=== PATIENT | female | born 1995 | race Two or more races ===

== ENCOUNTER 2024-04-27 10:08 | Outpatient (OUT) | payer BC, SELFPAY ==
--- NOTE | 2024-04-27 10:11 | US_ITS ---
[address] [address] Patient Name: COLE TIJERINA MRN: [id number] date: 1995 Sex: F Assigned Patient Location: [facility] Current Patient Location: [facility] Accession/Order Number: [id number] Exam Date: 04/27/2024 10:11 Report Date: 04/27/2024 12:12 At the request of: WALE BRICEÑO Procedure: US OB transvaginal EXAMINATION: US OB transvaginal HISTORY: MISSED MENSES COMPARISON: No relevant comparison available. FINDINGS: Haynes intrauterine gestation Gestational sac: 4.69 cm, 10 weeks 2 days CRL: 3.54 cm, 10 weeks 3 days Yolk sac: 5.1 mm Heart rate: 160 beats minute Cervix: Closed, 3.5 cm The uterus is normal, anteverted, anteflexed The ovaries are normal. Clinical age: 10 weeks 4 days Clinical HILLARY: 11/19/2024 Ultrasound age: 10 weeks 3 days Ultrasound HILLARY: 11/20/2024 US/US OB transvaginal IMPRESSION: Viable haynes intrauterine gestation measuring 10 weeks 3 days Electronically authenticated by: MARGARET JOSEPH Date: 04/27/2024 12:12
== END 2024-04-27 10:09 | disposition home or self-care (01) ==
LOC: NOMS 10:08
PROVIDERS: PCP Family Medicine; Visit Provider Obstetrics & Gynecology
DX: Z34.01 Encounter for supervision of normal first pregnancy, first trimester (principal); Z3A.10 10 weeks gestation of pregnancy; N92.6 Irregular menstruation, unspecified
CPT/HCPCS: 76817

== ENCOUNTER 2024-05-15 11:19 | Outpatient (OUT) | payer BC, SELFPAY ==
--- OUTSIDE RECORDS SUMMARY | 2024-05-15 11:27 | XMS_ITS | CCD ---
Author Organization [facility] Care Team Providers Care Lead Driver Name Role Phone Steffen Guillaume MD Primary Care Provider Allergies Allergy Classification Reported Allergen(s) Allergy Type Date of Onset Reaction(s) Facility (1 source) Shrimp product Propensity to adverse reactions [facility] Problems Problem Classification Problem Date Documented Da te Episodic/Chronic Menstrual disorders (1 source) Missed period; Translations: [Irregular menstruation, unspecified] 04-27-2024 Chronic Other and delivery including normal (2 sources) ; Translations: [Encounter for supervision of normal , unspecified, unspecified trimester] 04-27-2024 Episodic Results Test Name Value Interpretation Reference Range Facil ity HCG ( test) Ql (U)o n 04-27-2024 Interpretation and review of laboratory results Abnormal [facility] Preg Test, Ur Positive [facility] Urinalysis macro (dipstick) panel (U)on 04-27-2024 Bilirubin, UA Negative Negative - 4(7 0) +++ mg/dL [facility] Blood, UA Negative Negative - 50 Calderon/mcL [facility] Clarity, UA Clear [facility] Color, UA Yellow [facility] Glucose, UA Negative Negative - 1999(110) ++++ mg/dL [facility] Interpretation and review of laboratory results Abnormal [facility] Ketones, UA Negative Negative - 160(16) ++++ mg/dL [facility] Leukocytes, UA Trace Negative - 500+++ Eyal/mcL [facility] Nitrite, UA Negative Negative - Positive [facility] Healthcare pH, UA 7.5 5 - 9 [facility] Protein, UA Negative Negative - 1999(20) ++++ mg/dL [facility] Spec Grav, UA 1.02 1 - 1.03 [facility] Urobilinogen, UA 0.2 0.2 - 12 mg/dL [facility] Registrationon 02-17-2021 Registration [id number]#[id number] 0CD:127 [facility] Consent for Treatmenton Consent for Treatment [id number]#[id number] 0CD:127 [facility] Vital Signs Date Time Vital Sign Value Performing Clinician Faci lity 04-27-2024 10:48-0400 Body weight 57.61 kg [facility] Nurse [facility] 04-27-2024 10:48-0400 Diastolic blood pressure 68 mm[Hg] [facility] Nurse [facility] 04-27-2024 10:48-0400 Systolic blood pressure 100 mm[Hg] [facility] Nurse [facility] Healthcare Encounters Encounter Date Encounter Type Care Provider Facility Start: 04-27-2024 End: 04-27-2024 ambulatory Not Available Start: 04-27-2024 End: 04-27-2024 Office outpatient visit 5 minutes [facility] Ob [facility] Nurse [facility] OB Comment on above: GA: 10w4d Procedures Date Procedure Procedure Detail Performing Clinician Start: 04-27-2024 End: 04-27-2024 Urnls dip stick/tablet rgnt non-auto w/o micrscp Anton Cox DO Work Phone: Plan of Treatment Date Care Activity Detail Author Start: 05-28-2024 End: 05-28-2024 Patient encounter procedure 05/28/2024 1:40 PM EST Routine [facility] [address] [place] [address] Anton Cox DO [address] [place] [address] [facility] Start: 04-27-2024 End: 04-27-2025 ABO/Rh ABO/Rh Lab Routine Missed menses , unspecified gestational age Expected: 04/27/2024 (Approximate), Expires: 04/27/2025 [facility] Comment on above: Expected: 04/27/2024 (Approximate), Expires: 04/27/2025 Start: 04-27-2024 End: 04-27-2025 Blood type and Indirect antibody screen panel - Blood Type and screen Lab Routine Missed menses , unspecified gestational age Expected: 04/27/2024 (Approximate), Expires: 04/27/2025 [facility] Work Phone: Comment on above: Expected: 04/27/2024 (Approximate), Expires: 04/27/2025 Start: 04-27-2024 End: 04-27-2025 Drugs of abuse panel - Urine by Screen method Rapid drug screen, urine Lab Routine , unspecified gestational age Encounter for supervision of normal first in first trimester Expected: 04/27/2024 (Approximate), Expires: 04/27/2025 [facility] Comment on above: Expected: 04/27/2024 (Approximate), Expires: 04/27/2025 Start: 04-27-2024 End: 04-27-2025 US Pelvis transvaginal US OB transvaginal Imaging Routine Missed menses Expected: 04/27/2024 (Approximate), Expires: 04/27/2025 [facility] Comment on above: Expected: 04/27/2024 (Approximate), Expires: 04/27/2025 Start: 03-11-2024 Influenza vaccination Influenza Vacc ine (#1) [facility] Bacteria identified in Urine by Culture Urine culture Microbiology Routine Missed menses Ordered: 04/27/2024 [facility] Comment on above: Ordered: 04/27/2024 CBC W Auto Different ial panel - Blood CBC and differential Lab Routine Missed menses , unspecified gestational age Ordered: 04/27/2024 [facility] Comment on above: Ordered: 04/27/2024 Hemoglobin A1c/Hemoglobin.total in Blood Hemoglobin A1c Lab Routine Missed menses , unspecified gestational age Ordered: 04/27/2024 [facility] Comment on above: Ordered: 04/27/2024 Hepatitis B virus surface Ag [Presence] in Serum or Plasma by Immunoassay Hepatitis B surface antigen Lab Routine Missed menses , unspecified gestational age Ordered: 04/27/2024 [facility] Comment on above: Ordered: 04/27/2024 Hepatitis C virus Ab [Presence] in Serum or Plasma by Immunoassay Hepatitis C antibody Lab Routine Missed menses , unspecified gestational age Ordered: 04/27/2024 [facility] Healthcare Comment on above: Ordered: 04/27/2024 HIV-1/HIV-2 antigen/antibody combination immunoassay HIV-1 and HIV-2 antibodies Lab Routine Missed menses , unspecified gestational age Ordered: 04/27/2024 [facility] Healthcare Comment on above: Ordered: 04/27/2024 Reagin Ab [Presence] in Serum by RPR RPR Lab Routine Missed menses , unspecified gestational age Ordered: 04/27/2024 [facility] Healthcare Comment on above: Ordered: 04/27/2024 Rubella antibody, IgG Rubella an tibody, IgG Lab Routine Missed menses , unspecified gestational age Ordered: 04/27/2024 [facility] Comment on above: Ordered: 04/27/2024 Payers Date Payer Category Payer [facility] BCBS [id number] 2018 Unknown [id number] 1995 Unknown [id number] Social History Date Type Detail Facility Tobacco smoking stat [facility] Tobacco smoking consumption unknown [facility] Start: 02-27-2024 [facility] Start: 1995 Sex assigned at Not on file [facility] Gender identity Not on file [facility] History of Present illness Narrative 04-27-2024 Sophy Bhakta - 04/27/2024 10:30 AM EDT Note Date & Type Note Facility 04-27-2024 History of Presen t illness Narrative Reason for Appointment: Patient ID: Alisha Batista is a 28 y.o. female who presents for Initial Visit Patient presents today for a Nurse OB Intake appointment. Patient is 10w4d with a Estimated Date of Delivery: 11/19/24 OB History Para Term AB Living 1 SAB IAB Ectopic Multiple Live Births # Outcome Date GA Lbr Lew/2nd Weight Sex Type Anes PTL Lv 1 Current Current Medications: currently has no medications in their medication list. Medical History: Active Ambulatory Problems Diagnosis Date Noted No Active Ambulatory Problems Resolved Ambulatory Problems Diagnosis Date Noted No Resolved Ambulatory Problems No Additional Past Medical History No family history on file. Social History Tobacco Use Smoking status: Not on file Smokeless tobacco: Not on file Substance Use Topics Alcohol use: Not on file Drug use: Not on file History reviewed. No pertinent surgical history. Allergies Allergen Reactions Shrimp (Diagnostic) Vitals: There is no height or weight on file to calculate BMI. BP: 100/68 Patient's last menstrual period was 02/13/2024. Assessment/Plan Diagnoses and all orders for this visit: Missed menses - Type and screen; Future - ABO/Rh; Future - CBC and differential - Hemoglobin A1c - RPR - Rubella antibody, IgG - Hepatitis B surface antigen - Hepatitis C antibody - HIV-1 and HIV-2 antibodies - Urine culture - US OB transvaginal; Future - POCT , urine manually resulted - POCT urinalysis dipstick manually resulted , unspecified gestational age - Type and screen; Future - ABO/Rh; Future - CBC and differential - Hemoglobin A1c - RPR - Rubella antibody, IgG - Hepatitis B surface antigen - Hepatitis C antibody - HIV-1 and HIV-2 antibodies - Rapid drug screen, urine; Future Encounter for supervision of normal first in first trimester - Rapid drug screen, urine; Future Nurse Note: OB Intake: Patient presents today for first OB visit. Patients history has been reviewed in great detail including any potential risks. Patient signed consent forms and patient desires testing in both trimesters. Patient currently has no complaints and has been advised to drink 6-8 glasses of water a day, eat no raw or undercooked meat, and stay away from [facility]. Patient has also been advised to not change litter boxes and eat 6 small meals a day. Patient has been consulted regarding the do's and don'ts of . Patient was given labs and all questions and concerns were answered. Follow Up: Patient is to return in 4 weeks for routine OB appointment. Follow Up: Patient is to have labs drawn at directed and return to office for initial OB appointment with provider. Patient may call office as needed with any concerns or questions. Nurse Visit Completed by: Sophy Bhakta documented in this encounter [facility] Evaluation note Note Date & Type Note Facility Evaluation note Diagnosis Missed menses , unspecified gestational age Encounter for supervision of normal first in first trimester documented in this encounter [facility] Summary Purpose Family History No Family History Records FoundNo Family History Records Found Advance Directives No Advanced Directives Records FoundNo Advanced Directives Records Found Additional Source Comments INFORMATION SOURCE (unrecogn ized section and content) DATE CREATED AUTHOR 02/18/2021 Rony Piccsy [facility] DATE CREATED AUTHOR AUTHOR'S ORGANIZ ATION 04/30/2024 [facility] EPIC Reason for Visit (unrecogniz ed section and content) Reason Comments Initial Visit Care Teams (unrecognized sec tion and content) Lead Driver Relationship Specialty Start Date End Date Steffen Guillaume MD [address] [facility] [address] [place] [address] PCP - General Family Medicine 11/16/22 FOR RECORDS PERTAINING TO PATIENTS WHO ARE OR HAVE BEEN ENROLLED IN A CHEMICAL DEPENDENCY/SUBSTANCEABUSE PROGRAM, SOME INFORMATION MAY BE OMITTED. This clinical summary was aggregated from multiple sources. Caution should be exercised in using it in the provision of clinical care. This summary normalizes information from multiple sources, and as a consequence, information in this document may materially change the coding, format and clinical context of patient data. In addition, data may be omitted in some cases. CLINICAL DECISIONS SHOULD BE BASED ON THE PRIMARY CLINICAL RECORDS. [employer] provides no warranty or guarantee of the accuracy or completeness of information in this document.
[2024-05-15 11:40] LABS: Basophils Percent Auto 0.2 % (0.2-2.0); Eosinophils Absolute Auto 0.1 10^3/uL (0.0-0.7); Eosinophils Percent Auto 1.1 % (0.9-7.0); Hematocrit 36.9 % (36.0-48.0); Hemoglobin 12.8 g/dL (12.0-16.0); Immature Granulocytes Abs Auto 0.03 10^3/uL (0.00-0.03); Immature Granulocytes Pct Auto 0.3 % (0.0-0.5); Lymphocytes Absolute Auto 1.8 10^3/uL (1.2-3.8); Lymphocytes Percent Auto 19.8 % (20.5-60.0); Mean Corpuscular HGB Conc 34.7 g/dL (29.9-35.2); Mean Corpuscular Hemoglobin 29.9 pg (26.7-34.0); Mean Corpuscular Volume 86.2 fL (81.0-99.0); Mean Platelet Volume 9.4 fL (9.5-13.5); Monocytes Absolute Auto 0.5 10^3/uL (0.3-0.8); Monocytes Percent Auto 5.5 % (1.7-12.0); Neutrophils Absolute Auto 6.5 10^3/uL (1.4-6.5); Neutrophils Percent Auto 73.1 % (43.0-75.0); Platelet Count 309 10^3/uL (150-450); Red Blood Count 4.28 10^6/uL (4.20-5.40); Red Cell Distribution Width 12.2 % (11.0-15.0)
[2024-05-15 11:52] LABS: Amphetamine Screen Urine NEGATIVE (NEGATIVE); Barbiturates Screen Urine NEGATIVE (NEGATIVE); Benzodiazepines Screen Urine NEGATIVE (NEGATIVE); Buprenorphine Screen Urine NEGATIVE (NEGATIVE); Cannabinoid Screen Urine POSITIVE (NEGATIVE); Cocaine Screen Urine NEGATIVE (NEGATIVE); Methadone Screen Urine NEGATIVE (NEGATIVE); Methamphetamines Screen Urine NEGATIVE (NEGATIVE); Opiate Screen Urine NEGATIVE (NEGATIVE); Oxycodone Screen Urine NEGATIVE (NEGATIVE); Phencyclidine Screen Urine NEGATIVE (NEGATIVE); Tricyclic Antidepressant Urine NEGATIVE (NEGATIVE)
[2024-05-16 02:14] LABS: Estimated Average Glucose 103 mg/dL; Glycohemoglobin A1C 5.2 % (4.5-6.2)
[2024-05-16 06:14] LABS: HBsAg Screen Negative (Negative)
[2024-05-16 08:13] LABS: HCV Ab Non Reactive (Non Reactive); HIV Ab/p24 Ag Screen Non Reactive (Non Reactive)
[2024-05-16 12:10] LABS: Rapid Plasma Reagin, Quant Non Reactive titer (NonRea<1:1)
[2024-05-18 22:06] LABS: Cannabinoid Positive (.); Carboxy THC Conf, MS, UR 63 ng/mL (Cutoff=10)
== END 2024-05-15 11:20 | disposition home or self-care (01) ==
LOC: LAB 11:19
PROVIDERS: PCP Family Medicine; Visit Provider Obstetrics & Gynecology
DX: Z34.90 Encounter for supervision of normal pregnancy, unspecified, unspecified trimester (principal); N92.6 Irregular menstruation, unspecified
CPT/HCPCS: 36415; 80307; 80349; 83036; 85025; 86592; 86762; 86803; 86850; 86900; 86901; 87086; 87340; 87389

== ENCOUNTER 2024-06-25 21:58 | Outpatient (REF) | payer BC, SELFPAY ==
--- OUTSIDE RECORDS SUMMARY | 2024-06-25 22:02 | XMS_ITS | CCD ---
Author Organization [facility] Care Team Providers Care College Dean Name Role Phone Steffen Guillaume MD Primary Care Provider WALE COX Attending Unavailable Allergies Allergy Classification Reported Allergen(s) Allergy Type Date of Onset Reaction(s) Facility (5 sources) Shrimp product Propensity to adverse reactions [facility] Healthcare Problems Problem Classification Problem Date Documented Da te Episodic/Chronic Menstrual disorders (1 source) Missed period; Translations: [Irregular menstruation, unspecified] 04-27-2024 Chronic Other complications of (5 sources) Headache; Translations: [Other specified related conditions, unspecified trimester] Onset: 05-28-2024 05-28-2024 Episodic Other and delivery including normal (7 sources) ; Translations: [Encounter for supervision of normal , unspecified, unspecified trimester] Onset: 05-28-2024 04-27-2024 Episodic Other screening for suspected conditions (not mental disorders or infectious disease) (5 sources) Patient encounter status; Translations: [Encounter for other specified screening] Onset: 05-28-2024 05-28-2024 Episodic Residual codes; unclassified (5 sources) Gestation period, 15 weeks; Translations: [15 weeks gestation of ] Onset: 05-28-2024 05-28-2024 Episodic Results Test Name Value Interpretation Reference Range Facil ity Urinalysis macro (dipstick) panel (U)on 05-28-2024 Bilirubin, UA Negative Negative - 4(7 0) +++ mg/dL [facility] Blood, UA Negative Negative - 50 Calderon/mcL [facility] Clarity, UA Clear [facility] Color, UA Yellow [facility] Glucose, UA Negative Negative - 2000(110) ++++ mg/dL [facility] Interpretation and review of laboratory results Normal [facility] Ketones, UA Negative Negative - 160(16) ++++ mg/dL [facility] Leukocytes, UA Negative Negative - 500+++ Eyal/mcL [facility] Nitrite, UA Negative Negative - Positive [facility] pH, UA 7 5 - [address] [facility] e Protein, UA Negative Negative - 2000(20) ++++ mg/dL [facility] Spec Grav, UA 1.015 1 - 1.03 [facility] Urobilinogen, UA 0.2 0.2 - 12 mg/dL [facility] ALL CBC WITH AUTO DIFFon BASOPHILS ABSOLUTE AUTO 0 [facility] Basophils/100 WBC (Bld) 0.2 % 0.2 - 2.0 % [facility] Eosinophils/100 WBC (Bld) 1.1 % 0.9 - 7.0 % [facility] Erythrocyte distribution width (RBC) [Ratio] 12.2 % 11.0 - 15.0 % [facility] Hematocrit (Bld) [Volume fraction] 36.9 % 36.0 - 48.0 % [facility] Hem[facility] (Bld) [Mass/Vol] 12.8 g/dL 12.0 - 16.0 g/dL [facility] IMMATURE GRANULOCYTES ABS AUTO 0.03 [facility] Immature granulocytes/100 WBC (Bld) 0.3 % 0.0 - 0.5 % [facility] Interpretation and review of laboratory results Abnormal [facility] LYMPHOCYTES ABSOLUTE AUTO 1.8 [facility] Lymphocytes/100 WBC (Bld) 19.8 % Low 20.5 - 60.0 % [facility] MCH (RBC) [Entitic mass] 29.9 pg 26.7 - 34.0 pg [facility] MCHC (RBC) [Mass/Vol] 34.7 g/dL 29.9 - 35.2 g/ dL [facility] MCV (RBC) [Entitic vol] 86.2 fL 81.0 - 99.0 fL [facility] MONOCYTES ABSOLUTE AUTO 0.5 [facility] Monocytes/100 WBC (Bld) 5.5 % 1.7 - 12.0 % [facility] NEUTROPHILS ABSOLUTE AUTO 6.5 [facility] Neutrophils/100 WBC (Bld) 73.1 % 43.0 - 75.0 % [facility] Platelet mean volume (Bld) [Entitic vol] 9.4 fL Low 9.5 - 13.5 fL [facility] EO # 0.1 [facility] PLT 309 [facility] RBC 4.28 [facility] WBC 9 [facility] HCG ( test) Ql (U)o n 04-27-2024 Interpretation and review of laboratory results Abnormal [facility] Preg Test, Ur Positive [facility] care [facility] Urinalysis macro (dipstick) panel (U)on 04-27-2024 Bilirubin, UA Negative Negative - 4(7 0) +++ mg/dL [facility] Blood, UA Negative Negative - 50 Calderon/mcL [facility] Clarity, UA Clear [facility] re Color, UA Yellow [facility] e Glucose, UA Negative Negative - 1999(110) ++++ mg/dL [facility] Interpretation and review of laboratory results Abnormal [facility] Ketones, UA Negative Negative - 160(16) ++++ mg/dL [facility] Leukocytes, UA Trace Negative - 500+++ Eyal/mcL [facility] Nitrite, UA Negative Negative - Positive [facility] pH, UA 7.5 5 - [address] [facility] e Protein, UA Negative Negative - 1999(20) ++++ mg/dL [facility] Spec Grav, UA 1.02 1 - 1.03 [facility] Urobilinogen, UA 0.2 0.2 - 12 mg/dL [facility] Registrationon 02-17-2021 Registration [id number]#[id number] 0CD:[id number] Normal [facility] Consent for Treatmenton Consent for Treatment [id number]#1.0 0CD:127 Normal [facility] Vital Signs Date Time Vital Sign Value Performing Clinician Layne armando 05-28-2024 14:27-0500 Body weight 59.88 kg [employer] Work Phone: [facility] 05-28-2024 14:27-0500 Diastolic blood pressure 62 mm[Hg] [employer] DO Work Phone: [facility] 05-28-2024 14:27-0500 Systolic blood pressure 100 mm[Hg] Wale Kenny DO Work Phone: [facility] 04-27-2024 10:48-0400 Body weight 57.61 kg Noms Nurse [facility] 04-27-2024 10:48-0400 Diastolic blood pressure 68 mm[Hg] Noms Nurse [facility] Healthcare 04-27-2024 10:48-0400 Systolic blood pressure 100 mm[Hg] [facility]oms Nurse [facility] Encounters Encounter Date Encounter Type Care Provider Facility Start: 05-28-2024 End: 05-28-2024 Bamboo flowsheet Wale Kenny DO Work Phone: [facility] Start: 05-28-2024 End: 05-28-2024 Bamboo flowsheet Wale Kenny DO Work Phone: [facility] Start: 05-28-2024 End: 05-28-2024 ambulatory WALE KENNY Not Available Start: 05-28-2024 End: 05-28-2024 flow sheet Wale Kenny DO Work Phone: [facility] Comment on above: Second trimester pre gnancy; 15 weeks gestation of ; Screening, , for anatomic survey; headache, antepartum Start: 05-15-2024 End: 05-15-2024 [facility] Result Encounter Generic External Data Provider [facility] Unsolicited Start: 05-15-2024 End: 05-15-2024 [facility] Result Encounter Generic External Data Provider [facility] Unsolicited Start: 04-27-2024 End: 04-27-2024 ambulatory WALE KENNY Not Available Start: 04-27-2024 End: 04-27-2024 Office outpatient visit 5 minutes [facility] Kenny Nurse [facility] Comment on above: GA: 10w4d Procedures Date Procedure Procedure Detail Performing Clinician Start: 05-28-2024 Urnls dip stick/tabl et rgnt non-auto w/o micrscp Wale Kenny DO Work Phone: Start: 05-15-2024 ALL CBC WITH AUTO DIFF Wale Kenny DO Work Phone: Start: 04-27-2024 End: 04-27-2024 Urnls dip stick/tablet rgnt non-auto w/o micrscp Wale Cox DO Work Phone: Plan of Treatment Date Care Activity Detail Author Start: 06-25-2024 End: 06-25-2024 Patient encounter procedure 06/25/2024 2:50 PM EST Routine [facility] [address] [place] [address] Zoey Dickson PA [address] [place] [address] [facility] Start: 05-28-2024 End: 05-28-2025 US for US OB ANATOMY SINGLE W US OB CERVICAL LENGTH Imaging Routine Second trimester Screening, , for anatomic survey Expected: 05/28/2024 (Approximate), Expires: 05/28/2025 [facility] Work Phone: Comment on above: Expected: 05/28/2024 (Approximate), Expires: 05/28/2025 Start: 05-28-2024 End: 05-28-2024 Patient encounter procedure 05/28/2024 1:40 PM EST Routine [facility] [address] [place] [address] Wale Cox, DO [address] [place], [place] [address] [place], [place] [id number] [facility] Start: 04-27-2024 End: 04-27-2025 ABO/Rh ABO/Rh Lab Routine Missed menses , unspecified gestational age Expected: 04/27/2024 (Approximate), Expires: 04/27/2025 [facility] Comment on above: Expected: 04/27/2024 (Approximate), Expires: 04/27/2025 Start: 04-27-2024 End: 04-27-2025 Blood type and Indirect antibody screen panel - Blood Type and screen Lab Routine Missed menses , unspecified gestational age Expected: 04/27/2024 (Approximate), Expires: 04/27/2025 [facility] Healthcare Work Phone: Comment on above: Expected: 04/27/2024 (Approximate), Expires: 04/27/2025 Start: 04-27-2024 End: 04-27-2025 Drugs of abuse panel - Urine by Screen method Rapid drug screen, urine Lab Routine , unspecified gestational age Encounter for supervision of normal first in first trimester Expected: 04/27/2024 (Approximate), Expires: 04/27/2025 [facility] Comment on above: Expected: 04/27/2024 (Approximate), Expires: 04/27/2025 Start: 04-27-2024 End: 04-27-2025 US Pelvis transvaginal US OB transvaginal Imaging Routine Missed menses Expected: 04/27/2024 (Approximate), Expires: 04/27/2025 [facility] Comment on above: Expected: 04/27/2024 (Approximate), Expires: 04/27/2025 Start: 03-11-2024 Influenza vaccination Influenza Vacc ine (#1) [facility] Bacteria identified in Urine by Culture Urine culture Microbiology Routine Missed menses Ordered: 04/27/2024 [facility] Comment on above: Ordered: 04/27/2024 CBC W Auto Different ial panel - Blood CBC and differential Lab Routine Missed menses , unspecified gestational age Ordered: 04/27/2024 [facility] Comment on above: Ordered: 04/27/2024 Hemoglobin A1c/Hemoglobin.total in Blood Hemoglobin A1c Lab Routine Missed menses , unspecified gestational age Ordered: 04/27/2024 [facility] Comment on above: Ordered: 04/27/2024 Hepatitis B virus surface Ag [Presence] in Serum or Plasma by Immunoassay Hepatitis B surface antigen Lab Routine Missed menses , unspecified gestational age Ordered: 04/27/2024 [facility] Comment on above: Ordered: 04/27/2024 Hepatitis C virus Ab [Presence] in Serum or Plasma by Immunoassay Hepatitis C antibody Lab Routine Missed menses , unspecified gestational age Ordered: 04/27/2024 [facility] Comment on above: Ordered: 04/27/2024 HIV-1/HIV-2 antigen/antibody combination immunoassay HIV-1 and HIV-2 antibodies Lab Routine Missed menses , unspecified gestational age Ordered: 04/27/2024 [facility] Comment on above: Ordered: 04/27/2024 Reagin Ab [Presence] in Serum by RPR RPR Lab Routine Missed menses , unspecified gestational age Ordered: 04/27/2024 [facility] Comment on above: Ordered: 04/27/2024 Rubella antibody, IgG Rubella an tibody, IgG Lab Routine Missed menses , unspecified gestational age Ordered: 04/27/2024 [facility] Healthcare Comment on above: Ordered: 04/27/2024 Payers Date Payer Category Payer [facility] Memb er Subscriber Plan / Payer (Effective 2018-Present) Name: Cliff Batistaley Relation to Subscriber: Self Name: Alisha Batista Payer ID: Not on file Type: Not on file Address: [place] [id number] 2018 Unknown [id number] 1995 Unknown [id number] 1995 Unknown [id number] Social History Date Type Detail Facility Tobacco smoking stat [facility] Tobacco smoking consumption unknown [facility] Start: 02-27-2024 [facility] Start: 1995 Sex assigned at Not on file [facility] Gender identity Not on file [facility] History of Present illness Narrative 05-28-2024 Neetu Singh LPN - 05/28/2024 1:40 PM EST Note Date & Type Note Facility 05-28-2024 History of Presen t illness Narrative Reason for Appointment: Patient ID: Alisha Batista is a 28 y.o. female who presents for Routine Visit Patient presents today for Return OB appointment. MEDICATIONS No current outpatient medications ALLERGIES Allergies Allergen Reactions Shrimp (Diagnostic) PROBLEMS Active Ambulatory Problems Diagnosis Date Noted No Active Ambulatory Problems Resolved Ambulatory Problems Diagnosis Date Noted No Resolved Ambulatory Problems No Additional Past Medical History HISTORY PAST MEDICAL HISTORY SOCIAL HISTORY No past medical history on file. Social History Tobacco Use Smoking status: Not on file Smokeless tobacco: Not on file Substance Use Topics Alcohol use: Not on file Drug use: Not on file FAMILY HISTORY No family history on file. SURGICAL HISTORY History reviewed. No pertinent surgical history. REVIEW OF SYSTEMS Review of Systems: Review of Systems All other systems reviewed and are negative. OBJECTIVE Objective: Physical Exam Constitutional: Appearance: Normal appearance. She is well-developed. Cardiovascular: Rate and Rhythm: Normal rate and regular rhythm. Pulmonary: Effort: Pulmonary effort is normal. Breath sounds: Normal breath sounds. Abdominal: General: Bowel sounds are normal. There is no distension. Palpations: Abdomen is soft. Tenderness: There is no abdominal tenderness. There is no guarding or rebound. Musculoskeletal: General: No swelling. Normal range of motion. Right lower leg: No edema. Left lower leg: No edema. Neurological: Mental Status: She is alert and oriented to person, place, and time. Skin: General: Skin is warm and dry. Psychiatric: Mood and Affect: Mood normal. Behavior: Behavior normal. Vitals and nursing note reviewed. Exam conducted with a bobbin cleaner present. Vitals: There is no height or weight on file to calculate BMI. BP: 100/62 Patient's last menstrual period was 02/13/2024. ASSESSMENT & PLAN ICD-10-CM 1. Second trimester Z34.92 POCT urinalysis dipstick manually resulted 2. 15 weeks gestation of Z3A.15 New OB: Patient presents today for 1st time obstetrics appointment with provider. Patient is currently 15w0d . Patients history has been reviewed in great detail including any potential risks. Patient stated she currently has no complaints. Expectations throughout regarding labs, ultrasounds, and appointments have been discussed with the patient in detail. It was reiterated that the patient is to drink 6-8 glasses of water a day, eat 6 small meals a day, do not consume raw or undercooked meat, and stay away from [facility]. Patient has been consulted regarding any further do's and don'ts of . Patient voiced understanding and all questions and concerns were answered. Gave patient anatomy scan order so then she will be able to schedule appointment at 20 weeks gestation. Patient voiced that she got a headache for at least 3 days one week and will take Tylenol PRN and will hold off on Magnesium daily, but if needed patient will call office. Orders Placed This Encounter Procedures US OB ANATOMY SINGLE W US OB CERVICAL LENGTH POCT urinalysis dipstick manually resulted Follow Up: Patient is to return in 4 weeks for routine OB appointment. Documented by Neetu Singh LPN on behalf of: Wale Cox DO documented in this encounter [facility] History of Present illness Narrative 04-27-2024 Sophy Yony - 04/27/2024 10:30 AM EDT Note Date [...] or undercooked meat, and stay away from [facility]. Patient has also been advised to [...] by: Sophy Bhakta documented in this encounter [facility] Evaluation note Note Date & Type Note Facility Evaluation note Diagnosis Missed menses , unspecified gestational age Encounter for supervision of normal first in first trimester documented in this encounter [facility] Evaluation note Note Date & Type Note Facility Evaluation note Diagnosis Second trimester state, incidental 15 weeks gestation of Screening, , for anatomic survey Encounter for anatomic survey headache, antepartum documented in this encounter [facility] Summary Purpose Family History No Family History Records FoundNo Family History Records Found Advance Directives No Advanced Directives Records FoundNo Advanced Directives Records Found Additional Source Comments INFORMATION SOURCE (unrecogn ized section and content) DATE CREATED AUTHOR 02/18/2021 [facility] DATE CREATED AUTHOR AUTHOR'S ORGANIZ ATION 05/30/2024 [facility] EPIC Reason for Visit (unrecogniz ed section and content) Reason Comments Initial Visit Reason Comments Routine Visit Care Teams (unrecognized sec tion and content) College Dean Relationship Specialty Start Date End Date Steffen Guillaume MD [address] [facility] [address] [place] [address] PCP - General Family Medicine 11/16/22 College Dean Relationship Specialty Start Date End Date Steffen Guillaume MD [address] [facility] [address] [place] [address] PCP - General Family Medicine 11/16/22 College Dean Relationship Specialty Start Date End Date Steffen Guillaume MD [address] [facility] [address] [place] [address] PCP - General Family Medicine 11/16/22 College Dean Relationship Specialty Start Date End Date Steffen Guillaume MD [address] [facility] [address] [place] [address] PCP - General Family Medicine 11/16/22 FOR [...] BE BASED ON THE PRIMARY CLINICAL RECORDS. [employer] [facility]. provides no warranty or guarantee of the accuracy or completeness of information in this document.
== END 2024-06-25 21:59 | disposition home or self-care (01) ==
LOC: LAB 21:58
PROVIDERS: PCP Family Medicine; Visit Provider Physician Assistant
DX: Z01.419 Encounter for gynecological examination (general) (routine) without abnormal findings (principal)
CPT/HCPCS: 88175

== ENCOUNTER 2024-07-02 12:55 | Outpatient (OUT) | payer BC, SELFPAY ==
--- NOTE | 2024-07-02 12:57 | US_ITS ---
[address] [address] Patient Name: COLE TIJERINA MRN: [id number] date: 1995 Sex: F Assigned Patient Location: US Current Patient Location: Accession/Order Number: [id number] Exam Date: 07/02/2024 13:05 Report Date: 07/02/2024 15:42 At the request of: WALE BRICEÑO Procedure: US OB anatomy EXAMINATION: US OB cervical length, US OB anatomy HISTORY: Anatomic Survey COMPARISON: No relevant comparison available. TECHNIQUE: Transabdominal sonographic examination was performed for obstetrical and evaluation. FINDINGS: Number: 1 Heart Rate: 147 H.B. /min Amniotic Fluid Volume: Subjectively Placental Location: Anterior, grade 2. The placental edge is 0.8 cm from the internal os position: Cephalic presentation, variable lie Cervix Length: 5.5 cm, closed Normal anatomy: Lateral ventricles, cerebellum, posterior fossa, nose, lips, orbits, four-chamber heart, RVOT, LVOT, stomach, abdominal cord insertion, bladder, umbilical arteries, three-vessel cord, extremities Suboptimal visualization: Diaphragm, kidneys, spine BIOMETRY: BPD: 4.83 cm; 20 weeks 4 days; 75% HC: 18.3 cm; 20 weeks 5 days; 75% AC: 15.5 cm; 20 weeks 5 days; 68% FL: 3.2 cm; 19 weeks 6 days; 38% EFW:350 g; 67%, 12 ounces FL/AC: 20.47 FL/BPD: 65.8 HC/AC: 1.18 GESTATIONAL AGE: Age by EDC: 20 weeks 0 days HILLARY by EDC: 11/19/2024 Age by current US: 20 weeks 3 days HILLARY by current US: 11/16/2024 US/US OB anatomy IMPRESSION: Marginal placenta previa Suboptimal visualization of the diaphragm, kidneys and spine *Reference: [employer] Practice Guideline for the performance of Obstetric Ultrasound Examinations, April 10, 2007. Electronically authenticated by: MARGARET JOSEPH Date: 07/02/2024 15:42
--- NOTE | 2024-07-02 12:57 | US_ITS ---
[address] [address] Patient Name: COLE TIJERINA MRN: [id number] date: 1995 Sex: F Assigned Patient Location: US Current Patient Location: Accession/Order Number: [id number] Exam Date: 07/02/2024 13:05 Report Date: 07/02/2024 15:42 At the request of: WALE BRICEÑO Procedure: US OB cervical length EXAMINATION: US OB cervical length, US OB anatomy HISTORY: Anatomic Survey COMPARISON: No relevant comparison available. TECHNIQUE: Transabdominal sonographic examination was performed for obstetrical and evaluation. FINDINGS: Number: 1 Heart Rate: 147 H.B. /min Amniotic Fluid Volume: Subjectively Placental Location: Anterior, grade 2. The placental edge is 0.8 cm from the internal os position: Cephalic presentation, variable lie Cervix Length: 5.5 cm, closed Normal anatomy: Lateral ventricles, cerebellum, posterior fossa, nose, lips, orbits, four-chamber heart, RVOT, LVOT, stomach, abdominal cord insertion, bladder, umbilical arteries, three-vessel cord, extremities Suboptimal visualization: Diaphragm, kidneys, spine BIOMETRY: BPD: 4.83 cm; 20 weeks 4 days; 75% HC: 18.3 cm; 20 weeks 5 days; 75% AC: 15.5 cm; 20 weeks 5 days; 68% FL: 3.2 cm; 19 weeks 6 days; 38% EFW:350 g; 67%, 12 ounces FL/AC: 20.47 FL/BPD: 65.8 HC/AC: 1.18 GESTATIONAL AGE: Age by EDC: 20 weeks 0 days HILLARY by EDC: 11/19/2024 Age by current US: 20 weeks 3 days HILLARY by current US: 11/16/2024 US/US OB cervical length IMPRESSION: Marginal placenta previa Suboptimal visualization of the diaphragm, kidneys and spine *Reference: [employer] Practice Guideline for the performance of Obstetric Ultrasound Examinations, April 10, 2007. Electronically authenticated by: MARGARET JOSEPH Date: 07/02/2024 15:42
--- OUTSIDE RECORDS SUMMARY | 2024-07-02 13:17 | XMS_ITS | CCD ---
Author Organization [facility] CliniSywy Care Team Providers Care Painter Assistant Name Role Phone Aundrea LINDA, Steffen Jackson Primary Care Provider [phone] WALE COX Attending Unavailable ZOEY MCNEILL Attending Unavailable Allergies Allergy Classification Reported Allergen(s) Allergy Type Date of Onset Reaction(s) Facility (9 sources) Shrimp product Propensity to adverse reactions [facility] Problems Problem Classification Problem Date Documented Date Episodic/Chronic Immunizations and screening for infectious disease (2 sources) Exposure to sexually transmissible disorder; Translations: [Contact with and (suspected) exposure to infections with a predominantly sexual mode of transmission] 06-25-2024 Episodic Menstrual disorders (1 source) Missed period; Translations: [Irregular menstruation, unspecified] 04-27-2024 Chronic Other complications of (9 sources) Headache; Translations: [Other specified related conditions, unspecified trimester] Onset: 05-28-2024 05-28-2024 Episodic Other female genital disorders (2 sources) Vaginal discharge; Translations: [Other specified noninflammatory disorders of vagina] 06-25-2024 Episodic Other and delivery including normal (13 sources) ; Translations: [Encounter for supervision of normal , unspecified, unspecified trimester] Onset: 05-28-2024 04-27-2024 Episodic Other screening for suspected conditions (not mental disorders or infectious disease) (11 sources) Patient encounter status; Translations: [Encounter for other specified screening] Onset: 05-28-2024 05-28-2024 Episodic Residual codes; unclassified (9 sources) Gestation period, 15 weeks; Translations: [15 weeks gestation of ] Onset: 05-28-2024 05-28-2024 Episodic Residual codes; unclassified (2 sources) Gestation period, 19 weeks; Translations: [19 weeks gestation of ] 06-25-2024 Episodic Results Test Name Value Interpretation Reference Range Facil ity RECURRENT VAGINITIS (HTRX)on 06-26-2024 ATOPOBIUM VAGINAE 15.84 Abnormal [facility]care ATOPOBIUM VAGINAE Detected Abnormal [facility] BVAB 2,3 (BACTERIAL VAGINOSIS ASSOCIATED BACTERIA 2, 3); MOBILUNCUS SPP 24.558 Abnormal [facility] BVAB 2,3 (BACTERIAL VAGINOSIS ASSOCIATED BACTERIA 2, 3); MOBILUNCUS SPP Detected Abnormal [facility] SOHAM ALBICANS, PARAPSILOSIS, TROPICALIS 0 [facility] SOHAM ALBICANS, PARAPSILOSIS, TROPICALIS Not detected [facility] SOHAM GLABRATA 0 [facility] Hea lthcare SOHAM GLABRATA Not detected [facility] SOHAM KRUSEI 0 [facility] Healt hcare SOHAM KRUSEI Not [facility] CHLAMYDIA TRACHOMATIS 0 [facility] CHLAMYDIA TRACHOMATIS Not detected N [facility] GARDNERELLA VAGINALIS 21.394 Abnormal [facility] GARDNERELLA VAGINALIS Detected Abnormal [facility] Interpretation and review of laboratory results Abnormal [facility] MEGASPHAERA (TYPES 1, 2) 0 [facility] MEGASPHAERA (TYPES 1, 2) Not detected [facility] MYCOPLASMA GENITALIUM 0 [facility] MYCOPLASMA GENITALIUM Not detected N [facility] NEISSERIA GONORRHOEAE 0 [facility] NEISSERIA GONORRHOEAE Not detected N [facility] TET B, TET M 18.181 Abnormal [facility] Healthc are TET B, TET M Detected Abnormal [facility] Healthc are TRICHOMONAS VAGINALIS 0 [facility] TRICHOMONAS VAGINALIS Not detected [facility] Urinalysis macro (dipstick) panel (U)on 06-25-2024 Bilirubin, UA Negative Negative - 4(7 0) +++ mg/dL [facility] Blood, UA Negative Negative - 50 Calderon/mcL [facility] Clarity, UA Clear [facility] Color, UA Yellow [facility] Healthcar e Glucose, UA Negative Negative - 2000(110) ++++ mg/dL [facility] Interpretation and review of laboratory results Abnormal [facility] Ketones, UA Negative Negative - 160(16) ++++ mg/dL [facility] Leukocytes, UA Trace Negative - 500+++ Eyal/mcL [facility] Nitrite, UA Negative Negative - Positive [facility] pH, UA 6 5 - 9 [facility] Protein, UA Negative Negative - 1999(20) ++++ mg/dL [facility] Spec Grav, UA 1.01 1 - 1.03 [facility] Urobilinogen, UA 0.2 0.2 - 12 mg/dL [facility] Healthcar e Urinalysis macro (dipstick) panel (U)on 05-28-2024 Bilirubin, UA Negative Negative - 4(7 0) +++ mg/dL [facility] Blood, UA Negative Negative - 50 Calderon/mcL [facility] Clarity, UA Clear Located within [facility] re Color, UA Yellow [facility] e Glucose, UA Negative Negative - 1999(110) ++++ mg/dL [facility] Interpretation and review of laboratory results Normal [facility] Ketones, UA Negative Negative - 160(16) ++++ mg/dL [facility] Leukocytes, UA Negative Negative - 500+++ Eyal/mcL [facility] Nitrite, UA Negative Negative - Positive [facility] pH, UA 7 5 - 9 [facility] e Protein, UA Negative Negative - 1999(20) ++++ mg/dL [facility] Spec Grav, UA 1.015 1 - 1.03 [facility] Urobilinogen, UA 0.2 0.2 - 12 mg/dL [facility] e ALL CBC WITH AUTO DIFFon BASOPHILS ABSOLUTE AUTO 0 [facility] Basophils/100 WBC (Bld) 0.2 % 0.2 - 2.0 % [facility] Eosinophils/100 WBC (Bld) 1.1 % 0.9 - 7.0 % [facility] Erythrocyte distribution width (RBC) [Ratio] 12.2 % 11.0 - 15.0 % [facility] Hematocrit (Bld) [Volume fraction] 36.9 % 36.0 - 48.0 % [facility] Hemoglobin (Bld) [Mass/Vol] 12.8 g/dL 12.0 - 16.0 g/dL [facility] IMMATURE GRANULOCYTES ABS AUTO 0.03 [facility] Immature granulocytes/100 WBC (Bld) 0.3 % 0.0 - 0.5 % [facility] Interpretation and review of laboratory results Abnormal [facility] LYMPHOCYTES ABSOLUTE AUTO 1.8 [facility] Lymphocytes/100 WBC (Bld) 19.8 % Low 20.5 - 60.0 % [facility] MCH (RBC) [Entitic mass] 29.9 pg 26.7 - 34.0 pg [facility] MCHC (RBC) [Mass/Vol] 34.7 g/dL 29.9 - 35.2 g/ dL [facility] MCV (RBC) [Entitic vol] 86.2 fL 81.0 - 99.0 fL [facility] MONOCYTES ABSOLUTE AUTO 0.5 [facility] Monocytes/100 WBC (Bld) 5.5 % 1.7 - 12.0 % [facility] NEUTROPHILS ABSOLUTE AUTO 6.5 [facility] Neutrophils/100 WBC (Bld) 73.1 % 43.0 - 75.0 % [facility] Platelet mean volume (Bld) [Entitic vol] 9.4 fL Low 9.5 - 13.5 fL [facility] TBH EO # 0.1 [facility] Healthcar e TB PLT 309 [facility] Healthcar e TB RBC 4.28 [facility] TB WBC 9 [facility] HCG ( test) Ql (U)o n 04-27-2024 Interpretation and review of laboratory results Abnormal [facility] Preg Test, Ur Positive [facility] e Urinalysis macro (dipstick) panel (U)on 04-27-2024 Bilirubin, UA Negative Negative - 4(7 0) +++ mg/dL [facility] Blood, UA Negative Negative - 50 Calderon/mcL [facility] Clarity, UA Clear [facility]ated [facility] re Color, UA Yellow [facility] e Glucose, UA Negative Negative - 1999(110) ++++ mg/dL [facility] Interpretation and review of laboratory results Abnormal [facility] Ketones, UA Negative Negative - 160(16) ++++ mg/dL [facility] Leukocytes, UA Trace Negative - 500+++ Eyal/mcL [facility] Nitrite, UA Negative Negative - Positive [facility] pH, UA 7.5 5 - 9 [facility] e Protein, UA Negative Negative - 1999(20) ++++ mg/dL [facility] Spec Grav, UA 1.02 1 - 1.03 [facility] Urobilinogen, UA 0.2 0.2 - 12 mg/dL [facility] Registrationon 02-17-2021 Registration [id number] 0CD:[id number] [facility] Consent for Treatmenton 080 Consent for Treatment [id number] 0CD:127 [facility] Vital Signs Date Time Vital Sign Value Performing Clinician Layne armando 06-25-2024 14:52-0500 Body weight 61.15 kg Zoey WADE Work Phone: [facility] 06-25-2024 14:52-0500 Diastolic blood pressure 70 mm[Hg] Zoey WADE Work Phone: [facility] 06-25-2024 14:52-0500 Systolic blood pressure 104 mm[Hg] Zoey WADE Work Phone: [facility] 05-28-2024 14:27-0500 Body weight 59.88 kg Wale Kenny DO Work Phone: [facility] 05-28-2024 14:27-0500 Diastolic blood pressure 62 mm[Hg] Wale Kenny DO Work Phone: [facility] 05-28-2024 14:27-0500 Systolic blood pressure 100 mm[Hg] Wale Kenny DO Work Phone: [facility] 04-27-2024 10:48-0400 Body weight 57.61 kg [facility] Nurse [facility] 04-27-2024 10:48-0400 Diastolic blood pressure 68 mm[Hg] [facility] Nurse [facility] 04-27-2024 10:48-0400 Systolic blood pressure 100 mm[Hg] [facility] Nurse [facility] Healthcare Encounters Encounter Date Encounter Type Care Provider Facility Start: 06-25-2024 End: 06-25-2024 Patient encounter procedure Zoey WADE Work Phone: [facility] Start: 06-25-2024 End: 06-25-2024 flow sheet Zeoy WADE Work Phone: [facility] Comment on above: 19 weeks gestation o f ; Second trimester ; Screening, , for anatomic survey; Exposure to STD; Vaginal discharge; Well woman exam with routine gynecological exam Start: 06-25-2024 End: 06-25-2024 ambulatory ZOEY MCNEILL Not Available Start: 06-25-2024 End: 06-25-2024 Bamboo flowsheet Zoey WADE Work Phone: [facility] Start: 06-25-2024 End: 06-26-2024 Bamboo flowsheet Zoey WADE Work Phone: [facility] Start: 06-25-2024 End: 06-26-2024 External Result Encounter Zoey WADE Work Phone: [facility] Unsolicited Start: 05-28-2024 End: 05-28-2024 Bamboo flowsheet Wale [...] Date Procedure Procedure Detail Performing Clinician Start: 06-25-2024 RECURRENT VAGINITIS (HTRX) Zoey WADE Work Phone: Start: 06-25-2024 Urnls dip stick/tabl et rgnt non-auto w/o micrscp Zoey WADE Work Phone: Start: 05-28-2024 Urnls dip stick/tabl et rgnt non-auto w/o micrscp Wale Kenny DO Work Phone: Start: 05-15-2024 ALL CBC WITH AUTO DIFF Wale Kenny DO Work Phone: Start: 04-27-2024 End: 04-27-2024 Urnls dip stick/tablet rgnt non-auto w/o micrscp Wale Kenny DO Work Phone: Plan of Treatment Date Care Activity Detail Author Start: 07-24-2024 End: 07-24-2024 Patient encounter procedure 07/24/2024 2:20 PM EST Routine [facility] [address] [place] [address] KennyWale herbert, DO [address] [place] [address] [facility] Start: 06-25-2024 End: 06-25-2024 Patient encounter procedure [facility] Comment on above: Arrived Start: 06-25-2024 End: 07-26-2024 Alpha fetoprotein, maternal Alpha fetoprotein, maternal Lab Routine 19 weeks gestation of Second trimester Expected: 06/25/2024 (Approximate), Expires: 07/26/2024 [facility] Comment on above: Expected: 06/25/2024 (Approximate), Expires: 07/26/2024 Start: 06-25-2024 End: 06-25-2025 US for US OB ANATOMY SINGLE W US OB CERVICAL LENGTH Imaging Routine Screening, , for anatomic survey Expected: 06/25/2024 (Approximate), Expires: 06/25/2025 [facility] Comment on above: Expected: 06/25/2024 (Approximate), Expires: 06/25/2025 Start: 05-28-2024 End: 05-28-2025 US for US OB ANATOMY SINGLE W US OB CERVICAL LENGTH Imaging Routine Second trimester Screening, , for anatomic survey Expected: 05/28/2024 (Approximate), Expires: 05/28/2025 [facility] Work Phone: Comment on above: Expected: 05/28/2024 (Approximate), Expires: 05/28/2025 Start: 05-28-2024 End: 05-28-2024 Patient encounter procedure 05/28/2024 1:40 PM EST Routine [facility] [address] [place] [id number] Wale Cox DO [address] [place] [address] [facility] Start: 04-27-2024 End: 04-27-2025 ABO/Rh ABO/Rh Lab Routine Missed menses , unspecified gestational age Expected: 04/27/2024 (Approximate), Expires: 04/27/2025 [facility] Comment on above: Expected: 04/27/2024 (Approximate), Expires: 04/27/2025 Start: 04-27-2024 End: 04-27-2025 Blood type and Indirect antibody screen panel - Blood Type and screen Lab Routine Missed menses , unspecified gestational age Expected: 04/27/2024 (Approximate), Expires: 04/27/2025 [facility] Work Phone: Comment on above: Expected: 04/27/2024 (Approximate), Expires: 04/27/2025 Start: 04-27-2024 End: 04-27-2025 Drugs of abuse panel - Urine by Screen method Rapid drug screen, urine Lab Routine , unspecified gestational age Encounter for supervision of normal first in first trimester Expected: 04/27/2024 (Approximate), Expires: 04/27/2025 [facility] Comment on above: Expected: 04/27/2024 (Approximate), Expires: 04/27/2025 Start: 04-27-2024 End: 04-27-2025 US Pelvis transvaginal US OB transvaginal Imaging Routine Missed menses Expected: 04/27/2024 (Approximate), Expires: 04/27/2025 [facility] Comment on above: Expected: 04/27/2024 (Approximate), Expires: 04/27/2025 Start: 03-11-2024 Influenza vaccination Influenza Vacc ine (#1) [facility] Bacteria identified in Urine by Culture Urine culture Microbiology Routine Missed menses Ordered: 04/27/2024 [facility] Comment on above: Ordered: 04/27/2024 CBC W Auto Different ial panel - Blood CBC and differential Lab Routine Missed menses , unspecified gestational age Ordered: 04/27/2024 [facility] Comment on above: Ordered: 04/27/2024 CHLAMYDIA TRACHOMATI S (GENITO/STI) CHLAMYDIA TRACHOMATIS (GENITO/STI) Lab Routine Exposure to STD Ordered: 06/25/2024 [facility] Comment on above: Ordered: 06/25/2024 Cytology Cervical or vaginal smear or scraping study Pap Smear Pathology and Cytology Routine Well woman exam with routine gynecological exam Ordered: 06/25/2024 [facility] Work Phone: Comment on above: Ordered: 06/25/2024 Hemoglobin A1c/Hemoglobin.total in Blood Hemoglobin A1c Lab Routine Missed menses , unspecified gestational age Ordered: 04/27/2024 [facility] Comment on above: Ordered: 04/27/2024 Hepatitis B virus surface Ag [Presence] in Serum or Plasma by Immunoassay Hepatitis B surface antigen Lab Routine Missed menses , unspecified gestational age Ordered: 04/27/2024 [facility] Comment on above: Ordered: 04/27/2024 Hepatitis C virus Ab [Presence] in Serum or Plasma by Immunoassay Hepatitis C antibody Lab Routine Missed menses , unspecified gestational age Ordered: 04/27/2024 [facility] Comment on above: Ordered: 04/27/2024 HIV-1/HIV-2 antigen/antibody combination immunoassay HIV-1 and HIV-2 antibodies Lab Routine Missed menses , unspecified gestational age Ordered: 04/27/2024 [facility] Comment on above: Ordered: 04/27/2024 Neisseria gonorrhoea e DNA [Presence] in Unspecified specimen by CEDRICK with probe detection Neisseria gonorrhea DNA probe, direct Lab Routine Exposure to STD Ordered: 06/25/2024 [facility] Comment on above: Ordered: 06/25/2024 Reagin Ab [Presence] in Serum by RPR RPR Lab Routine Missed menses , unspecified gestational age Ordered: 04/27/2024 [facility] Comment on above: Ordered: 04/27/2024 Rubella antibody, IgG Rubella an tibody, IgG Lab Routine Missed menses , unspecified gestational age Ordered: 04/27/2024 [facility] Comment on above: Ordered: 04/27/2024 SURESWAB(R) ADVANCED VAGINITIS PLUS, TMA SURESWAB(R) ADVANCED VAGINITIS PLUS, TMA Pathology and Cytology Routine Vaginal discharge Ordered: 06/25/2024 [facility] Comment on above: Ordered: 06/25/2024 Payers Date Payer Category Payer [facility] [id number] 2018 Unknown [id number] 1995 Unknown [id number] 1995 Unknown [id number] 1995 Unknown [id number] Social History Date Type Detail Facility Tobacco smoking stat [facility] Tobacco smoking consumption unknown [facility] Start: 02-27-2024 [facility] Start: 1995 Sex assigned at Not on file [facility] Gender identity Not on file [facility] History of Present illness Narrative 06-25-2024 MAURO Quesada - 06/25/2024 2:50 PM MAURO Chinchilla - 06/25/2024 2:50 PM EST Note Date & Type Note Facility 06-25-2024 History of Presen t illness Narrative Reason for Appointment: Patient ID: Alisha Batista is a 28 y.o. female who presents for No chief complaint on file. Patient presents today for Return OB appointment. MEDICATIONS No current outpatient medications ALLERGIES Allergies Allergen Reactions Shrimp (Diagnostic) PROBLEMS Active Ambulatory Problems Diagnosis Date Noted Second trimester 05/28/2024 15 weeks gestation of 05/28/2024 Screening, , for anatomic survey 05/28/2024 headache, antepartum 05/28/2024 Resolved Ambulatory Problems Diagnosis Date Noted No Resolved Ambulatory Problems No Additional Past Medical History HISTORY PAST MEDICAL HISTORY SOCIAL HISTORY History reviewed. No pertinent past medical history. Social History Tobacco Use Smoking status: Not on file Smokeless tobacco: Not on file Substance Use Topics Alcohol use: Not on file Drug use: Not on file FAMILY HISTORY No family history on file. SURGICAL HISTORY History reviewed. No pertinent surgical history. REVIEW OF SYSTEMS Review of Systems: Review of Systems Constitutional: Negative. HENT: Negative. Eyes: Negative. Respiratory: Negative. Cardiovascular: Negative. Gastrointestinal: Negative. Genitourinary: Negative. Musculoskeletal: Negative. Skin: Negative. Neurological: Negative. All other systems reviewed and are negative. Hematological: Negative. Endocrine: Negative. Allergic/Immunologic: Negative. OBJECTIVE Objective: Physical Exam Constitutional: Appearance: Normal appearance. She is normal weight. HENT: Head: Normocephalic. Cardiovascular: Rate and Rhythm: Normal rate. Pulses: Normal pulses. Pulmonary: Effort: Pulmonary effort is normal. Breath sounds: Normal breath sounds. Abdominal: Palpations: Abdomen is soft. Musculoskeletal: General: Normal range of motion. Neurological: General: No focal deficit present. Mental Status: She is alert and oriented to person, place, and time. Psychiatric: Mood and Affect: Mood normal. Behavior: Behavior normal. Thought Content: Thought content normal. Judgment: Judgment normal. Vitals and nursing note reviewed. Vitals: There is no height or weight on file to calculate BMI. BP: 104/70 Patient's last menstrual period was 02/13/2024. ASSESSMENT & PLAN ICD-10-CM 1. 19 weeks gestation of Z3A.19 POCT urinalysis dipstick manually resulted Alpha fetoprotein, maternal Alpha fetoprotein, maternal CANCELED: POCT urinalysis dipstick manually resulted 2. Second trimester Z34.92 POCT urinalysis dipstick manually resulted Alpha fetoprotein, maternal Alpha fetoprotein, maternal CANCELED: POCT urinalysis dipstick manually resulted 3. Screening, , for anatomic survey Z36.89 US OB ANATOMY SINGLE W US OB CERVICAL LENGTH 4. Exposure to STD Z20.2 CHLAMYDIA TRACHOMATIS (GENITO/STI) Neisseria gonorrhea DNA probe, direct 5. Vaginal discharge N89.8 SURESWAB(R) ADVANCED VAGINITIS PLUS, TMA 6. Well woman exam with routine gynecological exam Z01.419 Pap Smear Return OB/Annual Exam: Patient presents today for an annual exam/routine obstetrics appointment. Patient is currently 19w0d . Patient is doing well and states she has no complaints. Pap/cultures was obtained without difficulty [facility]. Orders Placed This Encounter Procedures US OB ANATOMY SINGLE W US OB CERVICAL LENGTH CHLAMYDIA TRACHOMATIS (GENITO/STI) Neisseria gonorrhea DNA probe, direct Alpha fetoprotein, maternal POCT urinalysis dipstick manually resulted Follow Up: Patient is to return to our office in 4 weeks for routine OB appointment Documented by MAURO Quesada on behalf of: MAURO Quesada Reason for Appointment: Patient ID: Alisha Batista is a 28 y.o. female who presents for No chief complaint on file. Patient presents today for Return OB appointment. MEDICATIONS No current outpatient medications ALLERGIES Allergies Allergen Reactions Shrimp (Diagnostic) PROBLEMS Active Ambulatory Problems Diagnosis Date Noted Second trimester 05/28/2024 15 weeks gestation of 05/28/2024 Screening, , for anatomic survey 05/28/2024 headache, antepartum 05/28/2024 Resolved Ambulatory Problems Diagnosis Date Noted No Resolved Ambulatory Problems No Additional Past Medical History HISTORY PAST MEDICAL HISTORY SOCIAL HISTORY History reviewed. No pertinent past medical history. Social History Tobacco Use Smoking status: Not on file Smokeless tobacco: Not on file Substance Use Topics Alcohol use: Not on file Drug use: Not on file FAMILY HISTORY No family history on file. SURGICAL HISTORY History reviewed. No pertinent surgical history. REVIEW OF SYSTEMS Review of Systems: Review of Systems Constitutional: Negative. HENT: Negative. Eyes: Negative. Respiratory: Negative. Cardiovascular: Negative. Gastrointestinal: Negative. Genitourinary: Negative. Musculoskeletal: Negative. Skin: Negative. Neurological: Negative. All other systems reviewed and are negative. Hematological: Negative. Endocrine: Negative. Allergic/Immunologic: Negative. OBJECTIVE Objective: Physical Exam Constitutional: Appearance: Normal appearance. Genitourinary: Right Adnexa: not tender and no mass present. Left Adnexa: not tender and no mass present. No cervical discharge. Breasts: Breasts are soft. Right: Normal. Left: Normal. HENT: Head: Normocephalic. Nose: Nose normal. Mouth/Throat: Mouth: Mucous membranes are moist. Cardiovascular: Rate and Rhythm: Normal rate. Pulmonary: Effort: Pulmonary effort is normal. Abdominal: General: Bowel sounds are normal. Palpations: Abdomen is soft. Musculoskeletal: General: Normal range of motion. Cervical back: Normal range of motion. Neurological: General: No focal deficit present. Mental Status: She is alert. Skin: General: Skin is warm and dry. Psychiatric: Mood and Affect: Mood normal. Vitals and nursing note reviewed. Exam conducted with a cigar machine feeder present. Vitals: There is no height or weight on file to calculate BMI. BP: 104/70 Patient's last menstrual period was 02/13/2024. ASSESSMENT & PLAN ICD-10-CM 1. 19 weeks gestation of Z3A.19 POCT urinalysis dipstick manually resulted Alpha fetoprotein, maternal Alpha fetoprotein, maternal CANCELED: POCT urinalysis dipstick manually resulted 2. Second trimester Z34.92 POCT urinalysis dipstick manually resulted Alpha fetoprotein, maternal Alpha fetoprotein, maternal CANCELED: POCT urinalysis dipstick manually resulted 3. Screening, , for anatomic survey Z36.89 US OB ANATOMY SINGLE W US OB CERVICAL LENGTH 4. Exposure to STD Z20.2 CHLAMYDIA TRACHOMATIS (GENITO/STI) Neisseria gonorrhea DNA probe, direct 5. Vaginal discharge N89.8 SURESWAB(R) ADVANCED VAGINITIS PLUS, TMA 6. Well woman exam with routine gynecological exam Z01.419 Pap Smear Return OB/Annual Exam: Patient presents today for an annual exam/routine obstetrics appointment. Patient is currently 19w0d . Patient is doing well and states she has no complaints. Pap/cultures was obtained without difficulty and patient was given [facility] order to have obtained. Orders Placed This Encounter Procedures US OB ANATOMY SINGLE W US OB CERVICAL LENGTH CHLAMYDIA TRACHOMATIS (GENITO/STI) Neisseria gonorrhea DNA probe, direct Alpha fetoprotein, maternal POCT urinalysis dipstick manually resulted Follow Up: Patient is to return to our office in 4 weeks for routine OB appointment Documented by MAURO Quesada on behalf of: MAURO Quesada documented in this encounter [facility] History of Present illness Narrative 05-28-2024 Neetu [...] nursing note reviewed. Exam conducted with a cigar machine feeder present. Vitals: There is no height or [...] or undercooked meat, and stay away from [facility]. Patient has been consulted regarding any [...] or undercooked meat, and stay away from [facility]. Patient has also been advised to [...] survey headache, antepartum documented in this encounter [facility] Evaluation note Note Date & Type Note Facility Evaluation note Diagnosis 19 weeks gestation of Second trimester state, incidental Screening, , for anatomic survey Encounter for anatomic survey Exposure to STD Vaginal discharge Leukorrhea, not specified as infective Well woman exam with routine gynecological exam Routine gynecological examination documented in this encounter [facility] Summary Purpose Family History No Family History Records FoundNo Family History Records Found Advance Directives No Advanced Directives Records FoundNo Advanced Directives Records Found Additional Source Comments INFORMATION SOURCE (unrecogn ized section and content) DATE CREATED AUTHOR 02/18/2021 [facility] DATE CREATED AUTHOR AUTHOR'S ORGANIZ ATION 06/27/2024 [facility] EPIC Reason for Visit (unrecogniz ed section and content) Reason Comments Initial Visit Reason Comments Routine Visit Care Teams (unrecognized sec tion and content) Painter Assistant Relationship Specialty Start Date End Date Steffen Guillaume MD [address] [address] PCP - General Family Medicine 11/16/22 Painter Assistant Relationship Specialty Start Date End Date Steffen Guillaume MD [address] [address] PCP - General Family Medicine 11/16/22 Painter Assistant Relationship Specialty Start Date End Date Steffen Guillaume MD [address] [address] PCP - General Family Medicine 11/16/22 Painter Assistant Relationship Specialty Start Date End Date Steffen Guillaume MD [address] [id number] PCP - General Family Medicine 11/16/22 Painter Assistant Relationship Specialty Start Date End Date Steffen Guillaume MD [address] [address] PCP - General Family Medicine 11/16/22 FOR [...] BE BASED ON THE PRIMARY CLINICAL RECORDS. [email or web address] provides no warranty or guarantee of the accuracy or completeness of information in this document.
== END 2024-07-02 12:56 | disposition home or self-care (01) ==
LOC: US 12:55
PROVIDERS: PCP Family Medicine; Visit Provider Obstetrics & Gynecology
DX: O44.22 Partial placenta previa NOS or without hemorrhage, second trimester (principal); Z36.89 Encounter for other specified antenatal screening; Z3A.20 20 weeks gestation of pregnancy
CPT/HCPCS: 76805; 76817

== ENCOUNTER 2024-07-13 11:40 | Outpatient (OUT) | payer BC, SELFPAY ==
--- OUTSIDE RECORDS SUMMARY | 2024-07-13 11:43 | XMS_ITS | CCD ---
Author Organization [facility] CliniSyor Care Team Providers Care Lockstitch Waistline Joiner Name Role Phone Aundrea LINDA, Steffen Jackson Primary Care Provider WALE COX Attending Unavailable ZOEY MCNEILL Attending Unavailable Allergies Allergy Classification Reported Allergen(s) Allergy Type Date of Onset Reaction(s) Facility (10 sources) Shrimp product Propensity to adverse reactions [facility] Problems Problem Classification Problem Date Documented Date Episodic/Chronic Immunizations and screening for infectious disease (2 sources) Exposure to sexually transmissible disorder; Translations: [Contact with and (suspected) exposure to infections with a predominantly sexual mode of transmission] 06-25-2024 Episodic Menstrual disorders (1 source) Missed period; Translations: [Irregular menstruation, unspecified] 04-27-2024 Chronic Other complications of (10 sources) Headache; Translations: [Other specified related conditions, unspecified trimester] Onset: 05-28-2024 05-28-2024 Episodic Other female genital disorders (2 sources) Vaginal discharge; Translations: [Other specified noninflammatory disorders of vagina] 06-25-2024 Episodic Other and delivery including normal (14 sources) ; Translations: [Encounter for supervision of normal , unspecified, unspecified trimester] Onset: 05-28-2024 04-27-2024 Episodic Other screening for suspected conditions (not mental disorders or infectious disease) (12 sources) Patient encounter status; Translations: [Encounter for other specified screening] Onset: 05-28-2024 05-28-2024 Episodic Residual codes; unclassified (10 sources) Gestation period, 15 weeks; Translations: [15 weeks gestation of ] Onset: 05-28-2024 05-28-2024 Episodic Residual codes; unclassified (2 sources) Gestation period, 19 weeks; Translations: [19 weeks gestation of ] 06-25-2024 Episodic Results Test Name Value Interpretation Reference Range Facility IGP,APTIMA HPV,AGE GDLNon AGE GDLN ACOG TESTING Note . [facility] Comment on above: TESTS RESULT FLAG UN ITS REF RANGE LAB Clinician Provided Cytology Information Source.............Cervix Other.............. No. of containers..01 ThinPrep Vial Age Algo ACOG Bettye... FLAG LEGEND: L-Low Normal,H-High Normal,LL-Alert Low,HH-Alert High <-Panic Low,>-Panic High,A-Abnormal,AA-Critical Abnormal Performed at: 01 =G [address] [address] Grecia Wright MD, IGP, RFX APTIMA HPV ASCU Note . [facility] Comment on above: TESTS RESULT FLAG U NITS REF RANGE LAB DIAGNOSIS: 02 NEGATIVE FOR INTRAEPITHELIAL LESION OR MALIGNANCY. Specimen adequacy: 02 Satisfactory for evaluation. No endocervical component is identified. An endocervical component is not commonly seen in the patient. Performed by: Claribel Minor, Airport Screener (ASC) . 02 Note: Note 02 The Pap smear is a screening test designed to aid in the detection of premalignant and malignant conditions of the uterine cervix. It is not a diagnostic procedure and should not be used as the sole means of detecting cervical cancer. Both false-positive and false-negative reports do occur. Test Methodology: Note 02 This liquid based ThinPrep(R) pap test was screened with the use of an image guided system. . 02 The HPV DNA reflex criteria were not met with this specimen result therefore, no HPV testing was performed. FLAG LEGEND: L-Low Normal,H-High Normal,LL-Alert Low,HH-Alert High <-Panic Low,>-Panic High,A-Abnormal,AA-Critical Abnormal Performed at: [address] [address] Grecia Wright MD, Performed at: =[address] [id number] Refurbish Technician: Grecia Wright MD, Phone: [phone] Performed at: [address] [id number] Refurbish Technician: Grecia Wright MD, Phone: [phone] SPATULA-ALONE CERVIX [facility] Healthcar e RECURRENT VAGINITIS (HTRX)on 06-26-2024 ATOPOBIUM VAGINAE 15.84 Abnormal [facility] ATOPOBIUM VAGINAE Detected Abnormal [facility] BVAB 2,3 (BACTERIAL VAGINOSIS ASSOCIATED BACTERIA 2, 3); MOBILUNCUS SPP 24.558 Abnormal [facility] BVAB 2,3 (BACTERIAL VAGINOSIS ASSOCIATED BACTERIA 2, 3); MOBILUNCUS SPP Detected Abnormal [facility] SOHAM ALBICANS, PARAPSILOSIS, TROPICALIS 0 [facility] SOHAM ALBICANS, PARAPSILOSIS, TROPICALIS Not detected [facility] SOHAM GLABRATA 0 [facility] Hea lthcare SOHAM GLABRATA Not detected [facility] H ealthcare SOHAM KRUSEI 0 [facility] Healt hcare SOHAM KRUSEI Not detected [facility] Hea lthcare CHLAMYDIA TRACHOMATIS 0 [facility] CHLAMYDIA TRACHOMATIS Not detected [facility] GARDNERELLA VAGINALIS 21.394 Abnormal [facility] GARDNERELLA VAGINALIS Detected Abnormal [facility] Interpretation and review of laboratory results Abnormal [facility] MEGASPHAERA (TYPES 1, 2) 0 [facility] MEGASPHAERA (TYPES 1, 2) Not detected [facility] MYCOPLASMA GENITALIUM 0 [facility] MYCOPLASMA GENITALIUM Not detected [facility] NEISSERIA GONORRHOEAE 0 [facility] NEISSERIA GONORRHOEAE Not detected [facility] TET B, TET M 18.181 Abnormal [facility] Healthc are TET B, TET M Detected Abnormal [facility] TRICHOMONAS VAGINALIS 0 [facility] TRICHOMONAS VAGINALIS Not detected [facility] Urinalysis macro (dipstick) panel (U)on 06-25-2024 Bilirubin, UA Negative Negative - 4(70) +++ mg/dL [facility] Blood, UA Negative Negative - 50 Calderon/mcL [facility] Clarity, UA Clear [facility] re Color, UA Yellow [facility] Healthcar e Glucose, UA Negative Negative - 1999(110) ++++ mg/dL [facility] Interpretation and review of laboratory results Abnormal [facility] Ketones, UA Negative Negative - 160(16) ++++ mg/dL [facility] Leukocytes, UA Trace Negative - 500+++ Eyal/mcL [facility] Nitrite, UA Negative Negative - Positive [facility] pH, UA 6 5 - 9 [facility] Healthcar e Protein, UA Negative Negative - 1999(20) ++++ mg/dL [facility] Spec Grav, UA 1.01 1 - 1.03 [facility] Urobilinogen, UA 0.2 0.2 - 12 mg/dL [facility] Urinalysis macro (dipstick) panel (U)on 05-28-2024 Bilirubin, UA Negative Negative - 4(70) +++ mg/dL [facility] Blood, UA Negative Negative - 50 Calderon/mcL [facility] Clarity, UA Clear [facility] re Color, UA Yellow [facility] Glucose, UA Negative Negative - 1999(110) ++++ mg/dL [facility] Interpretation and review of laboratory results Normal [facility] Ketones, UA Negative Negative - 160(16) ++++ mg/dL [facility] Leukocytes, UA Negative Negative - 500+++ Eyal/mcL [facility] Nitrite, UA Negative Negative - Positive [facility] pH, UA 7 5 - 9 [facility] e Protein, UA Negative Negative - 1999(20) ++++ mg/dL [facility] Spec Grav, UA 1.015 1 - 1.03 [facility] Urobilinogen, UA 0.2 0.2 - 12 mg/dL [facility] Healthcar e ALL CBC WITH AUTO DIFFon BASOPHILS ABSOLUTE AUTO 0 [facility] Basophils/100 WBC (Bld) 0.2 % 0.2 - 2.0 % [facility] Eosinophils/100 WBC (Bld) 1.1 % 0.9 - 7.0 % [facility] Erythrocyte distribution width (RBC) [Ratio] 12.2 % 11.0 - 15.0 % [facility] Hematocrit (Bld) [Volume fraction] 36.9 % 36.0 - 48.0 % [facility] e Hemoglobin (Bld) [Mass/Vol] 12.8 g/dL 12.0 - 16.0 g/dL [facility] IMMATURE GRANULOCYTES ABS AUTO 0.03 [facility] Immature granulocytes/100 WBC (Bld) 0.3 % 0.0 - 0.5 % [facility] Interpretation and review of laboratory results Abnormal [facility] LYMPHOCYTES ABSOLUTE AUTO 1.8 [facility] Lymphocytes/100 WBC (Bld) 19.8 % Low 20.5 - 60.0 % [facility] MCH (RBC) [Entitic mass] 29.9 pg 26.7 - 34.0 pg [facility] MCHC (RBC) [Mass/Vol] 34.7 g/dL 29.9 - 35.2 g/dL [facility] MCV (RBC) [Entitic vol] 86.2 fL 81.0 - 99.0 fL [facility] MONOCYTES ABSOLUTE AUTO 0.5 [facility] Monocytes/100 WBC (Bld) 5.5 % 1.7 - 12.0 % [facility] NEUTROPHILS ABSOLUTE AUTO 6.5 [facility] Neutrophils/100 WBC (Bld) 73.1 % 43.0 - 75.0 % [facility] Platelet mean volume (Bld) [Entitic vol] 9.4 fL Low 9.5 - 13.5 fL [facility] are TBH EO # 0.1 [facility] TB PLT 309 [facility] TB RBC 4.28 [facility] e TB WBC 9 [facility] e [facility] e HCG ( test) Ql (U)o n 04-27-2024 Interpretation and review of laboratory results Abnormal [facility] Preg Test, Ur Positive [facility] Healthcar e Urinalysis macro (dipstick) panel (U)on 04-27-2024 Bilirubin, UA Negative Negative - 4(70) +++ mg/dL [facility] Blood, UA Negative Negative - 50 Calderon/mcL [facility] Clarity, UA Clear [facility] re Color, UA Yellow [facility] e Glucose, UA Negative Negative - 1999(110) ++++ mg/dL [facility] Interpretation and review of laboratory results Abnormal [facility] Ketones, UA Negative Negative - 160(16) ++++ mg/dL [facility] Leukocytes, UA Trace Negative - 500+++ Eyal/mcL [facility] Nitrite, UA Negative Negative - Positive [facility] pH, UA 7.5 5 - 9 [facility] e Protein, UA Negative Negative - 1999(20) ++++ mg/dL [facility] Spec Grav, UA 1.02 1 - 1.03 [facility] Urobilinogen, UA 0.2 0.2 - 12 mg/dL [facility] Healthcar e Registrationon 02-17-2021 Registration [id number]# 1.00CD:127 Normal [facility] Consent for Treatmenton Consent for Treatment [id number]# 1.00CD:127 Normal [facility] Vital Signs Date Time Vital Sign Value Performing Clinician Faci lity 06-25-2024 14:52-0500 Body weight 61.15 kg Zoey WADE Work Phone: [facility] 06-25-2024 14:52-0500 Diastolic blood pressure 70 mm[Hg] Zoey WADE Work Phone: [facility] 06-25-2024 14:52-0500 Systolic blood pressure 104 mm[Hg] Zoey WADE Work Phone: [facility] 05-28-2024 14:27-0500 Body weight 59.88 kg Wale Kenny DO Work Phone: [facility] 05-28-2024 14:27-0500 Diastolic blood pressure 62 mm[Hg] Wale Kenny DO Work Phone: [facility] 05-28-2024 14:27-0500 Systolic blood pressure 100 mm[Hg] Wale Kenny DO Work Phone: [facility] 04-27-2024 10:48-0400 Body weight 57.61 kg [facility] Nurse [facility] 04-27-2024 10:48-0400 Diastolic blood pressure 68 mm[Hg] [facility] Nurse [facility] 04-27-2024 10:48-0400 Systolic blood pressure 100 mm[Hg] [facility] Nurse [facility] Encounters Encounter Date Encounter Type Care Provider Facility Start: 06-25-2024 End: 06-25-2024 Patient encounter procedure Zoey WADE Work Phone: [facility] Start: 06-25-2024 End: 06-25-2024 flow sheet Zoey WADE Work Phone: [facility] Comment on above: 19 weeks gestation o f ; Second trimester ; Screening, , for anatomic survey; Exposure to STD; Vaginal discharge; Well woman exam with routine gynecological exam Start: 06-25-2024 End: 06-25-2024 ambulatory ZOEY MCNEILL Not Available Start: 06-25-2024 End: 06-25-2024 Bamboo flowsheet Zoey WADE Work Phone: [facility] Start: 06-25-2024 End: 07-02-2024 Bamboo flowsheet Zoey WADE Work Phone: [facility] Start: 06-25-2024 End: 07-02-2024 Clinisync Result Encounter Zoey WADE Work Phone: [facility] External Department Unsolicited Start: 06-25-2024 End: 06-26-2024 External Result Encounter [...] w/o micrscp Zoey WADE Work Phone: Start: 06-25-2024 IGP,APTIMA HPV,AGE GDLN Generic External Data Provider Start: 05-28-2024 Urnls dip stick/tabl et rgnt [...] Routine [facility] [address] [place] [id number] Wale Cox, DO [address] [place] [address] [facility] Start: 06-25-2024 End: 06-25-2024 Patient encounter procedure [facility] Comment on above: Arrived Start: 06-25-2024 End: 07-26-2024 Alpha fetoprotein, maternal Alpha fetoprotein, maternal Lab Routine 19 weeks gestation of Second trimester Expected: 06/25/2024 (Approximate), Expires: 07/26/2024 [facility] Healthcare Comment on above: Expected: 06/25/2024 (Approximate), Expires: 07/26/2024 Start: 06-25-2024 End: 06-25-2025 US for US OB ANATOMY SINGLE W US OB CERVICAL LENGTH Imaging Routine Screening, , for anatomic survey Expected: 06/25/2024 (Approximate), Expires: 06/25/2025 [facility] Healthcare Comment on above: Expected: 06/25/2024 (Approximate), Expires: 06/25/2025 Start: 05-28-2024 End: 05-28-2025 US for US OB ANATOMY SINGLE W US OB CERVICAL LENGTH Imaging Routine Second trimester Screening, , for anatomic survey Expected: 05/28/2024 (Approximate), Expires: 05/28/2025 [facility] Work Phone: Comment on above: Expected: 05/28/2024 (Approximate), Expires: 05/28/2025 Start: 05-28-2024 End: 05-28-2024 Patient encounter procedure 05/28/2024 1:40 PM EST Routine [facility] [address] [place] [phone] Wale Cox, DO [address] [place] [address] [facility] Start: 04-27-2024 End: 04-27-2025 ABO/Rh ABO/Rh Lab Routine Missed menses , unspecified gestational age Expected: 04/27/2024 (Approximate), Expires: 04/27/2025 [facility] Comment on above: Expected: 04/27/2024 (Approximate), Expires: 04/27/2025 Start: 04-27-2024 End: 04-27-2025 Blood type and Indirect antibody screen panel - Blood Type and screen Lab Routine Missed menses , unspecified gestational age Expected: 04/27/2024 (Approximate), Expires: 04/27/2025 [facility] Work Phone: Comment on above: Expected: 04/27/2024 (Approximate), Expires: 04/27/2025 Start: 04-27-2024 End: 04-27-2025 Drugs of abuse panel - Urine by Screen method Rapid drug screen, urine Lab Routine , unspecified gestational age Encounter for supervision of normal first in first trimester Expected: 04/27/2024 (Approximate), Expires: 04/27/2025 [facility] Comment on above: Expected: 04/27/2024 (Approximate), Expires: 04/27/2025 Start: 04-27-2024 End: 04-27-2025 US Pelvis transvaginal US OB transvaginal Imaging Routine Missed menses Expected: 04/27/2024 (Approximate), Expires: 04/27/2025 [facility] Comment on above: Expected: 04/27/2024 (Approximate), Expires: 04/27/2025 Start: 03-11-2024 Influenza vaccination Influenza Vacc ine (#1) [facility] Bacteria identified in Urine by Culture Urine culture Microbiology Routine Missed menses Ordered: 04/27/2024 [facility] Comment on above: Ordered: 04/27/2024 CBC W Auto Different ial panel - Blood CBC and differential Lab Routine Missed menses , unspecified gestational age Ordered: 04/27/2024 [facility] Comment on above: Ordered: 04/27/2024 CHLAMYDIA TRACHOMATI S (GENITO/STI) CHLAMYDIA TRACHOMATIS (GENITO/STI) Lab Routine Exposure to STD Ordered: 06/25/2024 [facility] Comment on above: Ordered: 06/25/2024 Cytology Cervical or vaginal smear or scraping study Pap Smear Pathology and Cytology Routine Well woman exam with routine gynecological exam Ordered: 06/25/2024 [facility] Work Phone: Comment on above: Ordered: 06/25/2024 Hemoglobin A1c/Hemoglobin.total in Blood Hemoglobin A1c Lab Routine Missed menses , unspecified gestational age Ordered: 04/27/2024 [facility] Comment on above: Ordered: 04/27/2024 Hepatitis B virus surface Ag [Presence] in Serum or Plasma by Immunoassay Hepatitis B surface antigen Lab Routine Missed menses , unspecified gestational age Ordered: 04/27/2024 [facility] Comment on above: Ordered: 04/27/2024 Hepatitis C virus Ab [Presence] in Serum or Plasma by Immunoassay Hepatitis C antibody Lab Routine Missed menses , unspecified gestational age Ordered: 04/27/2024 [facility] Comment on above: Ordered: 04/27/2024 HIV-1/HIV-2 antigen/antibody combination immunoassay HIV-1 and HIV-2 antibodies Lab Routine Missed menses , unspecified gestational age Ordered: 04/27/2024 [facility] Comment on above: Ordered: 04/27/2024 Neisseria gonorrhoea e DNA [Presence] in Unspecified specimen by CEDRICK with probe detection Neisseria gonorrhea DNA probe, direct Lab Routine Exposure to STD Ordered: 06/25/2024 [facility] Comment on above: Ordered: 06/25/2024 Reagin Ab [Presence] in Serum by RPR RPR Lab Routine Missed menses , unspecified gestational age Ordered: 04/27/2024 [facility] Comment on above: Ordered: 04/27/2024 Rubella antibody, IgG Rubella an tibody, IgG Lab Routine Missed menses , unspecified gestational age Ordered: 04/27/2024 [facility] Comment on above: Ordered: 04/27/2024 SURESWAB(R) ADVANCED VAGINITIS PLUS, TMA SURESWAB(R) ADVANCED VAGINITIS PLUS, TMA Pathology and Cytology Routine Vaginal discharge Ordered: 06/25/2024 [facility] Comment on above: Ordered: 06/25/2024 Payers Date Payer Category Payer [facility] [id number] 2018 Unknown [id number] 1995 Unknown [id number] 1995 Unknown [id number] 1995 Unknown [id number] Social History Date Type Detail Facility Tobacco smoking stat [facility] Tobacco smoking consumption unknown [facility] Healthcare Start: 02-27-2024 [facility] Start: 1995 Sex assigned at Not on file [facility] Gender identity Not on file [facility] History of Present illness Narrative 06-25-2024 [...] obtained without difficulty and patient was given msAFP order to have obtained. Orders Placed This [...] nursing note reviewed. Exam conducted with a actuarial science professor present. Vitals: There is no height or [...] without difficulty and patient was given [facility] order to have obtained. Orders Placed This [...] History of Present illness Narrative 05-28-2024 Neetu SinghDEE - 05/28/2024 1:40 PM EST Note Date [...] nursing note reviewed. Exam conducted with a actuarial science professor present. Vitals: There is no height or [...] or undercooked meat, and stay away from [facility]. Patient has been consulted regarding any further [...] or undercooked meat, and stay away from [facility]. Patient has also been advised to not [...] and content) DATE CREATED AUTHOR 02/18/2021 [employer] [facility] DATE CREATED AUTHOR AUTHOR'S ORGANIZ ATION 06/27/2024 [facility] dical Specialists EPIC Reason for Visit (unrecogniz ed section and content) Reason Comments Initial Visit Reason Comments Routine Visit Care Teams (unrecognized sec tion and content) Lockstitch Waistline Joiner Relationship Specialty Start Date End Date Steffen Guillaume MD [address] [facility] [address] [place] [address] PCP - General Family Medicine 11/16/22 Lockstitch Waistline Joiner Relationship Specialty Start Date End Date Stfefen Guillaume MD [address] [facility] [address] [place] [address] PCP - General Family Medicine 11/16/22 Lockstitch Waistline Joiner Relationship Specialty Start Date End Date Steffen Guillaume MD [address] [facility] [address] [place] [address] PCP - General Family Medicine 11/16/22 Lockstitch Waistline Joiner Relationship Specialty Start Date End Date Steffen Guillaume MD [address] [facility] [address] [place] [address] PCP - General Family Medicine 11/16/22 Lockstitch Waistline Joiner Relationship Specialty Start Date End Date Steffen Guillaume MD [address] [facility] [address] [place] [address] PCP - General Family Medicine 11/16/22 FOR [...] BE BASED ON THE PRIMARY CLINICAL RECORDS. [facility]. provides no warranty or guarantee of the accuracy or completeness of information in this document.
[2024-07-16 18:09] LABS: AFP Value 76.2 ng/mL (.); Gest. Age on Collection Date 21.6 weeks (.); Insulin Dep Diabetes No (.); Maternal Age At EDD 28.9 yr (.); OSBR Risk 1 IN 10000 (.); Results Report (.)
== END 2024-07-13 11:41 | disposition home or self-care (01) ==
LOC: LAB 11:40
PROVIDERS: PCP Family Medicine; Visit Provider Physician Assistant
DX: Z34.92 Encounter for supervision of normal pregnancy, unspecified, second trimester (principal); Z3A.19 19 weeks gestation of pregnancy
CPT/HCPCS: 36415; 82105

== ENCOUNTER 2024-08-04 11:02 | Outpatient (OUT) | payer BC, SELFPAY ==
--- OUTSIDE RECORDS SUMMARY | 2024-08-04 11:05 | XMS_ITS | CCD ---
Author Organization [facility] [employer] Care Team Providers Care Hide Or Skin Buffer Name Role Phone Steffen Guillaume MD Primary Care Provider WALE COX Attending Unavailable ZOEY MCNEILL Attending Unavailable WALE COX Attending Unavailable Allergies Allergy Classification Reported Allergen(s) Allergy Type Date of Onset Reaction(s) Facility (14 sources) Shrimp product Propensity to adverse reactions [facility] Medications Current Medications Medication Drug Class(es) Dates Sig (Normalized) Sig (Original) docusate sodium 100 mg oral capsule (2 sources) Start: 07-24-2024 End: 08-03-2024 take 1 capsule by mouth twice daily as needed for constipation docusate sodium (Colace) 100 MG capsule Indications: Constipation, unspecified constipation type Take 1 capsule (100 mg) by mouth 2 (two) times a day as needed for constipation for up to 10 days 30 capsule 5 07/24/2024 08/03/2024 Active Problems Problem Classification Problem Date Documented Da te Episodic/Chronic Hemorrhage during ; abruptio placenta; placenta previa (4 sources) Placenta previa marginalis; Translations: [Partial placenta previa NOS or without hemorrhage, unspecified trimester] Onset: 07-05-2024 07-05-2024 Episodic Immunizations and screening for infectious disease (2 sources) Exposure to sexually transmissible disorder; Translations: [Contact with and (suspected) exposure to infections with a predominantly sexual mode of transmission] 06-25-2024 Episodic Menstrual disorders (1 source) Missed period; Translations: [Irregular menstruation, unspecified] 04-27-2024 Chronic Other complications of (14 sources) Headache; Translations: [Other specified related conditions, unspecified trimester] Onset: 05-28-2024 05-28-2024 Episodic Other female genital disorders (2 sources) Vaginal discharge; Translations: [Other specified noninflammatory disorders of vagina] 06-25-2024 Episodic Other gastrointestinal disorders (2 sources) Constipation; Translations: [Constipation, unspecified] 07-24-2024 Episodic Other and delivery including normal (20 sources) ; Translations: [Encounter for supervision of normal , unspecified, unspecified trimester] Onset: 05-28-2024 04-27-2024 Episodic Other screening for suspected conditions (not mental disorders or infectious disease) (18 sources) Patient encounter status; Translations: [Encounter for other specified screening] Onset: 05-28-2024 05-28-2024 Episodic Residual codes; unclassified (14 sources) Gestation period, 15 weeks; Translations: [15 weeks gestation of ] Onset: 05-28-2024 05-28-2024 Episodic Residual codes; unclassified (2 sources) Gestation period, 19 weeks; Translations: [19 weeks gestation of ] 06-25-2024 Episodic Residual codes; unclassified (2 sources) Gestation period, 23 weeks; Translations: [23 weeks gestation of ] 07-24-2024 Episodic Results Test Name Value Interpretation Reference Range Facility US OB LIMITED 1+ FETUSESon 0 08-02-2024 US OB LIMITED 1+ FETUSES TITLE OF EXAM: OB Ultrasound: REASON FOR EXAM: Marginal placenta previa. COMPARISON: None TECHNIQUE: Grayscale and M-mode Doppler imaging is performed. FINDINGS: Measurements: heart rate: 141 bpm Cervix Length: 4.7 cm HILLARY: 11/19/2024 Limited for: Placenta Presentation: Breech Lie: Longitudinal Placental Location: Anterior Placenta Tip to internal OS: 5.2 cm Heart Rate: 141 bpm Somatic Motion: Yes Cervical Length: 4.7 cm Closed IMPRESSION: Limited evaluation showing a closed cervix with placenta situated 5.2 cm distant from the cervical os. Dictated and transcribed 08/02/24/dpd This report has been electronically signed and approved by the interpreting radiologist. Normal Not Available Comment on above: Order Comment: Estim ated Date of Delivery: 11/19/24 Gestational Age as of 07/05/2024: 20w3d Urinalysis macro (dipstick) panel (U)on 07-24-2024 Bilirubin, UA Negative Negative - 4(70) +++ mg/dL [facility] Blood, UA Negative Negative - 50 Calderon/mcL [facility] Clarity, UA Clear [facility] re Color, UA Yellow [facility] Glucose, UA Negative Negative - 1999(110) ++++ mg/dL [facility] Interpretation and review of laboratory results Abnormal [facility] Ketones, UA Negative Negative - 160(16) ++++ mg/dL [facility] Leukocytes, UA Trace Negative - 500+++ Eyal/mcL [facility] Nitrite, UA Negative Negative - Positive [facility] pH, UA 7 5 - 9 [facility] Protein, UA Negative Negative - 1999(20) ++++ mg/dL [facility] Spec Grav, UA 1.02 1 - 1.03 [facility] Urobilinogen, UA 0.2 0.2 - 12 mg/dL [facility] AFP, SERUM, OPEN SPINA BIFID Aon 07-16-2024 AFP MOM 1.03 . [facility] AFP VALUE 76.2 ng/mL . [facility] COMMENT: Comment . [facility] Comment on above: Winifred Burch , Ph.D., [facility] Director References: Available Upon Request. Multiples Of Median Cutoffs For AFP Elevations Moffett 2.5 Black 2.8 IDD 2.0 Twins 4.5 Abbreviation Definitions IDD - Insulin Dep Diabetes OSBR - Open Spina Bifida Risk For further inquiries contact [employer] [facility] at [phone]. This test was developed and its performance characteristics determined by [employer]. It has not been cleared or approved by the Food and Drug Administration. Performed at: [facility] [address] [place], [place] [id number] Professor Of Engineering: Babita Carranza [facility], Phone: [phone] GEST. AGE ON COLLECTION DATE 21.6 . weeks [facility] GESTAT. AGE BASED ON LMP . [facility] Comment on above: Recalculations are n ot recommended when gestational dating by LMP and ultrasound are within 10 days. INSULIN DEP DIABETES No . [facility] INTERPRETATION Comment . [facility] Healt [facility]ce Comment on above: Interpretation: Scre en Negative This result is screen negative for OSB. The AFP MoM calculated is based on the gestational age provided. MS-AFP can identify up to 80% of open neural tube defects. Closed neural tube defects and some open defects may not be detected by this test. This test does not screen for Down Syndrome or Trisomy 18. If screening for Down Syndrome or Trisomy 18 is desired, contact [facility] to discuss available options. The [employer] recommends amniocentesis be offered to women age 35 and older. [age]ARY [age] [facility] MULTIPLE GESTATION No . [facility] [place] [address] [place] [id number] . [facility]alt [facility] RACE Other . [facility] Lumics RESULTS Report . [facility] SheZoom e TEST RESULTS: Negative . [facility] [employer] WEIGHT 135 . lbs [facility] [employer] [facility] N N LMP [id number] 0 19 N 1 Y 135 N N N N N Other Race CL[facility] [employer] e IGP,APTIMA HPV,AGE GDLNon AGE GDLN ACOG TESTING Note . [facility] Comment on above: TESTS RESULT FLAG UN ITS REF RANGE LAB Clinician Provided Cytology Information Source.............Cervix Other.............. No. of containers..01 ThinPrep Vial Age Algo ACOG Bettye... -08 08 FLAG LEGEND: L-Low Normal,H-High Normal,LL-Alert Low,HH-Alert High <-Panic Low,>-Panic High,A-Abnormal,AA-Critical Abnormal Performed at: 01 =G [address] [place] [address] Grecia Wright MD, IGP, RFX APTIMA HPV ASCU Note . [facility] Comment on above: TESTS RESULT FLAG UN ITS REF RANGE LAB DIAGNOSIS: 02 NEGATIVE FOR INTRAEPITHELIAL LESION OR MALIGNANCY. Specimen adequacy: 02 Satisfactory for evaluation. No endocervical component is identified. An endocervical component is not commonly seen in the patient. Performed by: 02 Cinthya Minor, Unit Coordinator ([facility]) . 02 Note: Note 02 The Pap [...] <-Panic Low,>-Panic High,A-Abnormal,AA-Critical Abnormal Performed at: 02 [address] [facility] [address] [place] [address] Grecia Wright MD, Performed at: =G - [facility] [address], [place] [id number] Professor Of Engineering: Grecia Wright MD, Phone: [phone] Performed at: [address] [id number] Professor Of Engineering: Grecia Wright MD, Phone: [phone] SPATULA-ALONE CERVIX CLIN[facility] RECURRENT VAGINITIS (HTRX)on 06-26-2024 ATOPOBIUM VAGINAE 15.84 Abnormal [facility] ATOPOBIUM VAGINAE Detected Abnormal [facility] althcare BVAB 2,3 (BACTERIAL VAGINOSIS ASSOCIATED BACTERIA 2, 3); MOBILUNCUS SPP 24.558 Abnormal [facility] Healthcare BVAB 2,3 (BACTERIAL VAGINOSIS ASSOCIATED BACTERIA 2, 3); MOBILUNCUS SPP Detected Abnormal [facility] Healthcare SOHAM ALBICANS, PARAPSILOSIS, TROPICALIS 0 [facility] Healthcare SOHAM ALBICANS, PARAPSILOSIS, TROPICALIS Not detected [facility] SOHAM GLABRATA 0 [facility] SOHAM GLABRATA Not detected [facility] KRUSEI Not detected [facility] CHLAMYDIA TRACHOMATIS 0 [facility] Healthcare CHLAMYDIA TRACHOMATIS Not detected [facility] GARDNERELLA VAGINALIS 21.394 Abnormal [facility] GARDNERELLA VAGINALIS Detected Abnormal [facility] Healthcare Interpretation and review of laboratory results Abnormal [facility] Healthcare MEGASPHAERA (TYPES 1, 2) 0 [facility] Healthcare MEGASPHAERA (TYPES 1, 2) Not detected [facility] MYCOPLASMA GENITALIUM 0 [facility] MYCOPLASMA GENITALIUM Not detected [facility] NEISSERIA GONORRHOEAE 0 [facility] Healthcare NEISSERIA GONORRHOEAE Not detected [facility] Healthcare TET B, TET M 18.181 Abnormal [facility] Healthc are TET B, TET M Detected Abnormal [facility] Healthc are TRICHOMONAS VAGINALIS 0 [facility] TRICHOMONAS VAGINALIS Not detected [facility] Urinalysis macro (dipstick) panel (U)on 06-25-2024 Bilirubin, UA Negative Negative - 4(70) +++ mg/dL [facility] Blood, UA Negative Negative - 50 Calderon[facility], UA Clear [facility] re Color, UA Yellow [facility] Glucose, UA Negative Negative - 2000(110) ++++ mg/dL [facility] Interpretation and review of laboratory results Abnormal [facility] Ketones, UA Negative Negative - 160(16) ++++ mg/dL [facility] Leukocytes, UA Trace Negative - 500+++ Eyal/mcL [facility] Nitrite, UA Negative Negative - Positive [facility] pH, UA 6 5 - 9 [facility] Protein, UA Negative Negative - 1999(20) ++++ mg/dL [facility] Spec Grav, UA 1.01 1 - 1.03 [facility] Urobilinogen, UA 0.2 0.2 - 12 mg/dL [facility] Urinalysis macro (dipstick) panel (U)on 05-28-2024 Bilirubin, UA Negative Negative - 4(70) +++ mg/dL [facility] Blood, UA Negative Negative - 50 Calderon/mcL [facility] Clarity, UA Clear [facility] re Color, UA [facility] Glucose, UA Negative Negative - 1999(110) ++++ mg/dL [facility] Interpretation and review of laboratory results Normal [facility] Ketones, UA Negative Negative - 160(16) ++++ mg/dL [facility] Leukocytes, UA Negative Negative - 500+++ Eyal/mcL [facility] Nitrite, UA Negative Negative - Positive [facility] pH, UA 7 5 - 9 [facility] Protein, UA Negative Negative - 1999(20) ++++ mg/dL [facility] Spec Grav, UA 1.015 1 - 1.03 [facility] Urobilinogen, UA 0.2 0.2 - 12 mg/dL [facility] ALL CBC WITH AUTO DIFFon BASOPHILS ABSOLUTE AUTO 0 [facility] Basophils/100 WBC (Bld) 0.2 % 0.2 - 2.0 % [facility] Eosinophils/100 WBC (Bld) 1.1 % 0.9 - 7.0 % [facility] Erythrocyte distribution width (RBC) [Ratio] 12.2 % 11.0 - 15.0 % [facility] Hematocrit (Bld) [Volume fraction] 36.9 % 36.0 - 48.0 % [facility] Hemoglobin (Bld) [Mass/Vol] 12.8 g/dL 12.0 - 16.0 g/dL [facility] IMMATURE GRANULOCYTES ABS AUTO 0.03 [facility] Immature granulocytes/100 WBC (Bld) 0.3 % 0.0 - 0.5 % [facility] Interpretation and review of laboratory results Abnormal [facility] LYMPHOCYTES ABSOLUTE AUTO 1.8 [facility] Lymphocytes/100 WBC (Bld) 19.8 % Low 20.5 - 60.0 % [facility] MCH (RBC) [Entitic mass] 29.9 pg 26.7 - 34.0 pg [facility] MCHC (RBC) [Mass/Vol] 34.7 g/dL 29.9 - 35.2 g/dL [facility] MCV (RBC) [Entitic vol] 86.2 fL 81.0 - 99.0 fL [facility] MONOCYTES ABSOLUTE AUTO 0.5 [facility] Monocytes/100 WBC (Bld) 5.5 % 1.7 - 12.0 % [facility] NEUTROPHILS ABSOLUTE AUTO 6.5 [facility] Neutrophils/100 WBC (Bld) 73.1 % 43.0 - 75.0 % [facility] Platelet mean volume (Bld) [Entitic vol] 9.4 fL Low 9.5 - 13.5 fL [facility] EO # 0.1 [facility] Health[facility] e TB PLT 309 [facility] TB RBC 4.28 [facility] TB WBC 9 [facility] e HCG ( test) Ql (U)o n 04-27-2024 Interpretation and review of laboratory results Abnormal [facility] Preg Test, Ur Positive [facility] e Urinalysis macro (dipstick) panel (U)on 04-27-2024 Bilirubin, UA Negative Negative - (70) +++ mg/dL [facility] Blood, UA Negative Negative - 50 Calderon/mcL [facility] Clarity, UA Clear [facility] re Color, UA Yellow [facility] e Glucose, UA Negative Negative - 1999(110) ++++ mg/dL [facility] Interpretation and review of laboratory results Abnormal [facility] Ketones, UA Negative Negative - 160(16) ++++ mg/dL [facility] Leukocytes, UA Trace Negative - 500+++ Eyal/mcL [facility] Nitrite, UA Negative Negative - Positive [facility] pH, UA 7.5 5 - 9 [facility] Protein, UA Negative Negative - 1999(20) ++++ mg/dL [facility] Spec Grav, UA 1.02 1 - 1.03 [facility] Urobilinogen, UA 0.2 0.2 - 12 mg/dL [facility] Registration[facility] 02-17-2021 Registration [id number]# 1.00CD:127 [facility] Consent for Treatmenton Consent for Treatment [id number]# 1.00CD:127 [facility] Vital Signs Date Time Vital Sign Value Performing Clinician Layne armando 07-24-2024 14:29-0500 Body weight 64.32 kg Wale Kenny DO Work Phone: [facility] 07-24-2024 14:29-0500 Diastolic blood pressure 72 mm[Hg] Wale Kenny DO Work Phone: [facility] 07-24-2024 14:29-0500 Systolic blood pressure 100 mm[Hg] Wale Kenny DO Work Phone: [facility] 06-25-2024 14:52-0500 Body weight 61.15 kg Zoey WADE Work Phone: [facility] 06-25-2024 14:52-0500 Diastolic blood pressure 70 mm[Hg] Zoey WADE Work Phone: [facility] 06-25-2024 14:52-0500 Systolic blood pressure 104 mm[Hg] Zoey WADE Work Phone: [facility] 05-28-2024 14:27-0500 Body weight 59.88 kg Wale Kenny DO Work Phone: [facility] 05-28-2024 14:27-0500 Diastolic blood pressure 62 mm[Hg] Wale Kenny DO Work Phone: [facility] 05-28-2024 14:27-0500 Systolic blood pressure 100 mm[Hg] Wale Kenny DO Work Phone: [facility] 04-27-2024 10:48-0400 Body weight 57.61 kg [facility] 04-27-2024 10:48-0400 Diastolic blood pressure 68 mm[Hg] [facility] 04-27-2024 10:48-0400 Systolic blood pressure 100 mm[Hg] [facility] Healthcare Encounters Encounter Date Encounter Type Care Provider Facility Start: 08-02-2024 End: 08-02-2024 ambulatory WALE KENNY Not Available Start: 07-24-2024 End: 07-24-2024 flow sheet Wale Kenny DO Work Phone: [facility] Comment on above: 23 weeks gestation o f ; Second trimester ; Diabetes mellitus screening; Constipation, unspecified constipation type Start: 07-24-2024 End: 07-24-2024 ambulatory WALE KENNY Not Available Start: 07-24-2024 End: 07-24-2024 Bamboo flowsheet Wale Kenny DO Work Phone: [facility] Start: 07-24-2024 End: 07-24-2024 Bamboo flowsheet Wale Kenny DO Work Phone: [facility] Start: 07-13-2024 End: 07-16-2024 Clinisync Result Encounter Generic External Data Provider [facility] Unsolicited Start: 07-13-2024 End: 07-16-2024 Clinisync Result Encounter Generic External Data Provider [facility] Unsolicited Start: 06-25-2024 End: 06-25-2024 Patient encounter procedure Zoey WADE Work Phone: [facility] Start: 06-25-2024 End: 06-25-2024 flow sheet Zoey WADE Work Phone: [facility] Comment on above: 19 weeks gestation o f ; Second trimester ; Screening, , for anatomic survey; Exposure to STD; Vaginal discharge; Well woman exam with routine gynecological exam Start: 06-25-2024 End: 06-25-2024 ambulatory ZOEY MCNEILL Not Available Start: 06-25-2024 End: 06-25-2024 Bamboo flowsheet Zoey WADE Work Phone: [facility] Start: 06-25-2024 End: 07-02-2024 Bamboo flowsheet Zoey Mcneill MAURO Work Phone: [facility] Start: 06-25-2024 End: 07-02-2024 Clinisync Result Encounter Zoey Mcneill MAURO Work Phone: [facility] Unsolicited Start: 06-25-2024 End: 06-26-2024 External Result Encounter Zoey Mcneill MAURO Work Phone: [facility] Unsolicited Start: [...] Date Procedure Procedure Detail Performing Clinician Start: 07-24-2024 Urnls dip stick/tabl et rgnt non-auto w/o micrscp Wale Kenny DO Work Phone: Start: 07-13-2024 AFP, SERUM, OPEN SPI NA BIFIDA Zoey WADE Work Phone: Start: 06-25-2024 RECURRENT VAGINITIS (HTRX) Zoey WADE [...] Treatment Date Care Activity Detail Author Start: 08-21-2024 End: 08-21-2024 Patient encounter procedure 08/21/2024 1:00 PM EST Routine [facility] [address] [place] [address] Zoey Mcneill PA [address] [place] [address] [facility] Start: 08-02-2024 End: 08-02-2024 Professional / ancillary services management 08/02/2024 10:30 AM EST Ancillary Procedure [facility] [address] [place] [address] [facility] Start: 07-24-2024 End: 07-24-2024 Patient encounter procedure [facility] Comment on above: Arrived Start: 07-24-2024 End: 07-24-2025 CBC panel - Blood by Automated count CBC Lab Routine Diabetes mellitus screening Expected: 07/24/2024 (Approximate), Expires: 07/24/2025 [facility] Work Phone: Comment on above: Expected: 07/24/2024 (Approximate), Expires: 07/24/2025 Start: 07-24-2024 End: 07-24-2025 Measurement of glucose 1 hour after glucose challenge for glucose tolerance test Glucose tolerance, 1 hour Lab Routine Diabetes mellitus screening Expected: 07/24/2024 (Approximate), Expires: 07/24/2025 [facility] Comment on above: Expected: 07/24/2024 (Approximate), Expires: 07/24/2025 Start: 06-25-2024 End: 06-25-2024 Patient encounter procedure [facility] Comment on above: Arrived Start: 06-25-2024 End: 07-26-2024 Alpha fetoprotein, maternal Alpha fetoprotein, maternal Lab Routine 19 weeks gestation of Second trimester Expected: 06/25/2024 (Approximate), Expires: 07/26/2024 [facility] Comment on above: Expected: 06/25/2024 (Approximate), Expires: 07/26/2024 Start: 06-25-2024 End: 06-25-2025 US for US OB ANATOMY SINGLE W US OB CERVICAL LENGTH Imaging Routine Screening, , for anatomic survey Expected: 06/25/2024 (Approximate), Expires: 06/25/2025 [facility] Healthcare Comment on above: Expected: 06/25/2024 (Approximate), Expires: 06/25/2025 Start: 05-28-2024 End: 05-28-2025 US for US OB ANATOMY SINGLE W US OB CERVICAL LENGTH Imaging Routine Second trimester Screening, , for anatomic survey Expected: 05/28/2024 (Approximate), Expires: 05/28/2025 [facility] Work Phone: Comment on above: Expected: 05/28/2024 (Approximate), Expires: 05/28/2025 Start: 05-28-2024 End: 05-28-2024 Patient encounter procedure 05/28/2024 1:40 PM EST Routine [facility] [address] [place] [id number] Wale Cox, [address] [place] [address] [facility] Start: 04-27-2024 End: 04-27-2025 ABO/Rh ABO/Rh Lab Routine Missed menses , unspecified gestational age Expected: 04/27/2024 (Approximate), Expires: 04/27/2025 [facility] Comment on above: Expected: 04/27/2024 (Approximate), Expires: 04/27/2025 Start: 04-27-2024 End: 04-27-2025 Blood type and Indirect antibody screen panel - Blood Type and screen Lab Routine Missed menses , unspecified gestational age Expected: 04/27/2024 (Approximate), Expires: 04/27/2025 [facility] Work Phone: Comment on above: Expected: 04/27/2024 (Approximate), Expires: 04/27/2025 Start: 04-27-2024 End: 04-27-2025 Drugs of abuse panel - Urine by Screen method Rapid drug screen, urine Lab Routine , unspecified gestational age Encounter for supervision of normal first in first trimester Expected: 04/27/2024 (Approximate), Expires: 04/27/2025 [facility] Comment on above: Expected: 04/27/2024 (Approximate), Expires: 04/27/2025 Start: 04-27-2024 End: 04-27-2025 US Pelvis transvaginal US OB transvaginal Imaging Routine Missed menses Expected: 04/27/2024 (Approximate), Expires: 04/27/2025 [facility] Healthcare Comment on above: Expected: 04/27/2024 (Approximate), Expires: 04/27/2025 Start: 03-11-2024 Influenza vaccination Influenza Vacc ine (#1) [facility] Bacteria identified in Urine by Culture Urine culture Microbiology Routine Missed menses Ordered: 04/27/2024 [facility] Comment on above: Ordered: 04/27/2024 CBC W Auto Different ial panel - Blood CBC and differential Lab Routine Missed menses , unspecified gestational age Ordered: 04/27/2024 [facility] Comment on above: Ordered: 04/27/2024 CHLAMYDIA TRACHOMATI S (GENITO/STI) CHLAMYDIA TRACHOMATIS (GENITO/STI) Lab Routine Exposure to STD Ordered: 06/25/2024 [facility] Comment on above: Ordered: 06/25/2024 Cytology Cervical or vaginal smear or scraping study Pap Smear Pathology and Cytology Routine Well woman exam with routine gynecological exam Ordered: 06/25/2024 [facility] Work Phone: Comment on above: Ordered: 06/25/2024 Hemoglobin A1c/Hemoglobin.total in Blood Hemoglobin A1c Lab Routine Missed menses , unspecified gestational age Ordered: 04/27/2024 [facility] Comment on above: Ordered: 04/27/2024 Hepatitis B virus surface Ag [Presence] in Serum or Plasma by Immunoassay Hepatitis B surface antigen Lab Routine Missed menses , unspecified gestational age Ordered: 04/27/2024 [facility] Comment on above: Ordered: 04/27/2024 Hepatitis C virus Ab [Presence] in Serum or Plasma by Immunoassay Hepatitis C antibody Lab Routine Missed menses , unspecified gestational age Ordered: 04/27/2024 [facility] Comment on above: Ordered: 04/27/2024 HIV-1/HIV-2 antigen/antibody combination immunoassay HIV-1 and HIV-2 antibodies Lab Routine Missed menses , unspecified gestational age Ordered: 04/27/2024 [facility] Comment on above: Ordered: 04/27/2024 Neisseria gonorrhoea e DNA [Presence] in Unspecified specimen by CEDRICK with probe detection Neisseria gonorrhea DNA probe, direct Lab Routine Exposure to STD Ordered: 06/25/2024 [facility] Comment on above: Ordered: 06/25/2024 Reagin Ab [Presence] in Serum by RPR RPR Lab Routine Missed menses , unspecified gestational age Ordered: 04/27/2024 [facility] Comment on above: Ordered: 04/27/2024 Rubella antibody, IgG Rubella an tibody, IgG Lab Routine Missed menses , unspecified gestational age Ordered: 04/27/2024 [facility] Comment on above: Ordered: 04/27/2024 SURESWAB(R) ADVANCED VAGINITIS PLUS, TMA SURESWAB(R) ADVANCED VAGINITIS PLUS, TMA Pathology and Cytology Routine Vaginal discharge Ordered: 06/25/2024 [facility] Comment on above: Ordered: 06/25/2024 Payers Date Payer Category Payer [facility] [id number] [id number] 15 2018 Unknown [id number] 1995 Unknown [id number] 2.16.84 [id number] 1995 Unknown [id number] 2.16.84 [id number] 1995 Unknown [id number] 2.16.84 [id number] 1995 Unknown [id number] 2.16.84 [id number] 1995 Unknown [id number] 2.16.84 [id number] Social History Date Type Detail Facility Tobacco smoking stat [facility] Tobacco smoking consumption unknown [facility] Start: 02-27-2024 [facility] Start: 1995 Sex assigned at Not on file [facility] Gender identity Not on file [facility] History of Present illness Narrative 07-24-2024 Rema Espinoza LPN - 07/24/2024 2:20 PM EST Note Date & Type Note Facility 07-24-2024 History of Presen t illness Narrative Reason for Appointment: Patient ID: Cole Batista is a 28 y.o. female who presents for Routine Visit Patient presents today for Return OB appointment. MEDICATIONS Current Outpatient Medications Medication Instructions docusate sodium (COLACE) 100 mg, Oral, 2 times daily PRN ALLERGIES Allergies Allergen Reactions Shrimp (Diagnostic) PROBLEMS Active Ambulatory Problems Diagnosis Date Noted Second trimester 05/28/2024 15 weeks gestation of 05/28/2024 Screening, , for anatomic survey 05/28/2024 headache, antepartum 05/28/2024 Marginal placenta previa 07/05/2024 Resolved Ambulatory Problems Diagnosis Date Noted No Resolved Ambulatory Problems No Additional Past Medical History HISTORY PAST MEDICAL HISTORY SOCIAL HISTORY No past medical history on file. Social History Tobacco Use Smoking status: Not on file Smokeless tobacco: Not on file Substance Use Topics Alcohol use: Not on file Drug use: Not on file FAMILY HISTORY No family history on file. SURGICAL HISTORY No past surgical history on file. REVIEW OF SYSTEMS Review of Systems: Review [...] nursing note reviewed. Exam conducted with a subsorter present. Vitals: There is no height or weight on file to calculate BMI. BP: 100/72 Patient's last menstrual period was 02/13/2024. ASSESSMENT & PLAN ICD-10-CM 1. 23 weeks gestation of Z3A.23 POCT urinalysis dipstick manually resulted 2. Second trimester Z34.92 POCT urinalysis dipstick manually resulted 3. Diabetes mellitus screening Z13.1 CBC Glucose tolerance, 1 hour CBC Glucose tolerance, 1 hour 4. Constipation, unspecified constipation type K59.00 docusate sodium (Colace) 100 MG capsule Patient presents today for a routine obstetrics appointment. Patient is currently 23w1d with a Estimated Date of Delivery: 11/19/24.Pt given glucose order with instructions. Pt states she is constipated rx for colace faxed to pharmacy. Pt advised to schedule ultrasound for follow up anatomy and marginal previa. Documented by Rema Espinoza LPN on behalf of: Wale Cox DO documented in this encounter [facility] History of Present illness Narrative 06-25-2024 MAURO Quesada - 06/25/2024 2:50 PM ESTMAURO Quesada - 06/25/2024 2:50 PM EST Note Date & Type Note Facility 06-25-2024 History of Presen t illness Narrative Reason for Appointment: Patient ID: Cole Batista is a 28 y.o. female who [...] obtained without difficulty and patient was given [facility] order to have obtained. Orders Placed This [...] MAURO Quesada Reason for Appointment: Patient ID: Cole Batista is a 28 y.o. female who [...] nursing note reviewed. Exam conducted with a subsorter present. Vitals: There is no height or [...] Healthcare History of Present illness Narrative 05-28-2024 DEE Schroeder 05/28/2024 1:40 PM EST Note Date & Type Note Facility 05-28-2024 History of Presen t illness Narrative Reason for Appointment: Patient ID: Cole Batista is a 28 y.o. female who [...] nursing note reviewed. Exam conducted with a subsorter present. Vitals: There is no height or [...] or undercooked meat, [facility] Patient has been consulted regarding any [...] EDT Note Date & Type Note Facility 10-18-2024 History of Presen t illness Narrative Reason for Appointment: Patient ID: Cole Batista is a 28 y.o. female who [...] or undercooked meat, [facility]. Patient has also been advised to [...] by: Sophy Bhakta documented in this encounter [facility] Evaluation note Note Date & Type Note Facility Evaluation note Diagnosis Missed menses , unspecified gestational age Encounter for supervision of normal first in first trimester documented in this encounter [facility] Healthcare Evaluation note Note Date & Type Note Facility Evaluation note Diagnosis Second trimester state, incidental 15 weeks gestation of Screening, , for anatomic survey Encounter for anatomic survey headache, antepartum documented in this encounter [facility] Healthcare Evaluation note Note Date & Type Note Facility Evaluation note Diagnosis 19 weeks gestation of Second trimester state, incidental Screening, , for anatomic survey Encounter for anatomic survey Exposure to STD Vaginal discharge Leukorrhea, not specified as infective Well woman exam with routine gynecological exam Routine gynecological examination documented in this encounter [facility] Healthcare Evaluation note Note Date & Type Note Facility Evaluation note Diagnosis 23 weeks gestation of Second trimester state, incidental Diabetes mellitus screening Screening for diabetes mellitus Constipation, unspecified constipation type documented in this encounter [facility] Healthcare Summary Purpose Family History No Family History Records FoundNo Family History Records Found Advance Directives No Advanced Directives Records FoundNo Advanced Directives Records Found Additional Source Comments INFORMATION SOURCE (unrecogn ized section and content) DATE CREATED AUTHOR [facility]20[facility] DATE CREATED AUTHOR AUTHOR'S ORGANIZ ATION 08/04/2024 [facility] EPIC Reason for Visit (unrecogniz ed section and content) Reason Comments Initial Visit Reason Comments Routine Visit Care Teams (unrecognized sec tion and content) Hide Or Skin Buffer Relationship Specialty Start Date End Date Steffen Guillaume MD [address] [facility] [address] [place] [address] PCP - General Family Medicine 11/16/22 Hide Or Skin Buffer Relationship Specialty Start Date End Date Steffen Guillaume MD [address] [facility] [address] [place] [address] PCP - General Family Medicine 11/16/22 Hide Or Skin Buffer Relationship Specialty Start Date End Date Steffen Guillaume MD [address] [facility] [address] [place] [address] PCP - General Family Medicine 11/16/22 Hide Or Skin Buffer Relationship Specialty Start Date End Date Steffen Guillaume MD [address] [facility] [address] [place] [address] PCP - [facility] Medicine 11/16/22 Hide Or Skin Buffer Relationship Specialty Start Date End Date Steffen Guillaume MD [address] [facility] [address] [place] [address] PCP - General [facility] 11/16/22 Hide Or Skin Buffer Relationship Specialty Start Date End Date Steffen Guillaume MD [address] [facility] [address] [place] [address] PCP - General [facility] Medicine 11/16/22 Hide Or Skin Buffer Relationship Specialty Start Date End Date Steffen Guillaume MD [address] [facility] [address] [place] [address] PCP - General Family [facility] 11/16/22 FOR RECORDS PERTAINING TO PATIENTS WHO [...] BE BASED ON THE PRIMARY CLINICAL RECORDS. [facility]. provides no warranty or guarantee of the accuracy or completeness of information in this document.
[2024-08-04 12:27] LABS: Basophils Percent Auto 0.2 % (0.2-2.0); Eosinophils Absolute Auto 0.1 10^3/uL (0.0-0.7); Eosinophils Percent Auto 1.1 % (0.9-7.0); Hematocrit 31.6 % (36.0-48.0); Hemoglobin 10.3 g/dL (12.0-16.0); Immature Granulocytes Abs Auto 0.06 10^3/uL (0.00-0.03); Immature Granulocytes Pct Auto 0.7 % (0.0-0.5); Lymphocytes Absolute Auto 1.7 10^3/uL (1.2-3.8); Mean Corpuscular HGB Conc 32.6 g/dL (29.9-35.2); Mean Corpuscular Hemoglobin 28.8 pg (26.7-34.0); Mean Corpuscular Volume 88.3 fL (81.0-99.0); Mean Platelet Volume 9.5 fL (9.5-13.5); Monocytes Absolute Auto 0.6 10^3/uL (0.3-0.8); Monocytes Percent Auto 6.3 % (1.7-12.0); Neutrophils Absolute Auto 6.3 10^3/uL (1.4-6.5); Neutrophils Percent Auto 71.7 % (43.0-75.0); Platelet Count 307 10^3/uL (150-450); Red Blood Count 3.58 10^6/uL (4.20-5.40); Red Cell Distribution Width 12.4 % (11.0-15.0); White Blood Count 8.7 10^3/uL (4.0-11.0)
[2024-08-04 12:58] LABS: Glucose 1 Hour 155 mg/dL (<130)
== END 2024-08-04 11:03 | disposition home or self-care (01) ==
LOC: LAB 11:02
PROVIDERS: PCP Family Medicine; Visit Provider Obstetrics & Gynecology
DX: O26.893 Other specified pregnancy related conditions, third trimester (principal); Z13.1 Encounter for screening for diabetes mellitus
CPT/HCPCS: 36415; 82950; 85025

== ENCOUNTER 2024-08-24 09:59 | Outpatient (OUT) | payer BC, SELFPAY ==
--- OUTSIDE RECORDS SUMMARY | 2024-08-24 10:04 | XMS_ITS | CCD ---
Author Organization [facility] Care Team Providers Care Vault Manager Name Role Phone Steffen Guillaume MD Primary Care Provider [phone] ZOEY MCNEILL Attending Unavailable WALE COX Attending Unavailable ZOEY MCNEILL Attending Unavailable WALE COX Attending Unavailable Allergies Allergy Classification Reported Allergen(s) Allergy Type Date of Onset Reaction(s) Facility (17 sources) Shrimp product Propensity to adverse reactions [...] days 30 capsule 5 07/24/2024 08/03/2024 Active polysaccharide iron complex 391 mg oral capsule (3 sources) Start: 08-07-2024 End: 08-07-2025 take 1 capsule by mouth once daily iron polysaccharides (ProFe) 391.3 (180 Fe) MG capsule Indications: Anemia during in second trimester Take 1 capsule (391.3 mg) by mouth Daily 30 capsule 11 08/07/2024 08/07/2025 Active Problems Problem Classification Problem Date Documented Da te Episodic/Chronic Hemorrhage during ; abruptio placenta; placenta previa (7 sources) Placenta previa marginalis; Translations: [Partial placenta previa NOS or without hemorrhage, unspecified trimester] Onset: 07-05-2024 07-05-2024 Episodic Immunizations and screening for infectious disease (2 sources) Exposure to sexually transmissible disorder; Translations: [Contact with and (suspected) exposure to infections with a predominantly sexual mode of transmission] 06-25-2024 Episodic Menstrual disorders (1 source) Missed period; Translations: [Irregular menstruation, unspecified] 04-27-2024 Chronic Other complications of (17 sources) Headache; Translations: [Other specified related conditions, [...] conditions (not mental disorders or infectious disease) (20 sources) Patient encounter status; Translations: [Encounter for other specified screening] Onset: 05-28-2024 05-28-2024 Episodic Residual codes; unclassified (17 sources) Gestation period, 15 weeks; Translations: [15 weeks gestation of ] Onset: 05-28-2024 05-28-2024 Episodic Residual codes; unclassified (2 sources) Gestation period, 19 weeks; Translations: [19 weeks gestation of ] 06-25-2024 Episodic Residual codes; unclassified (2 sources) Gestation period, 23 weeks; Translations: [23 weeks gestation of ] 07-24-2024 Episodic Residual codes; unclassified (2 sources) Gestation period, 27 weeks; Translations: [27 weeks gestation of ] 08-21-2024 Episodic Results Test Name Value Interpretation Reference [...] from the cervical os. Dictated and transcribed 08/02/24/dptoribio This report has been electronically signed and approved by the interpreting radiologist. Normal Not Available Comment on above: Order Comment: Estim ated Date of Delivery: 11/19/24 Gestational Age as of 07/05/2024: 20w3d Urinalysis macro (dipstick) panel (U)on 07-24-2024 Bilirubin, UA Negative Negative - 4(70) +++ mg/dL [facility] Blood, UA Negative Negative - 50 Calderon/mcL [facility] Clarity, UA Clear [facility] Color, UA Yellow [facility] Glucose, UA Negative Negative - 1999(110) ++++ mg/dL [facility] Interpretation and review of laboratory results Abnormal [facility] Ketones, UA Negative Negative - 160(16) ++++ mg/dL [facility] Leukocytes, UA Trace Negative - 500+++ Eyal/mcL [facility] Nitrite, UA Negative Negative - Positive [facility] pH, UA 7 5 - 9 [facility] Protein, UA Negative Negative - 1999(20) ++++ mg/dL [facility] Spec Grav, UA 1.02 1 - 1.03 [facility] care Urobilinogen, UA 0.2 0.2 - 12 mg/dL [facility] AFP, SERUM, OPEN SPINA BIFID Aon 07-16-2024 AFP MOM 1.03 . [facility] AFP VALUE 76.2 ng/mL . [facility] COMMENT: Comment . [facility] Comment on above: Winifred Burch , Ph.D., [facility] Director References: Available Upon Request. Multiples Of Median Cutoffs For AFP Elevations Moffett 2.5 Black 2.8 IDD 2.0 Twins 4.5 Abbreviation Definitions IDD - Insulin Dep Diabetes OSBR - Open Spina Bifida Risk For further inquiries contact [email or web address] at [phone]. This test was developed and its performance characteristics determined by [facility]. It has not been cleared or approved by the Food and Drug Administration. Performed at: [facility] [address] [facility], [place], [place] [id number] Organ Recovery Coordinator: Babita Carranza [facility], Phone: [phone] GEST. AGE ON COLLECTION DATE 21.6 . weeks [facility] GESTAT. AGE BASED ON LMP . [facility] Comment on above: Recalculations are n ot recommended when gestational dating by LMP and ultrasound are within 10 days. INSULIN DEP DIABETES No . [facility] INTERPRETATION Comment . [facility] Gloria torres Comment on above: Interpretation: Scre en Negative [...] Customer Services to discuss available options. The [employer] recommends amniocentesis be offered to women age 35 and older. [age] [facility] MULTIPLE GESTATION No . [facility] [place] [place] [id number] [address] [facility] Gloria torres RACE Other . [facility] [employer] RESULTS Report . [facility] Becual e TEST RESULTS: Negative . [facility] WEIGHT [address] [facility] Becual e N N LMP [id number] [phone] N 1 Y 135 N N N N N Other Race [facility] Becual e IGP,APTIMA HPV,AGE GDLNon AGE GDLN ACOG TESTING Note . [facility] Comment on above: TESTS RESULT FLAG UN ITS REF RANGE LAB Clinician Provided Cytology Information Source.............Cervix Other.............. No. of containers..01 ThinPrep Vial Age Algo ACOG Bettye... FLAG LEGEND: L-Low Normal,H-High Normal,LL-Alert Low,HH-Alert High <-Panic Low,>-Panic High,A-Abnormal,AA-Critical Abnormal Performed at: 01 = [address] [place] [address] Grecia Wright MD, IGP, RFX APTIMA HPV ASCU Note . [facility] Comment on above: TESTS RESULT FLAG UN ITS REF RANGE LAB DIAGNOSIS: 02 NEGATIVE FOR INTRAEPITHELIAL LESION OR MALIGNANCY. Specimen adequacy: 02 Satisfactory for evaluation. No endocervical component is identified. An endocervical component is not commonly seen in the patient. Performed by: Claribel Minor, Pet Walker ([facility]) . 02 Note: Note 02 The [...] <-Panic Low,>-Panic High,A-Abnormal,AA-Critical Abnormal Performed at: [address] [address] Grecia Wright MD, Performed at: = - [facility] [address] [id number] Organ Recovery Coordinator: Grecia Wright MD, Phone: [phone] Performed at: [facility] [address] [id number] Organ Recovery Coordinator: Grecia Wright MD, Phone: [phone] SPATULA-ALONE CERVIX [facility] Health[facility] e RECURRENT VAGINITIS (HTRX)on 06-26-2024 ATOPOBIUM VAGINAE 15.84 Abnormal [facility] ATOPOBIUM VAGINAE Detected Abnormal [facility] BVAB 2,3 (BACTERIAL VAGINOSIS ASSOCIATED BACTERIA 2, 3); MOBILUNCUS SPP 24.558 Abnormal [facility] BVAB 2,3 (BACTERIAL VAGINOSIS ASSOCIATED BACTERIA 2, 3); MOBILUNCUS SPP Detected Abnormal [facility] SOHAM ALBICANS, PARAPSILOSIS, TROPICALIS 0 [facility] SOHAM ALBICANS, PARAPSILOSIS, TROPICALIS Not detected [facility] SOHAM GLABRATA 0 [facility] S[facility] GLABRATA Not detected [facility] SOHAM KRUSEI [facility] SOHAM KRUSEI Not detected [facility] CHLAMYDIA TRACHOMATIS [address] [facility] Healthcare CHLAMYDIA TRACHOMATIS Not detected [facility] GARDNERELLA VAGINALIS 21.394 Abnormal [facility] GARDNERELLA VAGINALIS Detected Abnormal [facility] Healthcare Interpretation and review of laboratory results Abnormal [facility] Healthcare MEGASPHAERA (TYPES 1, 2) 0 [facility] MEGASPHAERA (TYPES 1, 2) Not detected [facility] MYCOPLASMA GENITALIUM 0 [facility] MYCOPLASMA GENITALIUM Not detected [facility] NEISSERIA GONORRHOEAE 0 [facility] NEISSERIA GONORRHOEAE Not detected [facility] TET B, TET M 18.181 Abnormal [facility] TET B, TET M Detected Abnormal [facility] TRICHOMONAS VAGINALIS 0 [facility] TRICHOMONAS VAGINALIS Not detected [facility] Urinalysis macro (dipstick) panel (U)on 06-25-2024 Bilirubin, UA Negative Negative - 4(70) +++ mg/dL [facility] Blood, UA Negative Negative - 50 Calderon/mcL [facility] Healthcare Clarity, UA Clear [facility] Healthca re Color, UA Yellow [facility] Glucose, UA Negative Negative - 1999(110) ++++ mg/dL [facility] Interpretation and review of laboratory results Abnormal [facility] Ketones, UA Negative Negative - 160(16) ++++ mg/dL [facility] Leukocytes, UA Trace Negative - 500+++ Eyal/mcL [facility] Nitrite, UA Negative Negative - Positive [facility] pH, UA 6 5 - 9 [facility] Protein, UA Negative Negative - 1999(20) ++++ mg/dL [facility] Spec Grav, UA 1.01 1 - 1.03 [facility] Urobilinogen, UA 0.2 0.2 - 12 mg/dL [facility] Urinalysis macro (dipstick) panel (U)on 05-28-2024 Bilirubin, UA Negative Negative - 4(70) +++ mg/dL [facility] Blood, UA Negative Negative - 50 Calderon/mcL [facility] Clarity, UA Clear [facility] Health[facility] re Color, UA Yellow [facility] Glucose, UA Negative Negative - 1999(110) ++++ mg/dL [facility] Interpretation and review of laboratory results Normal [facility] Ketones, UA Negative Negative - 160(16) ++++ mg/dL [facility] Leukocytes, UA Negative Negative - 500+++ Eyal/mcL [facility] Nitrite, UA Negative Negative - Positive [facility] pH, UA 7 5 - 9 [facility] Protein, UA Negative Negative - 1999(20) ++++ mg/dL [facility] Spec Grav, UA 1.015 1 - 1.03 [facility] Urobilinogen, UA 0.2 0.2 - 12 mg/dL [facility] ALL CBC WITH AUTO DIFFon BASOPHILS ABSOLUTE AUTO 0 [facility] Basophils/100 WBC (Bld) 0.2 % 0.2 - 2.0 % [facility] Eosinophils/100 WBC (Bld) 1.1 % 0.9 - 7.0 % [facility] Erythrocyte distribution width (RBC) [Ratio] 12.2 % 11.0 - 15.0 % [facility] Hematocrit (Bld) [Volume fraction] 36.9 % 36.0 - 48.0 % [facility] Hemoglobin (Bld) [Mass/Vol] 12.8 g/dL 12.0 - 16.0 g/dL [facility] IMMATURE GRANULOCYTES ABS AUTO 0.03 [facility] Immature granulocytes/100 WBC (Bld) 0.3 % 0.0 - 0.5 % [facility] Interpretation and review of laboratory results Abnormal [facility] LYMPHOCYTES ABSOLUTE AUTO 1.8 [facility] Lymphocytes/100 WBC (Bld) 19.8 % Low 20.5 - 60.0 % [facility] MCH (RBC) [Entitic mass] 29.9 pg 26.7 - 34.0 pg [facility] MCHC (RBC) [Mass/Vol] 34.7 g/dL 29.9 - 35.2 g/dL [facility] MCV (RBC) [Entitic vol] 86.2 fL 81.0 - 99.0 fL [facility] MONOCYTES ABSOLUTE AUTO 0.5 [facility] Monocytes/100 WBC (Bld) 5.5 % 1.7 - 12.0 % [facility] NEUTROPHILS ABSOLUTE AUTO 6.5 [facility] Neutrophils/100 WBC (Bld) 73.1 % 43.0 - 75.0 % [facility] Platelet mean volume (Bld) [Entitic vol] 9.4 fL Low 9.5 - 13.5 fL [facility] E[facility] # 0.1 [facility] TB PLT 309 [facility] RBC 4.28 [facility] WBC 9 [facility] HCG ( test) Ql (U)o n 04-27-2024 Interpretation and review of laboratory results Abnormal [facility] Preg Test, Ur Positive [facility] Urinalysis macro (dipstick) panel (U)on 04-27-2024 Bilirubin, UA Negative Negative - 4(70) +++ mg/dL [facility] Blood, UA Negative Negative - 50 Calderon/mcL [facility] Clarity, UA Clear [facility] re Color, UA Yellow [facility] Glucose, UA Negative Negative - 1999(110) ++++ mg/dL [facility] Interpretation and review of laboratory results Abnormal [facility] Ketones, UA Negative Negative - 160(16) ++++ mg/dL [facility] Leukocytes, UA Trace Negative - 500+++ Eyal/mcL [facility] Nitrite, UA Negative Negative - Positive [facility] pH, UA 7.5 5 - 9 [facility] Protein, UA Negative Negative - 1999(20) ++++ mg/dL [facility] Spec Grav, UA 1.02 1 - 1.03 [facility] Urobilinogen, UA 0.2 0.2 - 12 mg/dL [facility] Registrationon 02-17-2021 Registration [id number]# 1.00CD:127 [facility] Consent for Treatmenton Consent for Treatment [id number]# 1.00CD:127 [facility] Vital Signs Date Time Vital Sign Value Performing Clinician Jenniferi tr 08-21-2024 13:34-0500 Body weight 64.41 kg Zoey WADE Work Phone: [facility] 08-21-2024 13:34-0500 Diastolic blood pressure 68 mm[Hg] Zoey WADE Work Phone: [facility] 08-21-2024 13:34-0500 Systolic blood pressure 102 mm[Hg] oZey WADE Work Phone: [facility] 07-24-2024 14:29-0500 Body weight 64.32 kg Wale Kenny DO Work Phone: [facility] 07-24-2024 14:29-0500 Diastolic blood pressure 72 mm[Hg] Wale Kenny DO Work Phone: [facility] 07-24-2024 14:29-0500 Systolic blood pressure 100 mm[Hg] Wale Kenny DO Work Phone: [facility] 06-25-2024 14:52-0500 Body weight 61.15 kg Zoey WADE Work Phone: [facility] 06-25-2024 14:52-0500 Diastolic blood pressure 70 mm[Hg] Zoey WADE Work Phone: [facility] 06-25-2024 14:52-0500 Systolic blood pressure 104 mm[Hg] Zoey WADE Work Phone: [facility] 05-28-2024 14:27-0500 Body weight 59.88 kg Wale Kenny DO Work Phone: [facility] 05-28-2024 14:27-0500 Diastolic blood pressure 62 mm[Hg] Wale Kenny DO Work Phone: [facility] 05-28-2024 14:27-0500 Systolic blood pressure 100 mm[Hg] Wale Kenny DO Work Phone: [facility] 04-27-2024 10:48-0400 Body weight 57.61 kg Noms Nurse [facility] 04-27-2024 10:48-0400 Diastolic blood pressure 68 mm[Hg] Noms Nurse [facility] 04-27-2024 10:48-0400 Systolic blood pressure 100 mm[Hg] Nom Nurse [facility] Healthcare Encounters Encounter Date Encounter Type Care Provider Facility Start: 08-21-2024 End: 08-21-2024 Bamboo flowsheet Zoey WADE Work Phone: [facility] Start: 08-21-2024 End: 08-21-2024 Bamboo flowsheet Zoey WADE Work Phone: [facility] Start: 08-21-2024 End: 08-21-2024 ambulatory ZOEY MCNEILL Not Available Start: 08-21-2024 End: 08-21-2024 flow sheet Zoey WADE Work Phone: [facility] Comment on above: Encounter for follow -up ultrasound of anatomy; Second trimester ; 27 weeks gestation of Start: 08-02-2024 End: 08-02-2024 ambulatory ZOEY MCNEILL Not Available Start: 07-24-2024 End: 07-24-2024 flow sheet Wale Kenny DO Work Phone: [facility] Comment on above: 23 weeks gestation o f ; Second trimester ; Diabetes mellitus screening; Constipation, unspecified constipation type Start: 07-24-2024 End: 07-24-2024 ambulatory WALE KENNY Not Available Start: 07-24-2024 End: 07-24-2024 Bamboo flowsheet Wale Kenny DO Work Phone: [facility] Start: 07-24-2024 End: 07-24-2024 Bamboo flowsheet Wale Kenny DO Work Phone: [facility] Start: 07-13-2024 End: 07-16-2024 [facility] Result Encounter Generic External Data Provider [facility] External Department Unsolicited Start: 07-13-2024 End: 07-16-2024 [facility] Result Encounter Generic External Data Provider [facility] External Department Unsolicited Start: 06-25-2024 End: 06-25-2024 Patient encounter procedure Zoey WADE Work Phone: [facility] Start: 06-25-2024 End: 06-25-2024 flow sheet Zoey WADE Work Phone: [facility] Comment on above: 19 weeks [...] Department Unsolicited Start: 04-27-2024 End: 04-27-2024 ambulatory ZOEY MCNEILL Not Available Start: 04-27-2024 End: 04-27-2024 Office [...] Treatment Date Care Activity Detail Author Start: 09-05-2024 End: 09-05-2024 Patient encounter procedure 09/05/2024 1:50 PM EST Routine [facility] [address] [place] [address] Wale Cox, DO [address] [place] [address] [facility] Start: 08-27-2024 End: 08-27-2024 Professional / ancillary services management 08/27/2024 12:30 PM EST Ancillary Procedure [facility] [address] [place] [address] [facility] Start: 08-21-2024 End: 08-21-2025 US for US OB limited 1+ fetuses Imaging Routine Encounter for follow-up ultrasound of anatomy Expected: 08/21/2024, Expires: 08/21/2025 [facility] Work Phone: Comment on above: Expected: 08/21/2024 , Expires: 08/21/2025 Start: 08-21-2024 End: 08-21-2024 Patient encounter procedure 08/21/2024 1:00 PM EST Routine [facility] [address] [place] [address] Zoey Mcneill PA [address] [place], [place] [id number] [facility] Start: 08-02-2024 End: 08-02-2024 Professional / ancillary services management 08/02/2024 10:30 AM EST Ancillary Procedure [facility] [address] [place] [id number] [facility] Start: 07-24-2024 End: 07-24-2024 Patient encounter procedure [facility] Comment on above: Arrived Start: 07-24-2024 End: 07-24-2025 CBC panel - Blood by Automated count CBC Lab Routine Diabetes mellitus screening Expected: 07/24/2024 (Approximate), Expires: 07/24/2025 [facility] Work Phone: Comment on above: Expected: 07/24/2024 (Approximate), Expires: 07/24/2025 Start: 07-24-2024 End: 07-24-2025 Measurement of glucose 1 hour after glucose challenge for glucose tolerance test Glucose tolerance, 1 hour Lab Routine Diabetes mellitus screening Expected: 07/24/2024 (Approximate), Expires: 07/24/2025 [facility] Healthcare Comment on above: Expected: 07/24/2024 (Approximate), Expires: 07/24/2025 Start: 06-25-2024 End: 06-25-2024 Patient encounter procedure [facility] Comment on above: Arrived Start: 06-25-2024 End: 07-26-2024 Alpha fetoprotein, maternal Alpha fetoprotein, maternal Lab Routine 19 weeks gestation of Second trimester Expected: 06/25/2024 (Approximate), Expires: 07/26/2024 [facility] Healthcare Comment on above: Expected: 06/25/2024 (Approximate), Expires: 07/26/2024 Start: 06-25-2024 End: 06-25-2025 US for US OB ANATOMY SINGLE W US OB CERVICAL LENGTH Imaging Routine Screening, , for anatomic survey Expected: 06/25/2024 (Approximate), Expires: 06/25/2025 [facility] Healthcare Comment on above: Expected: 06/25/2024 (Approximate), Expires: 06/25/2025 Start: 05-28-2024 End: 05-28-2025 US for US OB ANATOMY SINGLE W US OB CERVICAL LENGTH Imaging Routine Second trimester Screening, , for anatomic survey Expected: 05/28/2024 (Approximate), Expires: 05/28/2025 [facility] Work Phone: Comment on above: Expected: 05/28/2024 (Approximate), Expires: 05/28/2025 Start: 05-28-2024 End: 05-28-2024 Patient encounter procedure 05/28/2024 1:40 PM EST Routine [facility] [address] [place] [phone] Wale Cox DO [address] [place] [address] [facility] Start: 04-27-2024 End: 04-27-2025 ABO/Rh ABO/Rh Lab Routine Missed menses , unspecified gestational age Expected: 04/27/2024 (Approximate), Expires: 04/27/2025 [facility] Healthcare Comment on above: Expected: 04/27/2024 (Approximate), Expires: 04/27/2025 Start: 04-27-2024 End: 04-27-2025 Blood type and Indirect antibody screen panel - Blood Type and screen Lab Routine Missed menses , unspecified gestational age Expected: 04/27/2024 (Approximate), Expires: 04/27/2025 [facility] Work Phone: Comment on above: Expected: 04/27/2024 (Approximate), Expires: 04/27/2025 Start: 04-27-2024 End: 04-27-2025 Drugs of abuse panel - Urine by Screen method Rapid drug screen, urine Lab Routine , unspecified gestational age Encounter for supervision of normal first in first trimester Expected: 04/27/2024 (Approximate), Expires: 04/27/2025 [facility] Healthcare Comment on above: Expected: 04/27/2024 (Approximate), Expires: 04/27/2025 Start: 04-27-2024 End: 04-27-2025 US Pelvis transvaginal US OB transvaginal Imaging Routine Missed menses Expected: 04/27/2024 (Approximate), Expires: 04/27/2025 [facility] Comment on above: Expected: 04/27/2024 (Approximate), Expires: 04/27/2025 Start: 03-11-2024 Influenza vaccination Influenza Vacc ine (#1) [facility] Bacteria identified in Urine by Culture Urine culture Microbiology Routine Missed menses Ordered: 04/27/2024 [facility] Comment on above: Ordered: 04/27/2024 CBC W Auto Different ial panel - Blood CBC and differential Lab Routine Missed menses , unspecified gestational age Ordered: 04/27/2024 [facility] Comment on above: Ordered: 04/27/2024 CHLAMYDIA TRACHOMATI S (GENITO/STI) CHLAMYDIA TRACHOMATIS (GENITO/STI) Lab Routine Exposure to STD Ordered: 06/25/2024 [facility] Comment on above: Ordered: 06/25/2024 Cytology Cervical or vaginal smear or scraping study Pap Smear Pathology and Cytology Routine Well woman exam with routine gynecological exam Ordered: 06/25/2024 [facility] Work Phone: Comment on above: Ordered: 06/25/2024 Hemoglobin A1c/Hemoglobin.total in Blood Hemoglobin A1c Lab Routine Missed menses , unspecified gestational age Ordered: 04/27/2024 [facility] Comment on above: Ordered: 04/27/2024 Hepatitis B virus surface Ag [Presence] in Serum or Plasma by Immunoassay Hepatitis B surface antigen Lab Routine Missed menses , unspecified gestational age Ordered: 04/27/2024 [facility] Comment on above: Ordered: 04/27/2024 Hepatitis C virus Ab [Presence] in Serum or Plasma by Immunoassay Hepatitis C antibody Lab Routine Missed menses , unspecified gestational age Ordered: 04/27/2024 [facility] Comment on above: Ordered: 04/27/2024 HIV-1/HIV-2 antigen/antibody combination immunoassay HIV-1 and HIV-2 antibodies Lab Routine Missed menses , unspecified gestational age Ordered: 04/27/2024 [facility] Comment on above: Ordered: 04/27/2024 Neisseria gonorrhoea e DNA [Presence] in Unspecified specimen by CEDRICK with probe detection Neisseria gonorrhea DNA probe, direct Lab Routine Exposure to STD Ordered: 06/25/2024 [facility] Comment on above: Ordered: 06/25/2024 Reagin Ab [Presence] in Serum by RPR RPR Lab Routine Missed menses , unspecified gestational age Ordered: 04/27/2024 [facility] Comment on above: Ordered: 04/27/2024 Rubella antibody, IgG Rubella an tibody, IgG Lab Routine Missed menses , unspecified gestational age Ordered: 04/27/2024 [facility] Comment on above: Ordered: 04/27/2024 SURESWAB(R) ADVANCED VAGINITIS PLUS, TMA SURESWAB(R) ADVANCED VAGINITIS PLUS, TMA Pathology and Cytology Routine Vaginal discharge Ordered: 06/25/2024 [facility] Comment on above: Ordered: 06/25/2024 Payers Date Payer Category Payer [facility] [id number] [id number] 2018 Unknown [id number] 1995 Unknown [id number] 2.16.84 [id number] 1995 Unknown [id number] 2.16.84 [id number] 1995 Unknown [id number] 2.16.84 [id number] 1995 Unknown [id number] 2.16.84 [id number] 1995 Unknown [id number] 2.16.84 [id number] 1995 Unknown [id number] 2.16.84 [id number] Social History Date Type Detail Facility [place] [facility] Tobacco smoking consumption unknown [facility] Healthcare Start: 02-27-2024 [facility] Start: 1995 Sex assigned at Not on file [facility] Gender identity Not on file [facility] are History of Present illness Narrative 08-21-2024 MAURO Quesada - 08/21/2024 1:00 PM EST Note Date & Type Note Facility 08-21-2024 History of Presen t illness Narrative Reason for Appointment: Patient ID: Alisha Batista is a 28 y.o. female who presents for Routine Visit Patient presents today for Return OB appointment. MEDICATIONS Current Outpatient Medications Medication Instructions iron polysaccharides (PROFE) 391.3 mg, Oral, Daily ALLERGIES Allergies Allergen Reactions Shrimp (Diagnostic) PROBLEMS [...] weight on file to calculate BMI. BP: 102/68 Patient's last menstrual period was 02/13/2024. ASSESSMENT & PLAN ICD-10-CM 1. Encounter for follow-up ultrasound of anatomy Z36.2 US OB limited 1+ fetuses 2. Second trimester Z34.92 3. 27 weeks gestation of Z3A.27 Return OB: Patient presents today for a routine obstetrics appointment. Patient is currently 27w1d . Patient states she is doing well but has complaints of being tired due to current . Patient has verbalizes frequent movement. labor precautions was discussed/given and patient was instructed to perform kick counts three times a day. Orders Placed This Encounter Procedures US OB limited 1+ fetuses Follow Up: Patient is to return to office in 2 week for routine OB appointment. Documented by MAURO Quesada on behalf of: MAURO Quesada documented in this encounter [facility] History of Present illness Narrative 07-24-2024 Rema EspinozaDEE - 07/24/2024 2:20 PM EST Note Date [...] nursing note reviewed. Exam conducted with a special education classroom aide present. Vitals: There is no height or [...] obtained without difficulty and patient was given [facility] order to have obtained. Orders [...] nursing note reviewed. Exam conducted with a special education classroom aide present. Vitals: There is no height or [...] obtained without difficulty and patient was given [facility] order to have obtained. Orders [...] History of Present illness Narrative 05-28-2024 Neetu EllynDEE bauman - 05/28/2024 1:40 PM EST Note Date [...] nursing note reviewed. Exam conducted with a special education classroom aide present. Vitals: There is no height or [...] and stay away from [facility]. Patient has been consulted regarding any further [...] and stay away from [facility]. Patient has also been advised to not [...] by: Sophy Bhakta documented in this encounter [facility] Evaluation note Note Date & Type [...] examination documented in this encounter [facility] Evaluation note Note Date & Type Note Facility Evaluation note Diagnosis 23 weeks gestation of Second trimester state, incidental Diabetes mellitus screening Screening for diabetes mellitus Constipation, unspecified constipation type documented in this encounter [facility] Evaluation note Note Date & Type Note Facility Evaluation note Diagnosis Encounter for follow-up ultrasound of anatomy Second trimester state, incidental 27 weeks gestation of documented in this encounter [facility] Summary Purpose Family History No Family History Records FoundNo Family History Records Found Advance Directives No Advanced Directives Records FoundNo Advanced Directives Records Found Additional Source Comments INFORMATION SOURCE (unrecogn ized section and content) DATE CREATED AUTHOR 02/18/2021 [facility] DATE CREATED AUTHOR AUTHOR'S ORGANIZ ATION 08/23/2024 [facility] EPIC Reason for Visit (unrecogniz ed section and content) Reason Comments Initial Visit Reason Comments Routine Visit Care Teams (unrecognized sec tion and content) Vault Manager Relationship Specialty Start Date End Date Steffen Guillaume MD [address] [address] PCP - General Family Medicine 11/16/22 Vault Manager Relationship Specialty Start Date End Date Steffen Guillaume MD 112 [facility] [address] [place] [address] PCP - General Family Medicine 11/16/22 Vault Manager Relationship Specialty Start Date End Date Steffen Guillaume MD [address] [address] PCP - General Family Medicine 11/16/22 Vault Manager Relationship Specialty Start Date End Date Steffen Guillaume MD [address] [facility] [address] [place] [address] PCP - General Family Medicine 11/16/22 Vault Manager Relationship Specialty Start Date End Date Steffen Guillaume MD [address] [facility] [address] [place] [address] PCP - General Family Medicine 11/16/22 Vault Manager Relationship Specialty Start Date End Date Steffen Guillaume MD [address] [facility] [address] [place] [address] PCP - General Family Medicine 11/16/22 Vault Manager Relationship Specialty Start Date End Date Steffen Guillaume MD [address] [facility] [address] [place] [address] PCP - General Family Medicine 11/16/22 Vault Manager Relationship Specialty Start Date End Date Steffen Guillaume MD [address] [facility] [address] [place] [address] PCP - General Family Medicine 11/16/22 FOR [...] BE BASED ON THE PRIMARY CLINICAL RECORDS. [facility] [employer] [facility]. provides no warranty or guarantee of the accuracy or completeness of information in this document.
[2024-08-24 11:17] LABS: Glucose Fasting 96 mg/dL (<95)
[2024-08-24 11:45] LABS: Glucose 1 Hour 189 mg/dL (<180)
[2024-08-24 12:34] LABS: Glucose 2 Hour 149 mg/dL (<155)
[2024-08-24 13:29] LABS: Glucose 3 Hour 119 mg/dL (<140)
== END 2024-08-24 10:00 | disposition home or self-care (01) ==
LOC: LAB 09:59
PROVIDERS: PCP Family Medicine; Visit Provider Obstetrics & Gynecology
DX: O26.893 Other specified pregnancy related conditions, third trimester (principal); R73.09 Other abnormal glucose
CPT/HCPCS: 36415; 82951; 82952

== ENCOUNTER 2024-09-13 08:04 | Outpatient (OUT) | payer BC, SELFPAY ==
--- OUTSIDE RECORDS SUMMARY | 2024-09-13 08:25 | XMS_ITS | CCD ---
Author Organization [facility] Care Team Providers Care Take Down Inspector Name Role Phone Steffen Guillaume MD Primary Care Provider ZOEY MCNEILL Attending Unavailable WALE COX Attending Unavailable AWLE COX Attending Unavailable ZOEY MCNEILL Attending Unavailable WALE COX Attending Unavailable Allergies Allergy Classification Reported Allergen(s) Allergy Type Date of Onset Reaction(s) Facility (20 sources) Shrimp product Propensity to adverse reactions 4 [facility] Medications Current Medications Medication Drug Class(es) Dates Sig (Normalized) Sig (Original) Blood Glucose Monitoring Suppl (D-Care Glucometer) w/Device kit (3 sources) Start: 08-30-2024 End: 08-30-2025 Blood Glucose Monitoring Suppl (D-Care Glucometer) w/Device kit Indications: Gestational diabetes mellitus (GDM), antepartum, gestational diabetes method of control unspecified , Elevated glucose tolerance test 1 kit Daily Use four times daily to check FSBS. In the morning prior to breakfast & 1 hour after each meal for a total of 4times daily. 1 kit 08/30/2024 08/30/2025 Active docusate sodium 100 mg oral capsule (2 sources) Start: 07-24-2024 End: 08-03-2024 take 1 capsule by mouth twice daily as needed for constipation docusate sodium (Colace) 100 MG capsule Indications: Constipation, unspecified constipation type Take 1 capsule (100 mg) by mouth 2 (two) times a day as needed for constipation for up to 10 days 30 capsule 5 07/24/2024 08/03/2024 Active isopropyl alcohol 0.7 ml/ml medicated pad (3 sources) Start: 08-30-2024 Alcohol Swabs (Alcohol Prep Pad) 70 % pads Indications: Gestational diabetes mellitus (GDM), antepartum, gestational diabetes method of control unspecified , Elevated glucose tolerance test Apply 1 Pad topically Daily Use four times daily to check FSBS. 150 each 3 08/30/2024 Active polysaccharide iron complex 391 mg oral capsule (7 sources) Start: 08-07-2024 End: 08-07-2025 take 1 capsule by mouth once daily iron polysaccharides (ProFe) 391.3 (180 Fe) MG capsule Indications: Anemia during in second trimester Take 1 capsule (391.3 mg) by mouth Daily 30 capsule 11 08/07/2024 08/07/2025 Active Problems Active Problems Problem Classification Problem Date Documented Da te Episodic/Chronic Diabetes or abnormal glucose tolerance complicating ; childbirth; or the puerperium (2 sources) Gestational diabetes mellitus; Translations: [Gestational diabetes mellitus in , unspecified control] 09-05-2024 Episodic Hemorrhage during ; abruptio placenta; placenta previa (11 sources) Placenta previa marginalis; Translations: [Partial placenta previa NOS or without hemorrhage, unspecified trimester] Onset: 07-05-2024 07-05-2024 Episodic Immunizations and screening for infectious disease (2 sources) Exposure to sexually transmissible disorder; Translations: [Contact with and (suspected) exposure to infections with a predominantly sexual mode of transmission] 06-25-2024 Episodic Menstrual disorders (1 source) Missed period; Translations: [Irregular menstruation, unspecified] 04-27-2024 Chronic Other female genital disorders (2 sources) Vaginal discharge; Translations: [Other specified noninflammatory disorders of vagina] 06-25-2024 Episodic Other gastrointestinal disorders (2 sources) Constipation; Translations: [Constipation, unspecified] 07-24-2024 Episodic Other and delivery including normal (20 sources) ; Translations: [Encounter for supervision of normal , unspecified, unspecified trimester] Onset: 05-28-2024 04-27-2024 Episodic Residual codes; unclassified (2 sources) Gestation period, 19 weeks; Translations: [19 weeks gestation of ] 06-25-2024 Episodic Residual codes; unclassified (2 sources) Gestation period, 23 weeks; Translations: [23 weeks gestation of ] 07-24-2024 Episodic Residual codes; unclassified (2 sources) Gestation period, 27 weeks; Translations: [27 weeks gestation of ] 08-21-2024 Episodic Residual codes; unclassified (2 sources) Gestation period, 29 weeks; Translations: [29 weeks gestation of ] 09-05-2024 Episodic Past or Other Problems Problem Classification Problem Date Documented Da te Episodic/Chronic Other complications of (20 sources) Headache; Translations: [Other specified related conditions, unspecified trimester] Onset: 05-28-2024 05-28-2024 Episodic Other screening for suspected conditions (not mental disorders or infectious disease) (20 sources) Patient encounter status; Translations: [Encounter for other specified screening] Onset: 05-28-2024 05-28-2024 Episodic Residual codes; unclassified (20 sources) Gestation period, 15 weeks; Translations: [15 weeks gestation of ] Onset: 05-28-2024 05-28-2024 Episodic Results Test Name Value Interpretation Reference Range Facility Urinalysis macro (dipstick) panel (U)on 09-05-2024 Bilirubin, UA Negative Negative - 4(70) +++ mg/dL [facility] Blood, UA Negative Negative - 50 Calderon/mcL [facility] Clarity, UA Clear [facility] Color, UA Micaela [facility] Glucose, UA Positive Negative - 1999(110) ++++ mg/dL [facility] Comment on above: 100 Interpretation and review of laboratory results Abnormal [facility] Ketones, UA Negative Negative - 160(16) ++++ mg/dL [facility] Leukocytes, UA Positive Negative - 500+++ Eyal/mcL [facility] Comment on above: small Nitrite, UA Negative Negative - Positive [facility] pH, UA 6 5 - 9 [facility] Protein, UA Negative Negative - 1999(20) ++++ mg/dL [facility] Spec Grav, UA 1.01 1 - 1.03 [facility] Urobilinogen, UA 0.2 0.2 - 12 mg/dL [facility] US OB LIMITED 1+ FETUSESon 0 - US OB LIMITED 1+ FETUSES EXAM: US OB LIMITED 1+ FETUSES HISTORY: Follow up anatomy. COMPARISON: OB ultrasound 08/02/2024. TECHNIQUE: Two-dimensional transabdominal grayscale ultrasound imaging of the pelvis was performed. FINDINGS: Gestation: Single Presentation: Cephalic Cardiac Activity: 134 beats per minute Placental Location: Anterior with no sonographic abnormalities identified. Cervical canal: Not visualized Amniotic Fluid: Appears adequate ANATOMY C-Spine: Unremarkable T-Spine: Unremarkable L-Spine: Unremarkable Sacrum: Unremarkable Kidneys: Unremarkable Diaphragm: Unremarkable IMPRESSION: 1. Single, live intrauterine gestation 28 weeks, 0 days by LMP. HILLARY is 11/19/2024. 2. Unremarkable follow up anatomy, as described above. Electronically Signed:Electronically signed by JUAN JOSÉ MCCANN II, MD, PHD at 29-Aug-2024 08:00:42 AM [facility] Normal Not Available Comment on above: Order Comment: US OB INCOMPLETE ANATOMY Estimated Date of Delivery: 11/19/24 Gestational Age as of 08/21/2024: 28w0d GLUCOSE TOLERANCE 3 HOURon 0 08-24-2024 GLUCOSE TOLERANCE 3 HOUR High mg/dL [facility] Comment on above: GLU FAST 96H (<95) C ol: 08/24/24 1004 GLU 1HR 189H (<180) Col: 08/24/24 1105 GLU 2HR 149 (<155) Col: 08/24/24 1207 GLU 3HR 119 (<140) Col: 08/24/24 1308 Interpretation and review of laboratory results Abnormal [facility] e US OB LIMITED 1+ FETUSESon 0 08-02-2024 [...] UA Negative Negative - 4(70) +++ mg/dL [facility] Blood, UA Negative Negative - 50 Calderon/mcL [facility] Clarity, UA Clear [facility] re Color, UA Yellow [facility] Glucose, UA Negative Negative - 1999(110) ++++ mg/dL [facility] Interpretation and review of laboratory results Abnormal [facility] Ketones, UA Negative Negative - 160(16) ++++ mg/dL [facility] Leukocytes, UA Trace Negative - 500+++ Eyal/mcL [facility] Nitrite, UA Negative Negative - Positive [facility] pH, UA 7 5 - 9 [facility] Protein, UA Negative Negative - 1999(20) ++++ mg/dL [facility] Spec Grav, UA 1.02 1 - 1.03 [facility] Urobilinogen, UA 0.2 0.2 - 12 mg/dL [facility] AFP, SERUM, OPEN SPINA BIFID Aon 07-16-2024 AFP MOM 1.03 . [facility] e AFP VALUE 76.2 ng/mL . [facility] COMMENT: Comment . [facility] e Comment on above: Winifred Burch , Ph.D., [facility] Director References: Available Upon Request. Multiples Of Median Cutoffs For AFP Elevations Moffett 2.5 Black 2.8 IDD 2.0 Twins 4.5 Abbreviation Definitions IDD - Insulin Dep Diabetes OSBR - Open Spina Bifida Risk For further inquiries contact [employer] at [phone]. This test was developed and its performance characteristics determined by [employer]. It has not been cleared or approved by the Food and Drug Administration. Performed at: [address] [place], [place] [id number] Kitchen Mechanic: Babita Carranza [facility], Phone: [phone] GEST. AGE ON COLLECTION DATE 21.6 . weeks [facility] GESTAT. AGE BASED ON LMP . [facility] Comment on above: Recalculations are n ot recommended when gestational dating by LMP and ultrasound are within 10 days. INSULIN DEP DIABETES No . [facility] INTERPRETATION Comment . [facility] Healt hcare Comment on above: Interpretation: Scre en Negative [...] Customer Services to discuss available options. The [place] recommends amniocentesis be offered to women age 35 and older. [age]ARY [age] [facility] MULTIPLE GESTATION No . [facility] [place] [address] [place] [address] . [facility] Healt hcare RACE Other . [facility] [employer] RESULTS Report . [facility] [employer] TEST RESULTS: Negative . [facility] Health care WEIGHT 135 . lbs [facility] [employer] N N LMP [id number] 19 N 1 Y 135 N N N N N Other Race [facility] [employer] IGP,APTIMA HPV,AGE GDLNon AGE GDLN ACOG TESTING Note . [facility] Comment on above: TESTS RESULT FLAG UN ITS REF RANGE LAB Clinician Provided Cytology Information Source.............Cervix Other.............. No. of containers..01 ThinPrep Vial Age Algo ACOG Bettye... -08 08 FLAG LEGEND: L-Low Normal,H-High Normal,LL-Alert Low,HH-Alert High <-Panic Low,>-Panic High,A-Abnormal,AA-Critical Abnormal Performed at: 01 =G [facility] [place] [address] [facility] [place] [address] Grecia Wright MD, IGP, RFX APTIMA HPV ASCU Note . [facility] Comment on above: TESTS RESULT FLAG UN ITS REF RANGE LAB DIAGNOSIS: 02 NEGATIVE FOR INTRAEPITHELIAL LESION OR MALIGNANCY. Specimen adequacy: 02 Satisfactory for evaluation. No endocervical component is identified. An endocervical component is not commonly seen in the patient. Performed by: Claribel Minor, Health And Human Performance Professor ([facility]) . 02 Note: Note 02 The Pap [...] High,A-Abnormal,AA-Critical Abnormal Performed at: 02 WB [facility] [place] [address] [place] [address] Grecia Wright MD, Performed at: = - [facility] [id number] Kitchen Mechanic: Grecia Wright MD, Phone: [phone] Performed at: - [facility] [id number] Kitchen Mechanic: Grecia Wright MD, Phone: [phone] SPATULA-ALONE CERVIX [facility] Healthcar e RECURRENT VAGINITIS (HTRX)on 06-26-2024 ATOPOBIUM VAGINAE 15.84 Abnormal [facility] ATOPOBIUM VAGINAE Detected Abnormal [facility] BVAB 2,3 (BACTERIAL VAGINOSIS ASSOCIATED BACTERIA 2, 3); MOBILUNCUS SPP 24.558 Abnormal [facility] Healthcare BVAB 2,3 (BACTERIAL VAGINOSIS ASSOCIATED BACTERIA 2, 3); MOBILUNCUS SPP Detected Abnormal [facility] Healthcare SOHAM ALBICANS, PARAPSILOSIS, TROPICALIS 0 [facility] SOHAM ALBICANS, PARAPSILOSIS, TROPICALIS Not detected [facility] Healthcare SOHAM GLABRATA 0 [facility] Hea lthcare SOHAM GLABRATA Not detected [facility] SOHAM KRUSEI 0 [facility] Healt hcare SOHAM KRUSEI Not detected [facility] CHLAMYDIA TRACHOMATIS 0 [facility] Healthcare CHLAMYDIA TRACHOMATIS Not detected [facility] GARDNERELLA VAGINALIS 21.394 Abnormal [facility] GARDNERELLA VAGINALIS Detected Abnormal [facility] Interpretation and review of laboratory results Abnormal [facility] Healthcare MEGASPHAERA (TYPES 1, 2) 0 [facility] Healthcare MEGASPHAERA (TYPES 1, 2) Not detected [facility] MYCOPLASMA GENITALIUM 0 [facility] MYCOPLASMA GENITALIUM Not detected [facility] NEISSERIA GONORRHOEAE 0 [facility] NEISSERIA GONORRHOEAE Not detected [facility] TET B, TET M 18.181 Abnormal [facility] Healthc are TET B, TET M Detected Abnormal [facility] Healthc are TRICHOMONAS VAGINALIS 0 [facility] TRICHOMONAS VAGINALIS Not detected [facility] Urinalysis macro (dipstick) panel (U)on 06-25-2024 Bilirubin, UA Negative Negative - 4(70) +++ mg/dL [facility] Blood, UA Negative Negative - 50 Calderon/mcL [facility] Clarity, UA Clear [facility] Color, UA Yellow [facility] Glucose, UA Negative Negative - 1999(110) ++++ mg/dL [facility] Interpretation and review of laboratory results Abnormal [facility] Ketones, UA Negative Negative - 160(16) ++++ mg/dL [facility] Leukocytes, UA Trace Negative - 500+++ Eyal/mcL [facility] Nitrite, UA Negative Negative - Positive [facility] pH, UA 6 5 - 9 [facility] e Protein, UA Negative Negative - 1999(20) ++++ mg/dL [facility] Spec Grav, UA 1.01 1 - 1.03 [facility] Urobilinogen, UA 0.2 0.2 - 12 mg/dL [facility] Healthcar e Urinalysis macro (dipstick) panel (U)on 05-28-2024 Bilirubin, UA Negative Negative - 4(70) +++ mg/dL [facility] Blood, UA Negative Negative - 50 Calderon/mcL [facility] Clarity, UA Clear [facility] re Color, UA Yellow [facility] e Glucose, UA Negative Negative - 1999(110) ++++ mg/dL [facility] Interpretation and review of laboratory results Normal [facility] Ketones, UA Negative Negative - 160(16) ++++ mg/dL [facility] Leukocytes, UA Negative Negative - 500+++ Eyal/mcL [facility] Nitrite, UA Negative Negative - Positive [facility] pH, UA 7 5 - 9 [facility] Protein, UA Negative Negative - 1999(20) ++++ mg/dL [facility] Spec Grav, UA 1.015 1 - 1.03 [facility] Urobilinogen, UA 0.2 0.2 - 12 mg/dL [facility] Health[facility] e ALL CBC WITH AUTO DIFFon BASOPHILS ABSOLUTE AUTO 0 [facility] Basophils/100 WBC (Bld) 0.2 % 0.2 - 2.0 % [facility] Eosinophils/100 WBC (Bld) 1.1 % 0.9 - 7.0 % [facility] Erythrocyte distribution width (RBC) [Ratio] 12.2 % 11.0 - 15.0 % [facility] Hematocrit (Bld) [Volume fraction] 36.9 % 36.0 - 48.0 % [facility] e Hemoglobin (Bld) [Mass/Vol] 12.8 g/dL 12.0 - 16.0 g/dL [facility] IMMATURE GRANULOCYTES ABS AUTO 0.03 [facility] Immature granulocytes/100 WBC (Bld) 0.3 % 0.0 - 0.5 % [facility] Interpretation and review of laboratory results Abnormal [facility] LYMPHOCYTES ABSOLUTE AUTO 1.8 [facility] Lymphocytes/100 WBC (Bld) 19.8 % Low 20.5 - 60.0 % [facility] MCH (RBC) [Entitic mass] 29.9 pg 26.7 - 34.0 pg [facility] MCHC (RBC) [Mass/Vol] 34.7 g/dL 29.9 - 35.2 g/dL [facility] MCV (RBC) [Entitic vol] 86.2 fL 81.0 - 99.0 fL [facility] MONOCYTES ABSOLUTE AUTO 0.5 [facility] Monocytes/100 WBC (Bld) 5.5 % 1.7 - 12.0 % [facility] NEUTROPHILS ABSOLUTE AUTO 6.5 [facility] Neutrophils/100 WBC (Bld) 73.1 % 43.0 - 75.0 % [facility] Platelet mean volume (Bld) [Entitic vol] 9.4 fL Low 9.5 - 13.5 fL [facility] EO # 0.1 [facility] e TB PLT 309 [facility] e [facility] RBC 4.28 [facility] WBC 9 [facility] e HCG ( test) Ql (U)o n 04-27-2024 Interpretation and review of laboratory results Abnormal [facility] Preg Test, Ur Positive [facility] care [facility] Health[facility] e Urinalysis macro (dipstick) panel (U)on 04-27-2024 Bilirubin, UA Negative Negative - 4(70) +++ mg/dL [facility] Blood, UA Negative Negative - 50 Calderon/mcL [facility] Clarity, UA Clear [facility] re Color, UA Yellow [facility] Glucose, UA Negative Negative - 2000(110) ++++ mg/dL [facility] Interpretation and review of laboratory results Abnormal [facility] Ketones, UA Negative Negative - 160(16) ++++ mg/dL [facility] Leukocytes, UA Trace Negative - 500+++ Eyal/mcL [facility] Nitrite, UA Negative Negative - Positive [facility] pH, UA 7.5 5 - 9 [facility] Protein, UA Negative Negative - 1999(20) ++++ mg/dL [facility] Spec Grav, UA 1.02 1 - 1.03 [facility] Urobilinogen, UA 0.2 0.2 - 12 mg/dL [facility] Health[facility] e Registrationon 02-17-2021 Registration [id number]# 1.00CD:127 [facility] Consent for Treatmenton Consent for Treatment [id number]# 1.00CD:127 [facility] Vital Signs Date Time Vital Sign Value Performing Clinician Layne armando 09-05-2024 13:56-0500 Body weight 65.23 kg Wale Kenny DO Work Phone: [facility] 09-05-2024 13:56-0500 Diastolic blood pressure 60 mm[Hg] Wale Kenny DO Work Phone: [facility] 09-05-2024 13:56-0500 Systolic blood pressure 118 mm[Hg] Wale Kenny DO Work Phone: [facility] 08-21-2024 13:34-0500 Body weight 64.41 kg Zoey WADE Work Phone: [facility] 08-21-2024 13:34-0500 Diastolic blood pressure 68 mm[Hg] Zoey WADE Work Phone: [facility] 08-21-2024 13:34-0500 Systolic blood pressure 102 mm[Hg] Zoey WADE Work Phone: [facility] 07-24-2024 14:29-0500 Body weight 64.32 kg Wale Kenny DO Work Phone: [facility] 07-24-2024 14:29-0500 Diastolic blood pressure 72 mm[Hg] Wale Kenny DO Work Phone: [facility] 07-24-2024 14:29-0500 Systolic blood pressure 100 mm[Hg] Wale Kenny DO Work Phone: [facility] 06-25-2024 14:52-0500 Body weight 61.15 kg Zoey WADE Work Phone: [facility] 06-25-2024 14:52-0500 Diastolic blood pressure 70 mm[Hg] Zoey WADE Work Phone: [facility] 06-25-2024 14:52-0500 Systolic blood pressure 104 mm[Hg] Zoey WADE Work Phone: [facility] 05-28-2024 14:27-0500 Body weight 59.88 kg Wale Kenny DO Work Phone: [facility] 05-28-2024 14:27-0500 Diastolic blood pressure 62 mm[Hg] Wale Kenny DO Work Phone: [facility] 05-28-2024 14:27-0500 Systolic blood pressure 100 mm[Hg] Wale Kenny DO Work Phone: [facility] 04-27-2024 10:48-0400 Body weight 57.61 kg [facility] 04-27-2024 10:48-0400 Diastolic blood pressure 68 mm[Hg] [facility] 04-27-2024 10:48-0400 Systolic blood pressure 100 mm[Hg] [facility] Encounters Encounter Date Encounter Type Care Provider Facility Start: 09-05-2024 End: 09-05-2024 Bamboo flowsheet Wale Kenny DO Work Phone: [facility] Start: 09-05-2024 End: 09-05-2024 Bamboo flowsheet Wale Kenny DO Work Phone: [facility] Start: 09-05-2024 End: 09-05-2024 ambulatory WALE KENNY Not Available Start: 09-05-2024 End: 09-05-2024 flow sheet Wale Kenny DO Work Phone: [facility] Comment on above: 29 weeks gestation o f ; Third trimester ; Gestational diabetes mellitus (GDM), antepartum, gestational diabetes method of control unspecified Start: 08-27-2024 End: 08-27-2024 ambulatory ZOEY MCNEILL Not Available Start: 08-24-2024 End: 08-24-2024 [facility] Result Encounter Wale Kenny DO Work Phone: [facility] Unsolicited Start: 08-24-2024 End: 08-24-2024 [facility] Result Encounter Wale Kenny DO Work Phone: [facility] External Department Unsolicited Start: 08-21-2024 End: 08-21-2024 Bamboo flowsheet Zoey WADE Work Phone: [facility] Start: 08-21-2024 End: 08-21-2024 Bamboo flowsheet Zoey WADE Work Phone: [facility] Start: 08-21-2024 End: 08-21-2024 ambulatory ZOEY MCNEILL Not Available Start: 08-21-2024 End: 08-21-2024 flow sheet Zoey WADE Work Phone: [facility] Comment on above: Encounter for follow -up ultrasound of anatomy; Second trimester ; 27 weeks gestation of Start: 08-02-2024 End: 08-02-2024 ambulatory ZOEY MCNEILL Not Available Start: 07-24-2024 End: 07-24-2024 flow sheet Wale Kenny DO Work Phone: [facility] Comment on above: 23 weeks [...] Patient encounter procedure Zoey WADE Work Phone: [facility] Start: 06-25-2024 End: 06-25-2024 flow sheet Zoey WADE Work Phone: [facility] Comment on above: 19 weeks [...] Date Procedure Procedure Detail Performing Clinician Start: 09-05-2024 Urnls dip stick/tabl et rgnt non-auto w/o micrscp Wale Kenny DO Work Phone: Start: 08-24-2024 GLUCOSE TOLERANCE 3 HOUR Generic External Data Provider Start: 07-24-2024 Urnls dip stick/tabl et rgnt [...] Treatment Date Care Activity Detail Author Start: 09-19-2024 End: 09-19-2024 Patient encounter procedure 09/19/2024 3:20 PM EDT Routine [facility] [address] [place] [address] Zoey Mcneill PA [address] [place], [place] [id number] [facility] Start: 09-19-2024 End: 09-19-2024 Professional / ancillary services management 09/19/2024 2:00 PM EDT Ancillary Procedure [facility] [address] [place] [address] [facility] Start: 09-05-2024 End: 09-05-2024 Patient encounter procedure 09/05/2024 1:50 PM EST Routine [facility] [address] [place] [address] Wale Cox DO [address] [place] [address] [facility] Start: 08-27-2024 End: 08-27-2024 Professional / ancillary services management 08/27/2024 12:30 PM EST Ancillary Procedure [facility] [address] [place] [address] [facility] Start: 08-21-2024 End: 08-21-2025 US for US OB limited 1+ fetuses Imaging Routine Encounter for follow-up ultrasound of anatomy Expected: 08/21/2024, Expires: 08/21/2025 [facility] Work Phone: Comment on above: Expected: 08/21/2024 , Expires: 08/21/2025 Start: 08-21-2024 End: 08-21-2024 Patient encounter procedure 08/21/2024 1:00 PM EST Routine [facility] [address] [place] [id number] Zoey Mcneill PA [address] [place], [place] [id number] [facility] Start: 08-02-2024 End: 08-02-2024 Professional / ancillary services management 08/02/2024 10:30 AM EST Ancillary Procedure [facility] [address] [place] [address] [facility] Start: 07-24-2024 End: 07-24-2024 Patient [...] mellitus screening Expected: 07/24/2024 (Approximate), Expires: 07/24/2025 [facility] Comment on above: Expected: 07/24/2024 (Approximate), Expires: [...] anatomic survey Expected: 06/25/2024 (Approximate), Expires: 06/25/2025 [facility] Comment on above: Expected: 06/25/2024 (Approximate), Expires: 06/25/2025 Start: 05-28-2024 End: 05-28-2025 US for US OB ANATOMY SINGLE W US OB CERVICAL LENGTH Imaging Routine Second trimester Screening, , for anatomic survey Expected: 05/28/2024 (Approximate), Expires: 05/28/2025 [facility] Work Phone: Comment on above: Expected: 05/28/2024 (Approximate), Expires: 05/28/2025 Start: 05-28-2024 End: 05-28-2024 Patient encounter procedure 05/28/2024 1:40 PM EST Routine [facility] [address] [place] [address] Wale Cox DO [address] [place] [address] [facility] Start: 04-27-2024 End: 04-27-2025 ABO/Rh ABO/Rh Lab Routine Missed menses , unspecified gestational age Expected: 04/27/2024 (Approximate), Expires: 04/27/2025 [facility] Comment on above: Expected: 04/27/2024 (Approximate), Expires: 04/27/2025 Start: 04-27-2024 End: 04-27-2025 Blood type and Indirect antibody screen panel - Blood Type and screen Lab Routine Missed menses , unspecified gestational age Expected: 04/27/2024 (Approximate), Expires: 04/27/2025 [facility] Work Phone: Comment on above: Expected: 04/27/2024 (Approximate), Expires: 04/27/2025 Start: 04-27-2024 End: 04-27-2025 Drugs of abuse panel - Urine by Screen method Rapid drug screen, urine Lab Routine , unspecified gestational age Encounter for supervision of normal first in first trimester Expected: 04/27/2024 (Approximate), Expires: 04/27/2025 [facility] Comment on above: Expected: 04/27/2024 (Approximate), Expires: 04/27/2025 Start: 04-27-2024 End: 04-27-2025 US Pelvis transvaginal US OB transvaginal Imaging Routine Missed menses Expected: 04/27/2024 (Approximate), Expires: 04/27/2025 [facility] Comment on above: Expected: 04/27/2024 (Approximate), Expires: 04/27/2025 Start: 03-11-2024 Influenza vaccination Influenza Vacc ine (#1) [facility] Bacteria identified in Urine by Culture Urine culture Microbiology Routine Missed menses Ordered: 04/27/2024 [facility] Comment on above: Ordered: 04/27/2024 CBC W Auto Different ial panel - Blood CBC and differential Lab Routine Missed menses , unspecified gestational age Ordered: 04/27/2024 [facility] Comment on above: Ordered: 04/27/2024 CHLAMYDIA TRACHOMATI S (GENITO/STI) CHLAMYDIA TRACHOMATIS (GENITO/STI) Lab Routine Exposure to STD Ordered: 06/25/2024 [facility] Comment on above: Ordered: 06/25/2024 Cytology Cervical or vaginal smear or scraping study Pap Smear Pathology and Cytology Routine Well woman exam with routine gynecological exam Ordered: 06/25/2024 [facility] Work Phone: Comment on above: Ordered: 06/25/2024 Hemoglobin A1c/Hemoglobin.total in Blood Hemoglobin A1c Lab Routine Missed menses , unspecified gestational age Ordered: 04/27/2024 [facility] Comment on above: Ordered: 04/27/2024 Hepatitis B virus surface Ag [Presence] in Serum or Plasma by Immunoassay Hepatitis B surface antigen Lab Routine Missed menses , unspecified gestational age Ordered: 04/27/2024 [facility] Comment on above: Ordered: 04/27/2024 Hepatitis C virus Ab [Presence] in Serum or Plasma by Immunoassay Hepatitis C antibody Lab Routine Missed menses , unspecified gestational age Ordered: 04/27/2024 [facility] Comment on above: Ordered: 04/27/2024 HIV-1/HIV-2 antigen/antibody combination immunoassay HIV-1 and HIV-2 antibodies Lab Routine Missed menses , unspecified gestational age Ordered: 04/27/2024 [facility] Comment on above: Ordered: 04/27/2024 Neisseria gonorrhoea e DNA [Presence] in Unspecified specimen by CEDRICK with probe detection Neisseria gonorrhea DNA probe, direct Lab Routine Exposure to STD Ordered: 06/25/2024 [facility] Comment on above: Ordered: 06/25/2024 Reagin Ab [Presence] in Serum by RPR RPR Lab Routine Missed menses , unspecified gestational age Ordered: 04/27/2024 [facility] Comment on above: Ordered: 04/27/2024 Rubella antibody, IgG Rubella an tibody, IgG Lab Routine Missed menses , unspecified gestational age Ordered: 04/27/2024 [facility] Comment on above: Ordered: 04/27/2024 SURESWAB(R) ADVANCED VAGINITIS PLUS, TMA SURESWAB(R) ADVANCED VAGINITIS PLUS, TMA Pathology and Cytology Routine Vaginal discharge Ordered: 06/25/2024 [facility] Comment on above: Ordered: 06/25/2024 End: 09-05-2025 US for US OB follow up transabdominal approach Imaging Routine Gestational diabetes mellitus (GDM), antepartum, gestational diabetes method of control unspecified [id number] for 4 Occurrences starting 09/05/2024 until 09/05/2025 [facility] Work Phone: Comment on above: [email or web address] for 4 Occurr ences starting 09/05/2024 until 09/05/2025 Payers Date Payer Category Payer [facility] [id number] 2018 Unknown [id number] 1995 Unknown [id number] 2.16.84 [id number] 1995 Unknown [id number] 2.16.84 [id number] 1995 Unknown [id number] 2.16.84 [id number] 1995 Unknown [id number] 2.16.84 [id number] 1995 Unknown [id number] 2.16.84 [id number] 1995 Unknown [id number] 2.16.84 [id number] 1995 Unknown [id number] 2.16.84 [id number] 1995 Unknown [id number] 2.16.84 [id number] Social History Date Type Detail Facility Tobacco smoking stat [facility] Tobacco smoking consumption unknown [facility] Start: 02-27-2024 [facility] Start: 1995 Sex assigned at Not [facility] file [facility] Gender identity Not [facility] file [facility] Medical Equipment Procedure Code Equipment Code Equipment Origin al Text Equipment Identifier Dates 1 strip by In Vi tro route Daily Use in the morning prior to breakfast, 1 hour after each meal for a total of 4times daily. [id number] Start: 08-30-2024 End: 09-29-2024 1 each by In Vit ro route Daily Use to check FSBS four times daily [id number] Start: 08-30-2024 End: 09-29-2024 Clinical Notes 04-27-2024 to 09-05-2024 Rema Espinoza LPN - 09/05/2024 1:50 PM MAURO Chinchilla - 08/21/2024 1:00 PM Dean Espinoza LPN - 07/24/2024 2:20 PM MAURO Chinchilla - 06/25/2024 2:50 PM MAURO Chinchilla - 06/25/2024 2:50 PM EST Note Date & Type Note Facility 09-05-2024 History of Presen t illness Narrative Reason for Appointment: Patient ID: Alisha Batista is a 28 y.o. female who presents for Routine Visit Patient presents today for Return OB appointment. MEDICATIONS Current Outpatient Medications Medication Instructions Alcohol Swabs (Alcohol Prep Pad) 70 % pads 1 Pad, Topical, Daily, Use four times daily to check FSBS. Blood Glucose Monitoring Suppl (D-Care Glucometer) w/Device kit 1 kit, Does not apply, Daily, Use four times daily to check FSBS. In the morning prior to breakfast & 1 hour after each meal for a total of 4times daily. Glucose Blood (Blood Glucose Test) strip 1 strip, In Vitro, Daily, Use in the morning prior to breakfast, 1 hour after each meal for a total of 4times daily. iron polysaccharides (PROFE) 391.3 mg, Oral, Daily Lancets Ultra Thin misc 1 each, In Vitro, Daily, Use to check FSBS four times daily ALLERGIES Allergies Allergen Reactions Shrimp (Diagnostic) PROBLEMS Active Ambulatory Problems Diagnosis Date Noted Second trimester 05/28/2024 15 weeks gestation of 05/28/2024 Screening, , for anatomic survey 05/28/2024 headache, antepartum 05/28/2024 Marginal placenta previa 07/05/2024 Resolved Ambulatory Problems Diagnosis Date Noted No Resolved Ambulatory Problems Past Medical History: Diagnosis Date Gestational diabetes HISTORY PAST MEDICAL HISTORY SOCIAL HISTORY Past Medical History: Diagnosis Date Gestational diabetes Social History Tobacco Use Smoking status: Not [...] nursing note reviewed. Exam conducted with a control officer present. Vitals: There is no height or weight on file to calculate BMI. BP: 118/60 Patient's last menstrual period was 02/13/2024. ASSESSMENT & PLAN ICD-10-CM 1. 29 weeks gestation of Z3A.29 POCT urinalysis dipstick manually resulted 2. Third trimester Z34.93 POCT urinalysis dipstick manually resulted 3. Gestational diabetes mellitus (GDM), antepartum, gestational diabetes method of control unspecified O24.419 US OB follow up transabdominal approach Return OB: Patient presents today for a routine obstetrics appointment. Patient is currently 29w2d . Patient states she is doing well but has complaints of being tired due to current . Patient has verbalizes frequent movement. labor precautions was discussed/given and patient was instructed to perform kick counts three times a day. Pt started checking FSBS today. Will review next visit. Orders Placed This Encounter Procedures US OB follow up transabdominal approach POCT urinalysis dipstick manually resulted Follow Up: Patient is to return to office in 2 week for routine OB appointment. Documented by Rema Espinoza LPN on behalf of: Wale Cox DO documented in this encounter [facility] 08-21-2024 History of Presen t illness Narrative [...] of: MAURO Quesada documented in this encounter [facility] 07-24-2024 History of Presen t illness Narrative [...] nursing note reviewed. Exam conducted with a control officer present. Vitals: There is no height or [...] Wale Cox DO documented in this encounter [facility] 06-25-2024 History of Presen t illness Narrative [...] obtained without difficulty and patient was given [facility] order to have obtained. Orders Placed This [...] nursing note reviewed. Exam conducted with a control officer present. Vitals: There is no height or [...] obtained without difficulty and patient was given [facility] order to have obtained. Orders Placed This Encounter Procedures US OB ANATOMY SINGLE W US OB CERVICAL LENGTH CHLAMYDIA TRACHOMATIS (GENITO/STI) Neisseria gonorrhea DNA probe, direct Alpha fetoprotein, maternal POCT urinalysis dipstick manually resulted Follow Up: Patient is to return to our office in 4 weeks for routine OB appointment Documented by MAURO Quesada on behalf of: MAURO Quesada documented in this encounter [facility] 05-28-2024 History of Presen t illness Narrative [...] nursing note reviewed. Exam conducted with a control officer present. Vitals: There is no height or [...] or undercooked meat, and stay away from [facility]. Patient has been consulted regarding any [...] Wale Cox DO documented in this encounter [facility] 10-18-2024 History of Presen t illness Narrative [...] or undercooked meat, and stay away from [facility]. Patient has also been advised to [...] by: Sophy Bhakta documented in this encounter [facility] Evaluation note Diagnosis Missed menses , unspecified gestational age Encounter for supervision of normal first in first trimester [facility] Diagnosis Second trimester state, incidental 15 weeks gestation of Screening, , for anatomic survey Encounter for anatomic survey headache, antepartum [facility] Diagnosis 19 weeks gestation of Second trimester state, incidental Screening, , for anatomic survey Encounter for anatomic survey Exposure to STD Vaginal discharge Leukorrhea, not specified as infective Well woman exam with routine gynecological exam Routine gynecological examination [facility]* Diagnosis 23 weeks gestation of Second trimester state, incidental Diabetes mellitus screening Screening for diabetes mellitus Constipation, unspecified constipation type [facility]* Diagnosis Encounter for follow-up ultrasound of anatomy Second trimester state, incidental 27 weeks gestation of documented [facility]* Diagnosis 29 weeks gestation of Third trimester state, incidental Gestational diabetes mellitus (GDM), antepartum, gestational diabetes method of control unspecified documented in this encounter [facility] Summary Purpose Family History No Family History Records FoundNo Family History Records Found Advance Directives No Advanced Directives Records FoundNo Advanced Directives Records Found Additional Source Comments INFORMATION SOURCE (unrecogn ized section and content) DATE CREATED AUTHOR 02/18/2021 [facility] DATE CREATED AUTHOR AUTHOR'S ORGANIZ ATION 09/07/2024 [facility] EPIC Reason for Visit (unrecogniz ed section and content) Reason Comments Initial Visit Reason Comments Routine Visit Care Teams (unrecognized sec tion and content) Take Down Inspector Relationship Specialty Start Date End Date Steffen Guillaume MD [address] [place] [id number] PCP - General Family Medicine 11/16/22 Take Down Inspector Relationship Specialty Start Date End Date Steffen Guillaume MD [address] [facility] [address] [place] [address] PCP - General Family Medicine 11/16/22 Take Down Inspector Relationship Specialty Start Date End Date Steffen Guillaume MD [address] [facility] [address] [place] [address] PCP - General Family Medicine 11/16/22 Take Down Inspector Relationship Specialty Start Date End Date Steffen Guillaume MD [address] [facility] [address] [place] [address] PCP - General Family Medicine 11/16/22 Take Down Inspector Relationship Specialty Start Date End Date Steffen Guillaume MD [address] [facility] [address] [place] [address] PCP - General Family Medicine 11/16/22 Take Down Inspector Relationship Specialty Start Date End Date Steffen Guillaume MD [address] [facility] [address] [place] [address] PCP - General Family Medicine 11/16/22 Take Down Inspector Relationship Specialty Start Date End Date Steffen Guillaume MD [address] [facility] [address] [place] [address] PCP - General Family Medicine 11/16/22 Take Down Inspector Relationship Specialty Start Date End Date Steffen Guillaume MD [address] [facility] [address] [place] [address] PCP - General Family Medicine 11/16/22 Take Down Inspector Relationship Specialty Start Date End Date Steffen Guillaume MD [address] [facility] [address] [place] [address] PCP - General Family Medicine 11/16/22 Take Down Inspector Relationship Specialty Start Date End Date Steffen Guillaume MD [address] [facility] [address] [place] [address] PCP - General Family Medicine 11/16/22 FOR [...] BE BASED ON THE PRIMARY CLINICAL RECORDS. [facility] [employer] provides no warranty or guarantee of the accuracy or completeness of information in this document.
== END 2024-09-13 12:29 | disposition home or self-care (01) ==
LOC: FBCO 08:06
PROVIDERS: PCP Family Medicine; Visit Provider Obstetrics & Gynecology
DX: O24.410 Gestational diabetes mellitus in pregnancy, diet controlled (principal)
CPT/HCPCS: G0108

== ENCOUNTER 2024-10-23 10:59 | Outpatient (OUT) | payer BC, SELFPAY ==
--- NOTE | 2024-10-23 | US_ITS ---
The [address] [address] Patient Name: COLE TIJERINA MRN: [id number] date: 1995 Sex: F Assigned Patient Location: US Current Patient Location: Accession/Order Number: [id number] Exam Date: 10/23/2024 11:42 Report Date: 10/23/2024 11:44 At the request of: KELSEY MCNEILL Procedure: US OB BPP w non-stress BIOPHYSICAL PROFILE: CLINICAL INFORMATION: Gestational diabetes mellitus O24.419 COMPARISON: None There is a single live intrauterine gestation in cephalic presentation. The reported gestational age is 36 weeks 1 day. The heart rate measures 129 beats per minute. FINDINGS: TONE: 1 or more episodes of activity extension and flexion of extremity or opening and closing of the hand [Y] 2/2 GROSS BODY MOVEMENTS: 3 or more discrete body or limb movements [Y] 2/2 BREATHING MOVEMENTS: 1 or more episodes of breathing lasting at least 30 seconds [Y] 2/2 SP: A single deepest vertical pocket of amniotic fluid greater than 2 cm [Y] 2/2 SP: 10.7 cm. This is in low-normal range. Total score: 8/8 US/US OB BPP w non-stress IMPRESSION: NORMAL BIOPHYSICAL PROFILE Impression dictated by: Rema Farmer M.D.10/23/2024 11:44 AM Dictation Location: [place] [address] Electronically authenticated by: [id number] Y Date: 10/23/2024 11:44
--- OUTSIDE RECORDS SUMMARY | 2024-10-23 11:03 | XMS_ITS | CCD ---
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 [employer] Production Name Role Phone Steffen Guillaume MD Primary Care Provider WALE COX Attending Unavailable CHARITO, ZOEY Attending Unavailable KENNY, WALE Attending Unavailable CHARITO, ZOEY Attending Unavailable KENNY, WALE Attending Unavailable KENNY, WALE Referring Unavailable CHARITO, ZOEY Attending Unavailable KENNY, WALE Attending Unavailable CHARITO, ZOEY Attending Unavailable Allergies Allergy Classification Reported Allergen(s) Allergy Type Date of Onset Reaction(s) Facility (20 sources) Shrimp product Propensity to adverse reactions 4 [facility] Medications Current Medications Medication Drug Class(es) Dates Sig (Normalized) Sig (Original) Blood Glucose Monitoring Suppl (D-Care Glucometer) w/Device kit (11 sources) Start: 08-30-2024 End: 08-30-2025 Blood Glucose [...] days 30 capsule 5 07/24/2024 08/03/2024 Active insulin isophane, human 100 unt/ml injectable suspension (6 sources) Start: 09-24-2024 End: 10-24-2024 inject 5 [IU] by subcutaneous injection at bedtime insulin NPH, Isophane, (HumuLIN N,NovoLIN N) 100 UNIT/ML injection Indications: Gestational diabetes mellitus (GDM), antepartum, gestational diabetes method of control unspecified Inject 5 Units under the skin at bedtime 1.5 mL 09/24/2024 10/17/2024 Discontinued isopropyl alcohol 0.7 ml/ml medicated pad (11 sources) Start: 08-30-2024 Alcohol Swabs (Alcohol Prep Pad) 70 % pads Indications: Gestational diabetes mellitus (GDM), antepartum, gestational diabetes method of control unspecified , Elevated glucose tolerance test Apply 1 Pad topically Daily Use four times daily to check FSBS. 150 each 3 08/30/2024 Active polysaccharide iron complex 391 mg oral capsule (15 sources) Start: 08-07-2024 End: 08-07-2025 take 1 capsule by mouth once daily iron polysaccharides (ProFe) 391.3 (180 Fe) MG capsule Indications: Anemia during in second trimester Take 1 capsule (391.3 mg) by mouth Daily 30 capsule 11 08/07/2024 08/07/2025 Active Problems Active Problems Problem Classification Problem Date Documented Da te Episodic/Chronic Diabetes or abnormal glucose tolerance complicating ; childbirth; or the puerperium (4 sources) Gestational diabetes mellitus; Translations: [Gestational diabetes mellitus in , unspecified control] 09-05-2024 Episodic Immunizations and screening for infectious disease [...] [29 weeks gestation of ] 09-05-2024 Episodic Residual codes; unclassified (2 sources) Gestation period, 31 weeks; Translations: [31 weeks gestation of ] 09-19-2024 Episodic Residual codes; unclassified (2 sources) Gestation period, 33 weeks; Translations: [33 weeks gestation of ] 10-03-2024 Episodic Residual codes; unclassified (2 sources) Gestation period, 35 weeks; Translations: [35 weeks gestation of ] 10-17-2024 Episodic Past or Other Problems Problem Classification Problem Date Documented Da te Episodic/Chronic Hemorrhage during ; abruptio placenta; placenta previa (19 sources) Placenta previa marginalis; Translations: [Partial placenta previa NOS or without hemorrhage, unspecified trimester] Onset: 07-05-2024 07-05-2024 Episodic Other complications of (20 sources) Headache; Translations: [...] Range Facility Urinalysis macro (dipstick) panel (U)on 10-17-2024 Bilirubin, UA Negative Negative - 4(70) +++ mg/dL [facility] Blood, UA Negative Negative - 50 Calderon/mcL [facility] Clarity, UA Clear [facility] Color, UA Yellow [facility] Glucose, UA Positive Negative - 2000(110) ++++ mg/dL [facility] Comment on above: 250 Interpretation and review of laboratory results Abnormal [facility] Ketones, UA Positive Negative - 160(16) ++++ mg/dL [facility] Comment on above: trace Leukocytes, UA Trace Negative - 500+++ Eyal/mcL [facility] Nitrite, UA Negative Negative - Positive [facility] pH, UA 6.5 5 - 9 [facility] Healthcar e Protein, UA Positive Negative - 1999(20) ++++ mg/dL [facility] Comment on above: trace Spec Grav, UA 1.025 1 - 1.03 [facility] Urobilinogen, UA 0.2 0.2 - 12 mg/dL [facility] Urinalysis macro (dipstick) panel (U)on 10-03-2024 Bilirubin, UA Negative Negative - 4(70) +++ mg/dL [facility] Blood, UA Negative Negative - 50 Calderon/mcL [facility] Clarity, UA Clear [facility] re Color, UA Yellow [facility] e Glucose, UA Negative Negative - 1999(110) ++++ mg/dL [facility] Interpretation and review of laboratory results Normal [facility] Ketones, UA Negative Negative - 160(16) ++++ mg/dL [facility] Leukocytes, UA Negative Negative - 500+++ Eyal/mcL [facility] Nitrite, UA Negative Negative - Positive [facility] pH, UA 6 5 - 9 [facility] Healthcar e Protein, UA Negative Negative - 1999(20) ++++ mg/dL [facility] Spec Grav, UA 1.01 1 - 1.03 [facility] Urobilinogen, UA 0.2 0.2 - 12 mg/dL [facility] e US OB FOLLOW UP TRANSABDOMIN AL APPROACHon 09-19-2024 US OB FOLLOW UP TRANSABDOMINAL APPROACH EXAM: US OB FOLLOW UP TRANSABDOMINAL APPROACH HISTORY: Gestational diabetes. COMPARISON: OB ultrasound 08/27/2024. TECHNIQUE: Two-dimensional transabdominal grayscale ultrasound imaging of the pelvis was performed. FINDINGS: Gestation: Single Presentation: Cephalic Cardiac Activity: 141 beats per minute Placental Location: Anterior with no sonographic abnormalities identified. Cervical canal: Not well visualized Amniotic Fluid Index: 11.8 cm MEASUREMENTS: BPD: 8.2 cm EGA: 32 weeks 6 days HC: 29.4 cm EGA: 32 weeks 4 days AC: 28.0 cm EGA: 32 weeks 1 days FL: 6.2 cm EGA: 32 weeks 2 days HC/AC Ratio: 1.05 The gestational age by today's ultrasound is 32 weeks 3 days (+/- 16 days gestation). Estimated Weight: 1932 grams, +/- 290 grams ( 4 lb 4 oz). Weight Percentile for gestational age: 71 % IMPRESSION: 1. Single, live intrauterine gestation 31 weeks, 2 days by LMP. Today's ultrasound measurements correlate with a gestational age of 32 weeks 3 days. Estimated weight is 1932 grams, +/- 290 grams ( 4 lb 4 oz) which correlates to 71 %. HILLARY is 11/11/2024. Electronically Signed:Electronically signed by JUAN JOSÉ MCCANN II, MD, PHD at 20-Sep-2024 09:03:12 AM [facility] Normal Not Available Comment on above: Order Comment: US OB SCAN FOR GROWTH Estimated Date of Delivery: 11/19/24 Gestational Age as of 09/05/2024: 29w2d Urinalysis macro (dipstick) panel (U)on 09-19-2024 Bilirubin, UA Negative Negative - 4(70) +++ mg/dL [facility] Blood, UA Negative Negative - 50 Calderon/mcL [facility] Clarity, UA Clear [facility] re Color, UA Yellow [facility] Glucose, UA Negative Negative - 1999(110) ++++ mg/dL [facility] Interpretation and review of laboratory results Normal [facility] Ketones, UA Negative Negative - 160(16) ++++ mg/dL [facility] Leukocytes, UA Negative Negative - 500+++ Eyal/mcL [facility] Nitrite, UA Negative Negative - Positive [facility] pH, UA 7.5 5 - 9 [facility] Protein, UA Negative Negative - 1999(20) ++++ mg/dL [facility] Spec Grav, UA 1.02 1 - 1.03 [facility] Urobilinogen, UA 0.2 0.2 - 12 mg/dL [facility] Urinalysis macro (dipstick) panel (U)on 09-05-2024 Bilirubin, UA Negative Negative - 4(70) +++ mg/dL [facility] Blood, UA Negative Negative - 50 Calderon/mcL [facility] Clarity, UA Clear [facility] re Color, UA Micaela [facility] Healthcar e Glucose, UA Positive Negative - 1999(110) ++++ mg/dL [facility] Comment on above: 100 Interpretation and review of laboratory results Abnormal [facility] Ketones, UA Negative Negative - 160(16) ++++ mg/dL [facility] Leukocytes, UA Positive Negative - 500+++ Eyal/mcL [facility] Comment on above: small Nitrite, UA Negative Negative - Positive [facility] pH, UA 6 5 - 9 [facility] Protein, UA Negative Negative - 1999(20) ++++ mg/dL [facility] Spec Grav, UA 1.01 1 - 1.03 [facility] Urobilinogen, UA 0.2 0.2 - 12 mg/dL [facility] e US OB LIMITED 1+ FETUSESon 0 08-27-2024 US OB LIMITED 1+ FETUSES EXAM: US [...] II, MD, PHD at 29-Aug-2024 08:00:42 AM [facility] Normal Not Available Comment on above: Order Comment: US OB INCOMPLETE ANATOMY Estimated Date of Delivery: 11/19/24 Gestational Age as of 08/21/2024: 28w0d GLUCOSE TOLERANCE 3 HOURon 0 08-24-2024 GLUCOSE TOLERANCE 3 HOUR High mg/dL [facility] Comment on above: GLU FAST 96H (<95) C ol: 08/24/24 1004 GLU 1HR 189H (<180) Col: 08/24/24 1105 GLU 2HR 149 (<155) Col: 08/24/24 1207 GLU 3HR 119 (<140) Col: 08/24/24 1308 Interpretation and review of laboratory results Abnormal [facility] US OB LIMITED 1+ FETUSESon [...] UA Negative Negative - 4(70) +++ mg/dL [facility] Blood, UA Negative Negative - 50 Calderon/mcL [facility] Clarity, UA Clear [facility] Healthfl re Color, UA Yellow [facility] Healthcar e Glucose, UA Negative Negative - 1999(110) ++++ mg/dL [facility] Interpretation and review of laboratory results Abnormal [facility] Ketones, UA Negative Negative - 160(16) ++++ mg/dL [facility] Leukocytes, UA Trace Negative - 500+++ Eyal/mcL [facility] Nitrite, UA Negative Negative - Positive [facility] pH, UA 7 5 - 9 [facility] Protein, UA Negative Negative - 1999(20) ++++ mg/dL [facility] Spec Grav, UA 1.02 1 - 1.03 [facility] Urobilinogen, UA 0.2 0.2 - 12 mg/dL [facility] AFP, SERUM, OPEN SPINA BIFID Aon 07-16-2024 AFP MOM 1.03 . [facility] AFP VALUE 76.2 ng/mL . [facility] Healthcar e COMMENT: Comment . [facility] Healthcar e Comment on above: Winifred Burch , Ph.D., [facility] Director References: Available Upon Request. Multiples Of Median Cutoffs For AFP Elevations [place]offett 2.5 Black 2.8 IDD 2.0 Twins 4.5 Abbreviation Definitions IDD - Insulin Dep Diabetes OSBR - Open Spina Bifida Risk For further inquiries contact [employer] [facility] at [phone]. This test was developed and its performance characteristics determined by [employer]. It has not been cleared or approved by the Food and Drug Administration. Performed at: [facility] [address] [facility], [place], [place] [id number] Lung Gun Operator: Babita Carranza [facility], Phone: [phone] GEST. AGE ON COLLECTION DATE 21.[address] [facility] GESTAT. AGE BASED ON LMP . [facility] Comment on above: Recalculations are n ot recommended when gestational dating by LMP and ultrasound are within 10 days. INSULIN DEP DIABETES No . [facility] Healthcare INTERPRETATION Comment . [facility] Comment on above: Interpretation: Scre en Negative [...] Customer Services to discuss available options. The [employer] recommends amniocentesis be offered to women age 35 and older. MATERNAL [age] HILLARY 28.[address] [facility] MULTIPLE GESTATION No . [facility] [place] [address] [place] [phone] . [facility] Healt hcare RACE Other . [facility] [employer] RESULTS Report . [facility] [employer] e TEST RESULTS: Negative . [facility] care WEIGHT 135 . lbs [facility] [employer] N N LMP [id number] [phone] 19 N 1 Y 135 N N N N N Other Race [facility] [employer] IGP,APTIMA HPV,AGE GDLNon AGE GDLN ACOG TESTING Note . [facility] Comment on above: TESTS RESULT FLAG UN ITS REF RANGE LAB Clinician Provided Cytology Information Source.............Cervix Other.............. No. of containers..01 ThinPrep Vial Age Algo ACOG Bettye... FLAG LEGEND: L-Low Normal,H-High Normal,LL-Alert Low,HH-Alert High <-Panic Low,>-Panic High,A-Abnormal,AA-Critical Abnormal Performed at: 01 [address] [id number] Grecia Wright MD, IGP, RFX APTIMA HPV ASCU Note . [facility] Comment on above: TESTS RESULT FLAG UN ITS REF RANGE LAB DIAGNOSIS: 02 NEGATIVE FOR INTRAEPITHELIAL LESION OR MALIGNANCY. Specimen adequacy: 02 Satisfactory for evaluation. No endocervical component is identified. An endocervical component is not commonly seen in the patient. Performed by: [employer] ([facility]) . 02 Note: Note 02 [...] <-Panic Low,>-Panic High,A-Abnormal,AA-Critical Abnormal Performed at: [address] [id number] Grecia Wright MD, Performed at: = - [address] [id number] Lung Gun Operator: Grecia Wright MD, Phone: [phone] Performed at: [address] [id number] Lung Gun Operator: Grecia Wright MD, Phone: [phone] SPATULA-ALONE CERVIX [facility] Healthcar e RECURRENT VAGINITIS (HTRX)on 06-26-2024 ATOPOBIUM VAGINAE 15.84 Abnormal [facility] ATOPOBIUM VAGINAE Detected Abnormal [facility] BVAB 2,3 (BACTERIAL VAGINOSIS ASSOCIATED BACTERIA 2, 3); MOBILUNCUS SPP 24.558 Abnormal [facility] BVAB 2,3 (BACTERIAL VAGINOSIS ASSOCIATED BACTERIA 2, 3); MOBILUNCUS SPP Detected Abnormal [facility] SOHAM ALBICANS, PARAPSILOSIS, TROPICALIS 0 [facility] SOHAM ALBICANS, PARAPSILOSIS, TROPICALIS Not detected [facility] SOHAM GLABRATA 0 [facility] SOHAM GLABRATA Not detected [facility] SOHAM KRUSEI 0 [facility]alt hcare SOHAM KRUSEI Not detected [facility] CHLAMYDIA TRACHOMATIS 0 [facility] CHLAMYDIA TRACHOMATIS Not detected [facility] GARDNERELLA VAGINALIS 21.[address] [facility] GARDNERELLA VAGINALIS Detected Abnormal [facility] Healthcare Interpretation and review of laboratory results Abnormal [facility] Healthcare MEGASPHAERA (TYPES 1, 2) 0 [facility] Healthcare MEGASPHAERA (TYPES 1, 2) Not detected [facility] MYCOPLASMA GENITALIUM 0 [facility] MYCOPLASMA GENITALIUM Not detected [facility] NEISSERIA GONORRHOEAE [address] [facility] NEISSERIA GONORRHOEAE Not detected [facility] Healthcare TET B, TET M 18.181 Abnormal [facility] Health[facility] are TET B, TET M Detected Abnormal [facility] Healthc are TRICHOMONAS VAGINALIS [address] [facility] TRICHOMONAS VAGINALIS Not detected [facility] Urinalysis macro (dipstick) panel (U)on 06-25-2024 Bilirubin, UA Negative Negative - 4(70) +++ mg/dL [facility] Blood, UA Negative Negative - 50 Calderon/mcL [facility] Healthcare Clarity, UA Clear [facility] Healthca re Color, UA Yellow [facility] Healthcar e Glucose, UA Negative Negative - 1999(110) ++++ mg/dL [facility] Interpretation and review of laboratory results Abnormal [facility] Ketones, UA Negative Negative - 160(16) ++++ mg/dL [facility] Leukocytes, UA Trace Negative - 500+++ Eyal/mcL [facility] Nitrite, UA Negative Negative - Positive [facility] pH, UA 6 5 - 9 [facility] Protein, UA Negative Negative - 1999(20) ++++ mg/dL [facility] Spec Grav, UA 1.01 1 - 1.03 [facility] Urobilinogen, UA 0.2 0.2 - 12 mg/dL [facility] Urinalysis macro (dipstick) panel (U)on 05-28-2024 Bilirubin, UA Negative Negative - 4(70) +++ mg/dL [facility] Blood, UA Negative Negative - 50 Calderon/mcL [facility] Healthcare Clarity, UA Clear [facility] Color, UA Yellow [facility] Glucose, UA Negative Negative - 1999(110) ++++ mg/dL [facility] Interpretation and review of laboratory results Normal [facility] Ketones, UA Negative Negative - 160(16) ++++ mg/dL [facility] Leukocytes, UA Negative Negative - 500+++ Eyal/mcL [facility] Nitrite, UA Negative Negative - Positive [facility] pH, UA 7 5 - 9 [facility] Protein, UA Negative Negative - 1999(20) ++++ mg/dL [facility] Spec Grav, UA 1.015 1 - 1.03 [facility] Urobilinogen, UA 0.2 0.2 - 12 mg/dL [facility] CBC WITH AUTO DIFFon BASOPHILS ABSOLUTE AUTO 0 [facility] Basophils/100 WBC (Bld) 0.2 % 0.2 - 2.0 % [facility] Eosinophils/100 WBC (Bld) 1.1 % 0.9 - 7.0 % [facility] Erythrocyte distribution width (RBC) [Ratio] 12.2 % 11.0 - 15.0 % [facility] Hematocrit (Bld) [Volume fraction] 36.9 % 36.0 - 48.0 % [facility] Hemoglobin (Bld) [Mass/Vol] 12.8 g/dL 12.0 - 16.0 g/dL [facility] IMMATURE GRANULOCYTES ABS AUTO 0.03 [facility] Immature granulocytes/100 WBC (Bld) 0.3 % 0.0 - 0.5 % [facility] Interpretation and review of laboratory results Abnormal [facility] LYMPHOCYTES ABSOLUTE AUTO 1.8 [facility] Lymphocytes/100 WBC (Bld) 19.8 % Low 20.5 - 60.0 % [facility] MCH (RBC) [Entitic mass] 29.9 pg 26.7 - 34.[address] [facility] MCHC (RBC) [Mass/Vol] 34.7 g/dL 29.9 - 35.2 g/dL [facility] MCV (RBC) [Entitic vol] 86.2 fL 81.0 - 99.[address] [facility] MONOCYTES ABSOLUTE AUTO 0.5 [facility] Monocytes/100 WBC (Bld) 5.5 % 1.7 - 12.0 % [facility] NEUTROPHILS ABSOLUTE AUTO 6.5 [facility] Neutrophils/100 WBC (Bld) 73.1 % 43.0 - 75.0 % [facility] Platelet mean volume (Bld) [Entitic vol] 9.4 fL Low 9.5 - 13.5 fL [facility] are TBH EO # 0.1 [facility] TB PLT 309 [facility] TB RBC 4.28 [facility] TB WBC 9 [facility] HCG ( test) Ql (U)o n 04-27-2024 Interpretation and review of laboratory results Abnormal [facility] Preg Test, Ur Positive [facility] Health[facility] e Urinalysis macro (dipstick) panel (U)on 04-27-2024 Bilirubin, UA Negative Negative - 4(70) +++ mg/dL [facility] Blood, UA Negative Negative - 50 Calderon/mcL [facility] Clarity, UA Clear [facility] re Color, UA Yellow [facility] Glucose, UA Negative Negative - 1999(110) ++++ mg/dL [facility] Interpretation and review of laboratory results Abnormal [facility] Ketones, UA Negative Negative - 160(16) ++++ mg/dL [facility] Leukocytes, UA Trace Negative - 500+++ Eyal/mcL [facility] Nitrite, UA Negative Negative - Positive [facility] pH, UA 7.5 5 - 9 [facility] Protein, UA Negative Negative - 1999(20) ++++ mg/dL [facility] Spec Grav, UA 1.02 1 - 1.03 [facility] Urobilinogen, UA 0.2 0.2 - 12 mg/dL [facility] Health[facility] e Registrationon 02-17-2021 Registration [id number]# 1.00CD:127 [facility] Consent for Treatmenton Consent for Treatment [id number]# 1.00CD:127 [facility] Vital Signs Date Time Vital Sign Value Performing Clinician Layne armando 10-17-2024 13:21-0400 Body weight 66.13 kg Zoey WADE Work Phone: [facility] 10-17-2024 13:21-0400 Diastolic blood pressure 70 mm[Hg] Zoey Charito PA Work Phone: [facility] 10-17-2024 13:21-0400 Systolic blood pressure 110 mm[Hg] Zoey Charito PA Work Phone: [facility] 10-03-2024 14:16-0400 Body weight 64.86 kg Wale Kenny DO Work Phone: [facility] 10-03-2024 14:16-0400 Diastolic blood pressure 68 mm[Hg] Wale Kenny DO Work Phone: [facility] 10-03-2024 14:16-0400 Systolic blood pressure 110 mm[Hg] Wale Kenny DO Work Phone: [facility] 09-19-2024 14:50-0400 Body weight 65.77 kg Zoey Charito PA Work Phone: [facility] 09-19-2024 14:50-0400 Diastolic blood pressure 70 mm[Hg] Zoey Charito PA Work Phone: [facility] 09-19-2024 14:50-0400 Systolic blood pressure 118 mm[Hg] Zoey Charito PA Work Phone: [facility] 09-05-2024 13:56-0500 Body weight 65.23 kg Wale Kenny DO Work Phone: [facility] 09-05-2024 13:56-0500 Diastolic blood pressure 60 mm[Hg] Wale Kenny DO Work Phone: [facility] 09-05-2024 13:56-0500 Systolic blood pressure 118 mm[Hg] Wale Kenny DO Work Phone: [facility] 08-21-2024 13:34-0500 Body weight 64.41 kg Zoey Charito PA Work Phone: [facility] 08-21-2024 13:34-0500 Diastolic blood pressure 68 mm[Hg] Zoey Charito PA Work Phone: [facility] 02-11-2025 13:34-0500 Systolic blood pressure 102 mm[Hg] Zoey WADE Work Phone: [facility] 07-24-2024 14:29-0500 Body weight 64.32 kg Wale Kenny DO Work Phone: [facility] 07-24-2024 14:29-0500 Diastolic blood pressure 72 mm[Hg] Wale Kenny DO Work Phone: [facility] 07-24-2024 14:29-0500 Systolic blood pressure 100 mm[Hg] Wale Kenny DO Work Phone: [facility] 06-25-2024 14:52-0500 Body weight 61.15 kg Zoey WADE Work Phone: [facility] 06-25-2024 14:52-0500 Diastolic blood pressure 70 mm[Hg] Zoey WADE Work Phone: [facility] 06-25-2024 14:52-0500 Systolic blood pressure 104 mm[Hg] Zoey WADE Work Phone: [facility] 05-28-2024 14:27-0500 Body weight 59.88 kg Wale Kenny DO Work Phone: [facility] 05-28-2024 14:27-0500 Diastolic blood pressure 62 mm[Hg] Wale Kenny DO Work Phone: [facility] 05-28-2024 14:27-0500 Systolic blood pressure 100 mm[Hg] Wale Kenny DO Work Phone: [facility] 04-27-2024 10:48-0400 Body weight 57.[address] [facility] 04-27-2024 10:48-0400 Diastolic blood pressure 68 mm[Hg] Noms Nurse [facility] 04-27-2024 10:48-0400 Systolic blood pressure 100 mm[Hg] Noms Nurse [facility] Encounters Encounter Date Encounter Type Care Provider Facility Start: 10-17-2024 End: 10-17-2024 Bamboo flowsheet Zoey WADE Work Phone: [facility] Start: 10-17-2024 End: 10-17-2024 Bamboo flowsheet Zoey WADE Work Phone: [facility] Start: 10-17-2024 End: 10-17-2024 flow sheet Zoey WADE Work Phone: [facility] Comment on above: 35 weeks gestation o f ; Third trimester ; Gestational diabetes mellitus (GDM), antepartum, gestational diabetes method of control unspecified Start: 10-17-2024 End: 10-17-2024 ambulatory ZOEY MCNEILL Not Available Start: 10-03-2024 End: 10-03-2024 Bamboo flowsheet Wale Kenny DO Work Phone: [facility] Start: 10-03-2024 End: 10-03-2024 Bamboo flowsheet Wale Kenny DO Work Phone: [facility] Start: 10-03-2024 End: 10-03-2024 flow sheet Wale Kenny DO Work Phone: [facility] Comment on above: Third trimester preg zac; 33 weeks gestation of Start: 10-03-2024 End: 10-03-2024 ambulatory WALE KENNY Not Available Start: 09-19-2024 End: 09-19-2024 flow sheet Zoey WADE Work Phone: [facility] Comment on above: Third trimester preg zac; 31 weeks gestation of Start: 09-19-2024 End: 09-19-2024 ambulatory ZOEY MCNEILL Not Available Start: 09-05-2024 End: 09-05-2024 Bamboo flowsheet Wale Kenny DO Work Phone: [facility] Start: 09-05-2024 End: 09-05-2024 Bamboo flowsheet Wale Kenny DO Work Phone: [facility] Start: 09-05-2024 End: 09-05-2024 ambulatory WALE KENNY Not Available Start: 09-05-2024 End: 09-05-2024 flow sheet Wale Kenny DO Work Phone: [facility] Comment on above: 29 weeks gestation o f ; Third trimester ; Gestational diabetes mellitus (GDM), antepartum, gestational diabetes method of control unspecified Start: 08-27-2024 End: 08-27-2024 ambulatory WALE KENNY Not Available Start: 08-24-2024 End: 08-24-2024 Clinisync Result Encounter Wale Kenny DO Work Phone: [facility] Unsolicited Start: 08-24-2024 End: 08-24-2024 Clinisync Result Encounter Wale Kenny DO Work Phone: [facility] Unsolicited Start: 08-21-2024 End: 08-21-2024 [...] gestation of Start: 08-02-2024 End: 08-02-2024 ambulatory WALE KENNY [...] [facility] Start: 05-28-2024 End: 05-28-2024 ambulatory WAEL KENNY Not Available Start: 05-28-2024 End: 05-28-2024 [...] Date Procedure Procedure Detail Performing Clinician Start: 10-17-2024 Urnls dip stick/tabl et rgnt non-auto w/o micrscp Zoey WADE Work Phone: Start: 10-03-2024 Urnls dip stick/tabl et rgnt non-auto w/o micrscp Wale Kenny DO Work Phone: Start: 09-19-2024 Urnls dip stick/tabl et rgnt non-auto w/o micrscp Zoey WADE Work Phone: Start: 09-05-2024 Urnls dip stick/tabl et rgnt [...] Treatment Date Care Activity Detail Author Start: 03-11-2025 Influenza vaccination Influenz a Vaccine (Season Ended) [facility] Start: 10-17-2024 End: 10-17-2025 US biophysical profile w non stress test US biophysical profile w non stress test Imaging Routine 35 weeks gestation of Third trimester Gestational diabetes mellitus (GDM), antepartum, gestational diabetes method of control unspecified Expected: 10/17/2024 (Approximate), Expires: 10/17/2025 [facility] Work Phone: Comment on above: Expected: 10/17/2024 (Approximate), Expires: 10/17/2025 Start: 10-17-2024 End: 10-17-2024 Patient encounter procedure [facility] Comment on above: Arrived Start: 10-03-2024 End: 10-03-2024 Patient encounter procedure [facility] Comment on above: Arrived Start: 09-19-2024 End: 09-19-2024 Patient encounter procedure 09/19/2024 3:20 PM EDT Routine [facility] [address] [place] [id number] Zoey Mcneill PA [address] [place] [address] [facility] Start: 09-19-2024 End: 09-19-2024 Professional / ancillary services management 09/19/2024 2:00 PM EDT Ancillary Procedure [facility] [address] [place] [phone] [facility] Start: 09-05-2024 End: 09-05-2024 Patient encounter procedure 09/05/2024 1:50 PM EST Routine [facility] [address] [place] [id number] Wale Cxo DO [address] [place] [address] [facility] Start: 08-27-2024 End: 08-27-2024 Professional / ancillary services management 08/27/2024 12:30 PM EST Ancillary Procedure [facility] [address] [place] [address] [facility] Start: 08-21-2024 End: 08-21-2025 US for US OB limited 1+ fetuses Imaging Routine Encounter for follow-up ultrasound of anatomy Expected: 08/21/2024, Expires: 08/21/2025 [facility] Work Phone: Comment on above: Expected: 08/21/2024 , Expires: 08/21/2025 Start: 08-21-2024 End: 08-21-2024 Patient encounter procedure 08/21/2024 1:00 PM EST Routine [facility] [address] [place] [phone] Zoey Mcneill PA [address] [place] [address] [facility] Start: 08-02-2024 End: 08-02-2024 Professional / ancillary services management 08/02/2024 10:30 AM EST Ancillary Procedure [facility] [address] [place] [phone] [facility] Start: 07-24-2024 End: 07-24-2024 [...] mellitus screening Expected: 07/24/2024 (Approximate), Expires: 07/24/2025 [facility] Comment on above: Expected: 07/24/2024 (Approximate), Expires: 07/24/2025 Start: 06-25-2024 End: 06-25-2024 Patient encounter procedure [facility] Comment on above: Arrived Start: 06-25-2024 End: 07-26-2024 Alpha fetoprotein, maternal Alpha fetoprotein, maternal Lab Routine 19 weeks gestation of Second trimester Expected: 06/25/2024 (Approximate), Expires: 07/26/2024 [facility] Comment on above: Expected: 06/25/2024 (Approximate), Expires: 07/26/2024 Start: 06-25-2024 End: 06-25-2025 US for US OB ANATOMY SINGLE W US OB CERVICAL LENGTH Imaging Routine Screening, , for anatomic survey Expected: 06/25/2024 (Approximate), Expires: 06/25/2025 [facility] Comment on above: Expected: 06/25/2024 (Approximate), [...] PM EST Routine [facility] [address] [place] [phone] Wale Cox, [address] [place] [address] [facility] Start: 04-27-2024 End: 04-27-2025 ABO/Rh ABO/Rh Lab Routine Missed menses , unspecified gestational age Expected: 04/27/2024 (Approximate), Expires: 04/27/2025 [facility] Comment on above: Expected: 04/27/2024 (Approximate), Expires: 04/27/2025 Start: 04-27-2024 End: 04-27-2025 Blood type and Indirect antibody screen panel - Blood Type and screen Lab Routine Missed menses , unspecified gestational age Expected: 04/27/2024 (Approximate), Expires: 04/27/2025 [facility] Work Phone: Comment on above: Expected: 04/27/2024 (Approximate), Expires: 04/27/2025 Start: 04-27-2024 End: 04-27-2025 Drugs of abuse panel - Urine by Screen method Rapid drug screen, urine Lab Routine , unspecified gestational age Encounter for supervision of normal first in first trimester Expected: 04/27/2024 (Approximate), Expires: 04/27/2025 [facility] Comment on above: Expected: 04/27/2024 (Approximate), Expires: 04/27/2025 Start: 04-27-2024 End: 04-27-2025 US Pelvis transvaginal US OB transvaginal Imaging Routine Missed menses Expected: 04/27/2024 (Approximate), Expires: 04/27/2025 [facility] Comment on above: Expected: 04/27/2024 (Approximate), Expires: 04/27/2025 Start: 03-11-2024 Influenza vaccination Influenza Vacc ine (#1) [facility] Bacteria identified in Urine by Culture Urine culture Microbiology Routine Missed menses Ordered: 04/27/2024 [facility] Comment on above: Ordered: 04/27/2024 CBC W Auto Different ial panel - Blood CBC and differential Lab Routine Missed menses , unspecified gestational age Ordered: 04/27/2024 [facility] Comment on above: Ordered: 04/27/2024 CHLAMYDIA TRACHOMATI S (GENITO/STI) CHLAMYDIA TRACHOMATIS (GENITO/STI) Lab Routine Exposure to STD Ordered: 06/25/2024 [facility] Comment on above: Ordered: 06/25/2024 Cytology Cervical or vaginal smear or scraping study Pap Smear Pathology and Cytology Routine Well woman exam with routine gynecological exam Ordered: 06/25/2024 [facility] Work Phone: Comment on above: Ordered: 06/25/2024 Hemoglobin A1c/Hemoglobin.total in Blood Hemoglobin A1c Lab Routine Missed menses , unspecified gestational age Ordered: 04/27/2024 [facility] Comment on above: Ordered: 04/27/2024 Hepatitis B virus surface Ag [Presence] in Serum or Plasma by Immunoassay Hepatitis B surface antigen Lab Routine Missed menses , unspecified gestational age Ordered: 04/27/2024 [facility] Comment on above: Ordered: 04/27/2024 Hepatitis C virus Ab [Presence] in Serum or Plasma by Immunoassay Hepatitis C antibody Lab Routine Missed menses , unspecified gestational age Ordered: 04/27/2024 [facility] Comment on above: Ordered: 04/27/2024 HIV-1/HIV-2 antigen/antibody combination immunoassay HIV-1 and HIV-2 antibodies Lab Routine Missed menses , unspecified gestational age Ordered: 04/27/2024 [facility] Comment on above: Ordered: 04/27/2024 Neisseria gonorrhoea e DNA [Presence] in Unspecified specimen by CEDRICK with probe detection Neisseria gonorrhea DNA probe, direct Lab Routine Exposure to STD Ordered: 06/25/2024 [facility] Comment on above: Ordered: 06/25/2024 Reagin Ab [Presence] in Serum by RPR RPR Lab Routine Missed menses , unspecified gestational age Ordered: 04/27/2024 [facility] Comment on above: Ordered: 04/27/2024 Rubella antibody, IgG Rubella an tibody, IgG Lab Routine Missed menses , unspecified gestational age Ordered: 04/27/2024 [facility] Comment on above: Ordered: 04/27/2024 SURESWAB(R) ADVANCED VAGINITIS PLUS, TMA SURESWAB(R) ADVANCED VAGINITIS PLUS, TMA Pathology and Cytology Routine Vaginal discharge Ordered: 06/25/2024 [facility] Comment on above: Ordered: 06/25/2024 End: 09-05-2025 US for US OB follow up transabdominal approach Imaging Routine Gestational diabetes mellitus (GDM), antepartum, gestational diabetes method of control unspecified [id number] for 4 Occurrences starting 09/05/2024 until 09/05/2025 [facility] Work Phone: Comment on above: [email or web address] for 4 Occurr ences starting 09/05/2024 until 09/05/2025 Payers Date Payer Category Payer [facility] [id number] [id number] 15 2018 Unknown [id number] 1995 Unknown [id number] 2.16.84 [id number] 1995 Unknown [id number] 2.16.84 [id number] 1995 Unknown [id number] 2.16.84 [id number] 1995 Unknown [id number] 2.16.84 0.1.579000.3.579.2.9 1995 Unknown [id number] 2.16.84 [id number] 1995 Unknown [id number] 2.16.84 [id number] 1995 Unknown [id number] 2.16.84 [id number] 1995 Unknown [id number] 2.16.84 [id number] 1995 Unknown [id number] 2.16.84 [id number] 1995 Unknown [id number] 2.16.84 [id number] 1995 Unknown [id number] 2.16.84 [id number] 1995 Unknown [id number] 2.16.84 [id number] Social History Date Type Detail Facility Tobacco smoking stat [facility] Tobacco smoking consumption unknown [facility] Start: [...] meal for a total of 4times daily. [id number] Start: 08-30-2024 End: 09-29-2024 1 each by In Vit ro route Daily Use to check FSBS four times daily [id number] Start: 08-30-2024 End: 09-29-2024 Use as instructed [id number] Start: 09-26-2024 End: 10-17-2024 Clinical Notes 04-27-2024 to 10-17-2024 MAURO Quesada - 10/17/2024 1:10 PM Tee Espinoza LPN - 10/03/2024 2:00 PM Tee Esipnoza LPN - 09/05/2024 1:50 PM MAURO Chinchilla - 08/21/2024 1:00 PM Dean Espinoza LPN - 07/24/2024 2:20 PM EST Note Date & Type Note Facility 10-17-2024 History of Presen t illness Narrative Reason for Appointment: Patient ID: Alisha Batista is a 28 y.o. female who presents for Routine Visit Patient presents today for Return OB appointment. MEDICATIONS Current Outpatient Medications Medication Instructions Alcohol Swabs (Alcohol Prep Pad) 70 % pads 1 Pad, Topical, Daily, Use four times daily to check FSBS. Blood Glucose Monitoring Suppl ([email or web address] Glucometer) w/Device kit 1 kit, Does not [...] weight on file to calculate BMI. BP: 110/70 Patient's last menstrual period was 02/13/2024. ASSESSMENT & PLAN ICD-10-CM 1. 35 weeks gestation of Z3A.35 POCT urinalysis dipstick manually resulted US biophysical profile w non stress test 2. Third trimester Z34.93 POCT urinalysis dipstick manually resulted US biophysical profile w non stress test 3. Gestational diabetes mellitus (GDM), antepartum, gestational diabetes method of control unspecified O24.419 US biophysical profile w non stress test Return OB: Patient presents today for a routine obstetrics appointment. Patient is currently 35w2d . Patient states she is doing well but has complaints of being tired due to current . Patient has verbalizes frequent movement. labor precautions was discussed/given and patient was instructed to perform kick counts three times a day. Patient to start NST and BPP Orders Placed This Encounter Procedures US biophysical profile w non stress test POCT urinalysis dipstick manually resulted Follow Up: Patient is to return to office in 1 week for routine OB appointment. Documented by MAURO Quesada on behalf of: MAURO Quesada documented in this encounter [facility] 10-03-2024 History of Presen t illness Narrative Reason [...] meal for a total of 4times daily. insulin NPH (Isophane) (HUMULIN N,NOVOLIN N) 5 Units, Subcutaneous, Nightly insulin syringe 29G X 1/2 0.5 mL misc Use as instructed iron polysaccharides (PROFE) 391.3 mg, Oral, Daily [...] nursing note reviewed. Exam conducted with a automobile club information clerk present. Vitals: There is no height or weight on file to calculate BMI. BP: 110/68 Patient's last menstrual period was 02/13/2024. ASSESSMENT & PLAN ICD-10-CM 1. Third trimester Z34.93 POCT urinalysis dipstick manually resulted 2. 33 weeks gestation of Z3A.33 Return OB: Patient presents today for a routine obstetrics appointment. Patient is currently 33w2d . Patient states she is doing well but has complaints of being tired due to current . Patient has verbalizes frequent movement. labor precautions was discussed/given and patient was instructed to perform kick counts three times a day. Reviewed glucose log will start NST/BPP at 36 weeks Orders Placed This Encounter Procedures POCT urinalysis dipstick manually resulted Follow Up: Patient is to return to office in 2 week for routine OB appointment. Documented by Rema Espinoza LPN on behalf of: Wale Cox DO documented in this encounter [facility] 09-05-2024 History of Presen t illness Narrative Reason for Appointment: Patient ID: Alisha Batista is a 28 y.o. female who presents for Routine Visit Patient presents today for Return OB appointment. MEDICATIONS Current Outpatient Medications Medication Instructions Alcohol Swabs (Alcohol Prep Pad) 70 % pads 1 Pad, Topical, Daily, Use four times daily to check FSBS. Blood Glucose Monitoring Suppl ([email or web address] Glucometer) w/Device kit 1 kit, Does not [...] nursing note reviewed. Exam conducted with a automobile club information clerk present. Vitals: There is no height or [...] Wale Cox DO documented in this encounter [facility] 08-21-2024 History of Presen t illness Narrative [...] of: MAURO Quesada documented in this encounter [facility] 07-24-2024 History of Presen t illness Narrative [...] nursing note reviewed. Exam conducted with a automobile club information clerk present. Vitals: There is no height or [...] Wale Cox DO documented in this encounter [facility] 06-25-2024 History of Presen t illness Narrative [...] obtained without difficulty and [facility]. Orders Placed This [...] nursing note reviewed. Exam conducted with a automobile club information clerk present. Vitals: There is no height or [...] obtained without difficulty and patient was given [facility] order to have obtained. Orders Placed [...] of: MAURO Quesada documented in this encounter [facility] 05-28-2024 History of Presen t illness Narrative [...] nursing note reviewed. Exam conducted with a automobile club information clerk present. Vitals: There is no height or [...] or undercooked meat, and stay away from [facility]. Patient has been consulted regarding any further [...] Wale Cox DO documented in this encounter [facility] 04-27-2024 History of Presen t illness Narrative [...] or undercooked meat, and stay away from [facility]. Patient has also been advised to not [...] by: Sophy Bhakta documented in this encounter [facility] Evaluation note Diagnosis Missed menses , [...] of control unspecified [facility] Diagnosis Third trimester state, incidental 31 weeks gestation of documented in [facility]* Diagnosis Third trimester state, incidental 33 weeks gestation of documented [facility]* Diagnosis 35 weeks gestation of Third trimester state, incidental Gestational diabetes mellitus (GDM), antepartum, gestational diabetes method of control unspecified documented in this encounter [facility] Narrative* Keisha NatarajanDORY - 09/19/2024 3:20 PM EDT Reason for Appointment: Patient ID: Alisha Batista is a 28 y.o. female who presents for Routine Visit Patient presents today for Return OB appointment. MEDICATIONS Current Outpatient Medications Medication Instructions Alcohol Swabs (Alcohol Prep Pad) 70 % pads 1 Pad, Topical, Daily, Use four times daily to check FSBS. Blood Glucose Monitoring Suppl ([employer] Glucometer) w/Device kit 1 kit, Does not [...] nursing note reviewed. Exam conducted with a automobile club information clerk present. Vitals: There is no height or weight on file to calculate BMI. BP: 118/70 Patient's last menstrual period was 02/13/2024. ASSESSMENT & PLAN ICD-10-CM 1. Third trimester Z34.93 POCT urinalysis dipstick manually resulted 2. 31 weeks gestation of Z3A.31 Return OB: Patient presents today for a routine obstetrics appointment. Patient is currently 31w2d . Patient states she is doing well but has complaints of being tired due to current . Patient has verbalizes frequent movement. labor precautions was discussed/given and patient was instructed to perform kick counts three times a day. Reviewed glucose records with patient she will continue to keep glucose diary and monitor closely. Orders Placed This Encounter Procedures POCT urinalysis dipstick manually resulted Follow Up: Patient is to return to office in 2 week for routine OB appointment. Documented by Keisha Natarajan MA on behalf of: MAURO Quesada [facility] Purpose Family History No Family History Records FoundNo Family History Records Found Advance Directives No Advanced Directives Records FoundNo Advanced Directives Records Found Additional Source Comments INFORMATION SOURCE (unrecogn ized section and content) DATE CREATED AUTHOR 02/18/2021 [facility] DATE CREATED AUTHOR AUTHOR'S ORGANIZ ATION 10/19/2024 [facility] EPIC Reason for Visit (unrecogniz ed section and content) Reason Comments Initial Visit Reason Comments Routine Visit Care Teams (unrecognized sec tion and content) [employer] Relationship Specialty Start Date End Date Steffen Guillaume MD [address] [facility] [address] [place] [address] PCP - General Family Medicine 11/16/22 [employer] Relationship Specialty Start Date End Date Steffen Guillaume MD [address] [facility] [address] [place] [address] PCP - General Family Medicine 11/16/22 [employer]r [employer] Relationship Specialty Start Date End Date Steffen Guillaume MD [address] [facility] [address] [place] [address] PCP - General Family Medicine 11/16/22 [employer]r [employer] Relationship Specialty Start Date End Date Steffen Guillaume MD [address] [facility] [address] [place] [address] PCP - General Family Medicine 11/16/22 Rep[employer]r [employer] Relationship Specialty Start Date End Date Steffen Guillaume MD [address] [facility] [address] [place] [address] PCP - General Family Medicine 11/16/22 Rep[employer]r [employer] Relationship Specialty Start Date End Date Steffen Guillaume MD [address] [facility] [address] [place] [address] PCP - General Family Medicine 11/16/22 Rep[employer]r [employer] Relationship Specialty Start Date End Date Steffen Guillaume MD [address] [facility] [address] [place] [address] PCP - General Family Medicine 11/16/22 Rep[employer]r [employer] Relationship Specialty Start Date End Date Steffen Guillaume MD [address] [facility] [address] [place] [address] PCP - General Family Medicine 11/16/22 Repairer [employer] Relationship Specialty Start Date End Date Steffen Guillaume MD [address] [facility] [address] [place] [address] PCP - General Family Medicine 11/16/22 Repairer [employer] Relationship Specialty Start Date End Date Steffen Guillaume MD [address] [facility] [address] [place] [address] PCP - General Family Medicine 11/16/22 Repairer [employer] Relationship Specialty Start Date End Date Steffen Guillaume MD [address] [facility] [address] [place] [address] PCP - General Family Medicine 11/16/22 Repairer [employer] Relationship Specialty Start Date End Date Steffen Guillaume MD [address] [facility] [address] [place] [address] PCP - General Family Medicine 11/16/22 Rep[employer]r [employer] Relationship Specialty Start Date End Date Steffen Guillaume MD [address] [facility] [address] [place] [address] PCP - General Family Medicine 11/16/22 FOR [...] BE BASED ON THE PRIMARY CLINICAL RECORDS. [facility]. provides no warranty or guarantee of the accuracy or completeness of information in this document.
== END 2024-10-23 12:45 | disposition home or self-care (01) ==
LOC: US 11:31 → FBC 12:06
PROVIDERS: PCP Family Medicine; Visit Provider Physician Assistant
DX: O24.419 Gestational diabetes mellitus in pregnancy, unspecified control (principal); Z3A.36 36 weeks gestation of pregnancy
CPT/HCPCS: 76818

== ENCOUNTER 2024-10-24 14:38 | Outpatient (REF) | payer BC, SELFPAY | END 2024-10-24 14:39 | disposition home or self-care (01) | LOC: LAB 14:38 | PROVIDERS: PCP Family Medicine; Visit Provider Obstetrics & Gynecology | DX: Z34.93 Encounter for supervision of normal pregnancy, unspecified, third trimester (principal); Z3A.36 36 weeks gestation of pregnancy | CPT/HCPCS: 36415; 87081 ==

== ENCOUNTER 2024-10-26 11:01 | Outpatient (OUT) | payer BC, SELFPAY ==
--- OUTSIDE RECORDS SUMMARY | 2024-10-26 11:05 | XMS_ITS | CCD ---
Author Organization [facility] Care Team Providers Care Contact Center Consultant Name Role Phone Steffen Marshall MD Primary Care Provider WALE COX Attending [...] Glucose Monitoring Suppl (D-Care Glucometer) w/Device kit (15 sources) Start: 08-30-2024 End: 08-30-2025 Blood Glucose [...] Discontinued isopropyl alcohol 0.7 ml/ml medicated pad (15 sources) Start: 08-30-2024 Alcohol Swabs (Alcohol Prep Pad) 70 % pads Indications: Gestational diabetes mellitus (GDM), antepartum, gestational diabetes method of control unspecified , Elevated glucose tolerance test Apply 1 Pad topically Daily Use four times daily to check FSBS. 150 each 3 08/30/2024 Active polysaccharide iron complex 391 mg oral capsule (19 sources) Start: 08-07-2024 End: 08-07-2025 take 1 [...] [35 weeks gestation of ] 10-17-2024 Episodic Residual codes; unclassified (2 sources) Gestation period, 36 weeks; Translations: [36 weeks gestation of ] 10-24-2024 Episodic Past or Other Problems Problem Classification Problem Date Documented Da te Episodic/Chronic Hemorrhage during ; abruptio placenta; placenta previa (20 sources) Placenta previa marginalis; Translations: [Partial placenta [...] Range Facility Urinalysis macro (dipstick) panel (U)on 10-24-2024 Bilirubin, UA Negative Negative - 4(70) +++ mg/dL [facility] Blood, UA Negative Negative - 50 Calderon/mcL [facility] Clarity, UA Clear [facility] re Color, UA Yellow [facility] Glucose, UA Negative Negative - 1999(110) ++++ mg/dL [facility] Interpretation and review of laboratory results Normal [facility] Ketones, UA Negative Negative - 160(16) ++++ mg/dL [facility] Leukocytes, UA Trace Negative - 500+++ Eyal/mcL [facility] Nitrite, UA Negative Negative - Positive [facility] pH, UA 6.5 5 - 9 [facility] e Protein, UA Negative Negative - 1999(20) ++++ mg/dL [facility] Spec Grav, UA 1.01 1 - 1.03 [facility] Urobilinogen, UA 0.2 0.2 - 12 mg/dL [facility] OB BPP W NON-STRESS on 10-23-2024 [place] [address] Ultrasound Report Signed Patient: COLE BATISTA MR#: [id number] : 1995 Acct:[id number] Age/Sex: 28 / F ADM Date: 10/23/24 Loc: US Attending Dr: Zoey Mcneill Ordering Physician: Zoey Mcneill Date of Service: 10/23/24 Procedure(s): US OB BPP w non-stress Accession Number(s): [id number] cc: STEFFEN MARSHALL ; Zoey Mcneill [place] [id number] Patient Name: OCLE BATISTA MRN: [id number] date: 1995 Sex: F Assigned Patient Location: US Current Patient Location: US Accession/Order Number: [id number] Exam Date: 10/23/2024 11:42 Report Date: 10/23/2024 11:44 At the request of: ZOEY MCNEILL Procedure: US OB BPP w non-stress BIOPHYSICAL PROFILE: CLINICAL INFORMATION: Gestational diabetes mellitus O24.419 COMPARISON: None There is a single live intrauterine gestation in cephalic presentation. The reported gestational age is 36 weeks 1 day. The heart rate measures 129 beats per minute. FINDINGS: TONE: 1 or more episodes of activity extension and flexion of extremity or opening and closing of the hand [Y] 2/2 GROSS BODY MOVEMENTS: 3 or more discrete body or limb movements [Y] 2/2 BREATHING MOVEMENTS: 1 or more episodes of breathing lasting at least 30 seconds [Y] 2/2 SP: A single deepest vertical pocket of amniotic fluid greater than 2 cm [Y] 2/2 SP: 10.7 cm. This is in low-normal range. Total score: 8/8 US/US OB BPP w non-stress IMPRESSION: NORMAL BIOPHYSICAL PROFILE Impression dictated by: Rema Farmer M.D.10/23/2024 11:44 AM Dictation Location: [place] [address] Electronically authenticated by: [id number] Y Date: 10/23/2024 11:44 Dictated By: Rema Farmer M.D. Signed By: 10/23/24 1146 DD/ 1144 TD/TT: Blackjack Pit Boss: [facility] Radiology, Radiologist, - 10/23/2024 [place] [address] Ultrasound Report Signed Patient: COLE BATISTA MR#: [id number] : 1995 Acct:[id number] Age/Sex: 28 / F ADM Date: 10/23/24 Loc: US Attending Dr: Zoey Mcneill Ordering Physician: Zoey Mcneill Date of Service: 10/23/24 Procedure(s): US OB BPP w non-stress Accession Number(s): [id number] cc: STEFFEN MARSHALL ; Zoey Mcneill The [address] [address] Patient Name: COLE BATISTA MRN: [facility]:[id number] date: 1995 Sex: F Assigned Patient Location: US Current Patient Location: US Accession/Order Number: [id number] Exam Date: 10/23/2024 11:42 Report Date: 10/23/2024 11:44 At the request of: ZOEY MCNEILL Procedure: US OB BPP w non-stress BIOPHYSICAL PROFILE: CLINICAL INFORMATION: Gestational diabetes mellitus O24.419 COMPARISON: None There is a single live intrauterine gestation in cephalic presentation. The reported gestational age is 36 weeks 1 day. The heart rate measures 129 beats per minute. FINDINGS: TONE: 1 or more episodes of activity extension and flexion of extremity or opening and closing of the hand [Y] 2/2 GROSS BODY MOVEMENTS: 3 or more discrete body or limb movements [Y] 2/2 BREATHING MOVEMENTS: 1 or more episodes of breathing lasting at least 30 seconds [Y] 2/2 SP: A single deepest vertical pocket of amniotic fluid greater than 2 cm [Y] 2/2 SP: 10.7 cm. This is in low-normal range. Total score: 8 US/US OB BPP w non-stress IMPRESSION: NORMAL BIOPHYSICAL PROFILE Impression dictated by: Rema Farmer M.D.10/23/2024 11:44 AM Dictation Location: [place] [address] Electronically authenticated by: [id number] Y Date: 10/23/2024 11:44 Dictated By: Rema Farmer M.D. Signed By: 10/23/24 1146 DD/ 1144 TD/TT: Blackjack Pit Boss: [facility] Radiology Study observation (narrative) [facility] OB BPP W NON-STRESS Ordered By: Radiologist Radiology on 10-23-2024 [facility] [employer] Work Phone: Urinalysis macro (dipstick) panel (U)on 10-17-2024 Bilirubin, UA Negative Negative - 4(70) +++ mg/dL [facility] Blood, UA Negative Negative - 50 Calderon/mcL [facility] Clarity, UA Clear [facility] PositiveIDme re Color, UA Yellow [facility] Glucose, UA Positive Negative - 1999(110) ++++ mg/dL [facility] Comment on above: 250 Interpretation and review of laboratory results Abnormal [facility] Ketones, UA Positive Negative - 160(16) ++++ mg/dL [facility] Comment on above: trace Leukocytes, UA Trace Negative - 500+++ Eyal/mcL [facility] Nitrite, UA Negative Negative - Positive [facility] pH, UA 6.5 5 - 9 [facility] e Protein, UA Positive Negative - 1999(20) ++++ mg/dL [facility] Comment on above: trace Spec Grav, UA 1.025 1 - 1.03 [facility] Urobilinogen, UA 0.2 0.2 - 12 mg/dL [facility] Urinalysis macro (dipstick) panel (U)on 10-03-2024 Bilirubin, UA Negative Negative - 4(70) +++ mg/dL [facility] Blood, UA Negative Negative - 50 Calderon/mcL [facility] Clarity, UA Clear [facility] re Color, UA Yellow [facility] PositiveIDcar e Glucose, UA Negative Negative - 1999(110) ++++ mg/dL [facility] Interpretation and review of laboratory results Normal [facility] Ketones, UA Negative Negative - 160(16) ++++ mg/dL [facility] Leukocytes, UA Negative Negative - 500+++ Eyal/mcL [facility] Nitrite, UA Negative Negative - Positive [facility] pH, UA 6 5 - 9 [facility] e Protein, UA Negative Negative - 1999(20) ++++ mg/dL [facility] Spec Grav, UA 1.01 1 - 1.03 [facility] Urobilinogen, UA 0.2 0.2 - 12 mg/dL [facility] US OB FOLLOW UP TRANSABDOMIN [...] II, MD, PHD at 20-Sep-2024 09:03:12 AM [facility] Normal Not Available Comment on above: Order Comment: US OB SCAN FOR GROWTH Estimated Date of Delivery: 11/19/24 Gestational Age as of 09/05/2024: 29w2d Urinalysis macro (dipstick) panel (U)on 09-19-2024 Bilirubin, UA Negative Negative - 4(70) +++ mg/dL [facility] Blood, UA Negative Negative - 50 Calderon/mcL [facility] Healthcare Clarity, UA Clear [facility] Color, UA Yellow [facility] Glucose, UA Negative Negative - 1999(110) ++++ mg/dL [facility] Interpretation and review of laboratory results Normal [facility] Ketones, UA Negative Negative - 160(16) ++++ mg/dL [facility] Leukocytes, UA Negative Negative - 500+++ Eyal/mcL [facility] Nitrite, UA Negative Negative - Positive [facility] pH, UA 7.5 5 - 9 [facility] Health[facility] e Protein, UA Negative Negative - 1999(20) ++++ mg/dL [facility] Spec Grav, UA 1.02 1 - 1.03 [facility] Urobilinogen, UA 0.2 0.2 - 12 mg/dL [facility] Urinalysis macro (dipstick) panel (U)on 09-05-2024 Bilirubin, UA Negative Negative - 4(70) +++ mg/dL [facility] Blood, UA Negative Negative - 50 Calderon/mcL [facility] Healthcare Clarity, UA Clear [facility] Color, UA Micaela [facility] Glucose, UA Positive Negative - 1999(110) ++++ mg/dL [facility] Comment on above: 100 Interpretation and review of laboratory results Abnormal [facility] Ketones, UA Negative Negative - 160(16) ++++ mg/dL [facility] Leukocytes, UA Positive Negative - 500+++ Eyal/mcL [facility] Healthcare Comment on above: small Nitrite, UA Negative Negative - Positive [facility] pH, UA 6 5 - 9 [facility] Protein, UA Negative Negative - 1999(20) ++++ mg/dL [facility] Spec Grav, UA 1.01 1 - 1.03 [facility] Urobilinogen, UA 0.2 0.2 - 12 mg/dL [facility] US OB LIMITED 1+ FETUSESon 0 [...] II, MD, PHD at 29-Aug-2024 08:00:42 AM [facility] Normal Not Available Comment on above: Order Comment: OB INCOMPLETE ANATOMY Estimated Date of Delivery: 11/19/24 Gestational Age as of 08/21/2024: 28w0d GLUCOSE TOLERANCE 3 HOURon 0 08-24-2024 GLUCOSE TOLERANCE 3 HOUR High mg/dL [facility] Comment on above: GLU FAST 96H (<95) C ol: 08/24/24 1004 GLU 1HR 189H (<180) Col: 08/24/24 1105 GLU 2HR 149 (<155) Col: 08/24/24 1207 GLU 3HR 119 (<140) Col: 08/24/24 1308 Interpretation and review of laboratory results Abnormal [facility] US OB LIMITED 1+ FETUSESon 0 08-02-2024 OB LIMITED 1+ FETUSES TITLE OF EXAM: [...] UA Negative Negative - 4(70) +++ mg/dL [facility] Blood, UA Negative Negative - 50 Calderon/mcL [facility] Clarity, UA Clear [facility] re Color, UA Yellow [facility] Glucose, UA Negative Negative - 1999(110) ++++ mg/dL [facility] Interpretation and review of laboratory results Abnormal [facility] Ketones, UA Negative Negative - 160(16) ++++ mg/dL [facility] Leukocytes, UA Trace Negative - 500+++ Eyal/mcL [facility] Nitrite, UA Negative Negative - Positive [facility] pH, UA 7 5 - 9 [facility] Protein, UA Negative Negative - 1999(20) ++++ mg/dL [facility] Spec Grav, UA 1.02 1 - 1.03 [facility] Urobilinogen, UA 0.2 0.2 - 12 mg/dL [facility] AFP, SERUM, OPEN SPINA BIFID Aon 07-16-2024 AFP MOM 1.03 . [facility] Health[facility] e AFP VALUE 76.2 ng/mL . [facility] Health[facility] e COMMENT: Comment . [facility] Comment on above: Winifred Burch , Ph.D., [facility] Director References: Available Upon Request. Multiples Of Median Cutoffs For AFP Elevations Moffett 2.5 Black 2.8 IDD 2.0 Twins 4.5 Abbreviation Definitions IDD - Insulin Dep Diabetes OSBR - Open Spina Bifida Risk For further inquiries contact [facility] at [phone]. This test was developed and its performance characteristics determined by [facility]. It has not been cleared or approved by the Food and Drug Administration. Performed at: [facility] [address], [place] [id number] Technician Test Systems: Babita Carranza [facility], Phone: [phone] GEST. AGE ON COLLECTION DATE 21.6 . weeks [facility] GESTAT. AGE BASED ON LMP . [facility] Comment on above: Recalculations are n ot recommended when gestational dating by LMP and ultrasound are within 10 days. INSULIN DEP DIABETES No . [facility] INTERPRETATION Comment . [facility] Comment on above: Interpretation: Scre en [...] Customer Services to discuss available options. The [employer] recommends amniocentesis be offered to women age 35 and older. [age] H[age]ARY [age] [facility] MULTIPLE GESTATION No . [facility] [place] [address] . [facility] torres RACE Other . [facility] [employer] RESULTS Report . [facility] PositiveIDcar e TEST RESULTS: Negative . [facility] Health care WEIGHT 135 . lbs [facility] Healthcar e N N LMP [id number] [phone] 19 N 1 Y 135 N N N N N Other Race [facility] PositiveIDcar e IGP,APTIMA HPV,AGE GDLNon AGE GDLN ACOG TESTING Note . [facility] Comment on above: TESTS RESULT FLAG UN ITS REF RANGE LAB Clinician Provided Cytology Information Source.............Cervix Other.............. No. of containers..01 ThinPrep Vial Age Denice INGRAM Bettye... FLAG LEGEND: L-Low Normal,H-High Normal,LL-Alert Low,HH-Alert High <-Panic Low,>-Panic High,A-Abnormal,AA-Critical Abnormal Performed at: 01 =G [facility] [address] [address] Grecia Wright MD, IGP, RFX APTIMA HPV ASCU Note . [facility] Comment on above: TESTS RESULT FLAG U NITS REF RANGE LAB DIAGNOSIS: 02 NEGATIVE FOR INTRAEPITHELIAL LESION OR MALIGNANCY. Specimen adequacy: 02 Satisfactory for evaluation. No endocervical component is identified. An endocervical component is not commonly seen in the patient. Performed by: Claribel Minor, Research Electrician ([facility]) . 02 Note: Note 02 The Pap [...] <-Panic Low,>-Panic High,A-Abnormal,AA-Critical Abnormal Performed at: [address] [address] Grecia Wright MD, Performed at: =[facility] [address] [id number] Technician Test Systems: Grecia Wright MD, Phone: [phone] Performed at: [address] [id number] [employer]: Grecia Wright MD, Phone: [phone] SPATULA-ALONE CERVIX [facility] Health[facility] e RECURRENT VAGINITIS (HTRX)on 06-26-2024 ATOPOBIUM VAGINAE 15.84 Abnormal [facility] ATOPOBIUM VAGINAE Detected Abnormal [facility] BVAB 2,3 (BACTERIAL VAGINOSIS ASSOCIATED BACTERIA 2, 3); MOBILUNCUS SPP 24.558 Abnormal [facility] BVAB 2,3 (BACTERIAL VAGINOSIS ASSOCIATED BACTERIA 2, 3); MOBILUNCUS SPP Detected Abnormal [facility] Healthcare SOHAM ALBICANS, PARAPSILOSIS, TROPICALIS 0 [facility] SOHAM ALBICANS, PARAPSILOSIS, TROPICALIS Not detected [facility] SOHAM GLABRATA 0 [facility] SOHAM GLABRATA Not detected [facility] SOHAM KRUSEI 0 [facility] SOHAM KRUSEI Not detected [facility] CHLAMYDIA TRACHOMATIS 0 [facility] CHLAMYDIA TRACHOMATIS Not detected [facility] GARDNERELLA VAGINALIS 21.394 Abnormal [facility] GARDNERELLA VAGINALIS Detected Abnormal [facility] Interpretation and review of laboratory results Abnormal [facility] MEGASPHAERA (TYPES 1, 2) 0 [facility] MEGASPHAERA (TYPES 1, 2) Not detected [facility] MYCOPLASMA GENITALIUM 0 [facility] MYCOPLASMA GENITALIUM Not detected [facility] NEISSERIA GONORRHOEAE 0 [facility] NEISSERIA GONORRHOEAE Not detected [facility] TET B, TET M 18.181 Abnormal [facility] TET B, TET M Detected Abnormal [facility] are TRICHOMONAS VAGINALIS 0 [facility] TRICHOMONAS VAGINALIS Not detected [facility] Urinalysis macro (dipstick) panel (U)on 06-25-2024 Bilirubin, UA Negative Negative - 4(70) +++ mg/dL [facility] Blood, UA Negative Negative - 50 Calderon/mcL [facility] Healthcare Clarity, UA Clear [facility] Color, UA Yellow [facility] Health[facility] e Glucose, UA Negative Negative - 1999(110) ++++ mg/dL [facility] Interpretation and review of laboratory results Abnormal [facility] Ketones, UA Negative Negative - 160(16) ++++ mg/dL [facility] Leukocytes, UA Trace Negative - 500+++ Eyal/mcL [facility] Nitrite, UA Negative Negative - Positive [facility] pH, UA 6 5 - 9 [facility] e Protein, UA Negative Negative - 1999(20) ++++ mg/dL [facility] Spec Grav, UA 1.01 1 - 1.03 [facility] Urobilinogen, UA 0.2 0.2 - 12 mg/dL [facility] Urinalysis macro (dipstick) panel (U)on 05-28-2024 Bilirubin, UA Negative Negative - 4(70) +++ mg/dL [facility] Blood, UA Negative Negative - 50 Calderon/mcL [facility] Healthcare Clarity, UA Clear [facility] Healthca re Color, UA Yellow [facility] Glucose, UA Negative Negative - 1999(110) ++++ mg/dL [facility] Interpretation and review of laboratory results Normal [facility] Ketones, UA Negative Negative - 160(16) ++++ mg/dL [facility] Leukocytes, UA Negative Negative - 500+++ Eyal/mcL [facility] Healthcare Nitrite, UA Negative Negative - Positive [facility] pH, UA 7 5 - 9 [facility] Protein, UA Negative Negative - 1999(20) ++++ mg/dL [facility] Spec Grav, UA 1.015 1 - 1.03 [facility] Urobilinogen, UA 0.2 0.2 - 12 mg/dL [facility] e ALL CBC WITH AUTO DIFFon BASOPHILS ABSOLUTE AUTO 0 [facility] Basophils/100 WBC (Bld) 0.2 % 0.2 - 2.0 % [facility] Eosinophils/100 WBC (Bld) 1.1 % 0.9 - 7.0 % [facility] Erythrocyte distribution width (RBC) [Ratio] 12.2 % 11.0 - 15.0 % [facility] Hematocrit (Bld) [Volume fraction] 36.9 % 36.0 - 48.0 % [facility] e Hemoglobin (Bld) [Mass/Vol] 12.8 g/dL 12.0 - 16.0 g/dL [facility] IMMATURE GRANULOCYTES ABS AUTO 0.03 [facility] Immature granulocytes/100 WBC (Bld) 0.3 % 0.0 - 0.5 % [facility] Interpretation and review of laboratory results Abnormal [facility] LYMPHOCYTES ABSOLUTE AUTO 1.8 [facility] Lymphocytes/100 WBC (Bld) 19.8 % Low 20.5 - 60.0 % [facility] MCH (RBC) [Entitic mass] 29.9 pg 26.7 - 34.0 pg [facility] MCHC (RBC) [Mass/Vol] 34.7 g/dL 29.9 - 35.2 g/dL [facility] MCV (RBC) [Entitic vol] 86.2 fL 81.0 - 99.0 fL [facility] MONOCYTES ABSOLUTE AUTO 0.5 [facility] Monocytes/100 WBC (Bld) 5.5 % 1.7 - 12.0 % [facility] NEUTROPHILS ABSOLUTE AUTO 6.5 [facility] Neutrophils/100 WBC (Bld) 73.1 % 43.0 - 75.0 % [facility] Platelet mean volume (Bld) [Entitic vol] 9.4 fL Low 9.5 - 13.5 fL [facility] EO # 0.1 [facility] PLT 309 [facility] RBC 4.28 [facility] WBC 9 [facility] e [facility] HCG ( test) Ql (U)o n 04-27-2024 Interpretation and review of laboratory results Abnormal [facility] Preg Test, Ur Positive [facility] Urinalysis macro (dipstick) panel (U)on 04-27-2024 Bilirubin, UA Negative Negative - 4(70) +++ mg/dL [facility] Blood, UA Negative Negative - 50 Calderon/mcL [facility] Clarity, UA Clear [facility] re Color, UA Yellow [facility] Glucose, UA Negative Negative - 1999(110) ++++ mg/dL [facility] Interpretation and review of laboratory results Abnormal [facility] Ketones, UA Negative Negative - 160(16) ++++ mg/dL [facility] Leukocytes, UA Trace Negative - 500+++ Eyal/mcL [facility] Nitrite, UA Negative Negative - Positive [facility] pH, UA 7.5 5 - 9 [facility] e Protein, UA Negative Negative - 1999(20) ++++ mg/dL [facility] Spec Grav, UA 1.02 1 - 1.03 [facility] Urobilinogen, UA 0.2 0.2 - 12 mg/dL [facility] Registrationon 02-17-2021 Registration [id number]# 1.00CD:127 Normal [facility] Consent for Treatmenton Consent for Treatment [id number]# 1.00CD:127 Normal [facility] Vital Signs Date Time Vital Sign Value Performing Clinician Layne armando 10-24-2024 13:40-0400 Body weight 65.77 kg Wale Kenny DO Work Phone: [facility] 10-24-2024 13:40-0400 Diastolic blood pressure 62 mm[Hg] Wale Kenny DO Work Phone: [facility] 10-24-2024 13:40-0400 Systolic blood pressure 104 mm[Hg] Wale Kenny DO Work Phone: [facility] 10-17-2024 13:21-0400 Body weight 66.13 kg Zoey WADE Work Phone: [facility] 10-17-2024 13:21-0400 Diastolic blood pressure 70 mm[Hg] Zoey Charito PA Work Phone: [facility] 10-17-2024 13:21-0400 Systolic blood pressure 110 mm[Hg] Zoey Martin PA Work Phone: [facility] 10-03-2024 14:16-0400 Body weight 64.86 kg Wale Kenny DO Work Phone: [facility] 10-03-2024 14:16-0400 Diastolic blood pressure 68 mm[Hg] Wale Kenny DO Work Phone: [facility] 10-03-2024 14:16-0400 Systolic blood pressure 110 mm[Hg] Wale Kenny DO Work Phone: [facility] 09-19-2024 14:50-0400 Body weight 65.77 kg Zoey Charito PA Work Phone: [facility] 09-19-2024 14:50-0400 Diastolic blood pressure 70 mm[Hg] Zoey Charito PA Work Phone: [facility] 09-19-2024 14:50-0400 Systolic blood pressure 118 mm[Hg] Zoey Martin PA Work Phone: [facility] 09-05-2024 13:56-0500 Body weight 65.23 kg Wale Kenny DO Work Phone: [facility] 09-05-2024 13:56-0500 Diastolic blood pressure 60 mm[Hg] Wale Kenny DO Work Phone: [facility] 09-05-2024 13:56-0500 Systolic blood pressure 118 mm[Hg] Wale Kenny DO Work Phone: [facility] 08-21-2024 13:34-0500 Body weight 64.41 kg Zoey Charito PA Work Phone: [facility] 08-21-2024 13:34-0500 Diastolic blood pressure 68 mm[Hg] Zoey Charito PA Work Phone: [facility] 08-21-2024 13:34-0500 Systolic blood pressure 102 mm[Hg] Zoey WADE Work Phone: [facility] 07-24-2024 14:29-0500 Body weight 64.32 kg Wale Kenny DO Work Phone: [facility] 07-24-2024 14:29-0500 Diastolic blood pressure 72 mm[Hg] Wale Kenny DO Work Phone: [facility] 07-24-2024 14:29-0500 Systolic blood pressure 100 mm[Hg] Wale Kenny DO Work Phone: [facility] 06-25-2024 14:52-0500 Body weight 61.15 kg Zoey WADE Work Phone: [facility] 06-25-2024 14:52-0500 Diastolic blood pressure 70 mm[Hg] Zoey WADE Work Phone: [facility] 06-25-2024 14:52-0500 Systolic blood pressure 104 mm[Hg] Zoey WADE Work Phone: [facility] 05-28-2024 14:27-0500 Body weight 59.88 kg Wale Kenny DO Work Phone: [facility] 05-28-2024 14:27-0500 Diastolic blood pressure 62 mm[Hg] Wale Kenny DO Work Phone: [facility] 05-28-2024 14:27-0500 Systolic blood pressure 100 mm[Hg] Wale Kenny DO Work Phone: [facility] 04-27-2024 10:48-0400 Body weight 57.61 kg [facility] 04-27-2024 10:48-0400 Diastolic blood pressure 68 mm[Hg] [facility] 04-27-2024 10:48-0400 Systolic blood pressure 100 mm[Hg] [facility] Encounters Encounter Date Encounter Type Care Provider Facility Start: 10-24-2024 End: 10-24-2024 Bamboo flowsheet Wale Kenny DO Work Phone: [facility] Start: 10-24-2024 End: 10-24-2024 Bamboo flowsheet Wale Kenny DO Work Phone: [facility] Start: 10-24-2024 End: 10-24-2024 flow sheet Wale Kenny DO Work Phone: [facility] Comment on above: Third trimester preg zac; 36 weeks gestation of Start: 10-23-2024 End: 10-23-2024 Clinisync Result Encounter Generic External Data Provider [facility] Unsolicited Start: 10-23-2024 End: 10-23-2024 Clinisync Result Encounter Generic External Data Provider [facility] External [facility] Unsolicited Start: 10-17-2024 End: 10-17-2024 Bamboo flowsheet Zoey [...] 08-21-2024 flow sheet Zoey WADE Work Phone: [facility] Comment on above: Encounter for follow -up ultrasound of anatomy; Second trimester ; 27 weeks gestation of Start: 08-02-2024 End: 08-02-2024 ambulatory WALE KENNY Not Available Start: 07-24-2024 End: 07-24-2024 flow sheet Wale Kenny DO Work Phone: [facility] Comment on above: 23 weeks gestation o f ; Second trimester ; Diabetes mellitus screening; Constipation, unspecified constipation type Start: 07-24-2024 End: 07-24-2024 ambulatory WALE KENNY Not Available Start: 07-24-2024 End: 07-24-2024 Bamboo flowsheet Wale Kenny DO Work Phone: [facility] Start: 07-24-2024 End: 07-24-2024 Bamboo flowsheet Wale Kenny DO Work Phone: [facility] Start: 07-13-2024 End: 07-16-2024 Clinisync Result Encounter Generic External Data Provider [facility] External Department Unsolicited Start: 07-13-2024 End: 07-16-2024 Clinisync Result Encounter Generic External Data Provider [facility] External Department Unsolicited Start: 06-25-2024 End: 06-25-2024 Patient encounter procedure Zoey WADE Work Phone: [facility] Start: 06-25-2024 End: 06-25-2024 flow sheet Zoey WADE Work Phone: [facility] Comment on above: 19 weeks gestation o f ; Second trimester ; Screening, , for anatomic survey; Exposure to STD; Vaginal discharge; Well woman exam with routine gynecological exam Start: 06-25-2024 End: 06-25-2024 ambulatory ZOEY MCNEILL Not Available Start: 06-25-2024 End: 06-25-2024 Bamboo flowsheet Zoey WADE Work Phone: [facility] Start: 06-25-2024 End: 07-02-2024 Bamboo flowsheet Zoey WADE Work Phone: [facility] Start: 06-25-2024 End: 07-02-2024 Clinisync Result Encounter Zoey Huntyinka WADE Work Phone: [facility] Unsolicited Start: 06-25-2024 End: 06-26-2024 External Result Encounter Zoey Huntyinka WADE Work Phone: [facility] Unsolicited [...] Date Procedure Procedure Detail Performing Clinician Start: 10-24-2024 Urnls dip stick/tabl et rgnt non-auto w/o micrscp Wale Kenny DO Work Phone: Start: 10-23-2024 US OB BPP W NON-STRESS Generic External Data Provider Start: 10-17-2024 Urnls dip stick/tabl et rgnt [...] Influenza vaccination Influenz a Vaccine (Season Ended) [facility] Start: 10-31-2024 End: 10-31-2024 Patient encounter procedure 10/31/2024 1:50 PM EDT Routine [facility] [address] [place] [id number] Zoey Mcneill PA [address] [place] [address] [facility] Start: 10-24-2024 End: 10-24-2025 CULTURE, GROUP B STREP WITH SUSCEPTIBLITY CULTURE, GROUP B STREP WITH SUSCEPTIBLITY Lab Routine Third trimester Expected: 10/24/2024, Expires: 10/24/2025 [facility] Work Phone: Comment on above: Expected: 10/24/2024 , Expires: 10/24/2025 Start: 10-24-2024 End: 10-24-2024 Patient encounter procedure 10/24/2024 1:30 PM EDT Routine [facility] [address] [place] [phone] Wale Cox DO [address] [place] [address] [facility] Start: 10-17-2024 End: 10-17-2025 US biophysical profile w non stress test US biophysical profile w non stress test Imaging Routine 35 weeks gestation of Third trimester Gestational diabetes mellitus (GDM), antepartum, gestational diabetes method of control unspecified Expected: 10/17/2024 (Approximate), Expires: 10/17/2025 [facility] Work Phone: Comment on above: Expected: 10/17/2024 (Approximate), Expires: 10/17/2025 Start: 10-17-2024 End: 10-17-2024 Patient encounter procedure [facility] Comment on above: Arrived Start: 10-03-2024 End: 10-03-2024 Patient encounter procedure [facility] Comment on above: Arrived Start: 09-19-2024 End: 09-19-2024 Patient encounter procedure 09/19/2024 3:20 PM EDT Routine [facility] [address] [place] [phone] Zoey Mcneill PA [address] [place] [address] [facility] Start: 09-19-2024 End: 09-19-2024 Professional / ancillary services management 09/19/2024 2:00 PM EDT Ancillary Procedure [facility] [address] [place] [address] [facility] Start: 09-05-2024 End: 09-05-2024 Patient encounter procedure 09/05/2024 1:50 PM EST Routine [facility] [address] [place] [address] Wale Cox, DO [address] [place] [address] [facility] Start: 08-27-2024 End: 08-27-2024 Professional / ancillary services management 08/27/2024 12:30 PM EST Ancillary Procedure [facility] [address] [place] [phone] [facility] Start: 08-21-2024 End: 08-21-2025 US for US OB limited 1+ fetuses Imaging Routine Encounter for follow-up ultrasound of anatomy Expected: 08/21/2024, Expires: 08/21/2025 [facility] Work Phone: Comment on above: Expected: 08/21/2024 , Expires: 08/21/2025 Start: 08-21-2024 End: 08-21-2024 Patient encounter procedure 08/21/2024 1:00 PM EST Routine [facility] [address] [place] [phone] Zoey Mcneill PA [address] [place], [place] [id number] [facility] Start: 08-02-2024 End: 08-02-2024 Professional / ancillary services management 08/02/2024 10:30 AM EST Ancillary Procedure [facility] [address] [place] [address] [facility] Start: 07-24-2024 End: 07-24-2024 Patient encounter procedure [facility] Comment on above: Arrived Start: 07-24-2024 [...] mellitus screening Expected: 07/24/2024 (Approximate), Expires: 07/24/2025 [facility] Comment on above: Expected: 07/24/2024 (Approximate), Expires: 07/24/2025 Start: 06-25-2024 End: 06-25-2024 Patient encounter procedure [facility] Comment on above: Arrived Start: 06-25-2024 End: 07-26-2024 Alpha fetoprotein, maternal Alpha fetoprotein, maternal Lab Routine 19 weeks gestation of Second trimester Expected: 06/25/2024 (Approximate), Expires: 07/26/2024 [facility] Comment on above: Expected: 06/25/2024 (Approximate), Expires: 07/26/2024 Start: 06-25-2024 End: 06-25-2025 US for US OB ANATOMY SINGLE W US OB CERVICAL LENGTH Imaging Routine Screening, , for anatomic survey Expected: 06/25/2024 (Approximate), Expires: 06/25/2025 [facility] Comment on above: Expected: 06/25/2024 (Approximate), Expires: 06/25/2025 Start: 05-28-2024 End: 05-28-2025 US for US OB ANATOMY SINGLE W US OB CERVICAL LENGTH Imaging Routine Second trimester Screening, , for anatomic survey Expected: 05/28/2024 (Approximate), Expires: 05/28/2025 [facility] Work Phone: Comment on above: Expected: 05/28/2024 (Approximate), Expires: 05/28/2025 Start: 05-28-2024 End: 05-28-2024 Patient encounter procedure 05/28/2024 1:40 PM EST Routine [facility] [address] [place] [phone] Wale Cox DO [address] [place] [address] [facility] Start: 04-27-2024 End: 04-27-2025 ABO/Rh ABO/Rh Lab Routine Missed menses , unspecified gestational age Expected: 04/27/2024 (Approximate), Expires: 04/27/2025 [facility] Comment on above: Expected: 04/27/2024 (Approximate), Expires: 04/27/2025 Start: 04-27-2024 End: 04-27-2025 Blood type and Indirect antibody screen panel - Blood Type and screen Lab Routine Missed menses , unspecified gestational age Expected: 04/27/2024 (Approximate), Expires: 04/27/2025 [facility] Work Phone: Comment on above: Expected: 04/27/2024 (Approximate), Expires: 04/27/2025 Start: 04-27-2024 End: 04-27-2025 Drugs of abuse panel - Urine by Screen method Rapid drug screen, urine Lab Routine , unspecified gestational age Encounter for supervision of normal first in first trimester Expected: 04/27/2024 (Approximate), Expires: 04/27/2025 [facility] Comment on above: Expected: 04/27/2024 (Approximate), Expires: 04/27/2025 Start: 04-27-2024 End: 04-27-2025 US Pelvis transvaginal US OB transvaginal Imaging Routine Missed menses Expected: 04/27/2024 (Approximate), Expires: 04/27/2025 [facility] Comment on above: Expected: 04/27/2024 (Approximate), Expires: 04/27/2025 Start: 03-11-2024 Influenza vaccination Influenza Vacc ine (#1) [facility] Bacteria identified in Urine by Culture Urine culture Microbiology Routine Missed menses Ordered: 04/27/2024 [facility] Comment on above: Ordered: 04/27/2024 CBC W Auto Different ial panel - Blood CBC and differential Lab Routine Missed menses , unspecified gestational age Ordered: 04/27/2024 [facility] Comment on above: Ordered: 04/27/2024 CHLAMYDIA TRACHOMATI S (GENITO/STI) CHLAMYDIA TRACHOMATIS (GENITO/STI) Lab Routine Exposure to STD Ordered: 06/25/2024 [facility] Comment on above: Ordered: 06/25/2024 Cytology Cervical or vaginal smear or scraping study Pap Smear Pathology and Cytology Routine Well woman exam with routine gynecological exam Ordered: 06/25/2024 [facility] Work Phone: Comment on above: Ordered: 06/25/2024 Hemoglobin A1c/Hemoglobin.total in Blood Hemoglobin A1c Lab Routine Missed menses , unspecified gestational age Ordered: 04/27/2024 [facility] Comment on above: Ordered: 04/27/2024 Hepatitis B virus surface Ag [Presence] in Serum or Plasma by Immunoassay Hepatitis B surface antigen Lab Routine Missed menses , unspecified gestational age Ordered: 04/27/2024 [facility] Comment on above: Ordered: 04/27/2024 Hepatitis C virus Ab [Presence] in Serum or Plasma by Immunoassay Hepatitis C antibody Lab Routine Missed menses , unspecified gestational age Ordered: 04/27/2024 [facility] Comment on above: Ordered: 04/27/2024 HIV-1/HIV-2 antigen/antibody combination immunoassay HIV-1 and HIV-2 antibodies Lab Routine Missed menses , unspecified gestational age Ordered: 04/27/2024 [facility] Comment on above: Ordered: 04/27/2024 Neisseria gonorrhoea e DNA [Presence] in Unspecified specimen by CEDRICK with probe detection Neisseria gonorrhea DNA probe, direct Lab Routine Exposure to STD Ordered: 06/25/2024 [facility] Comment on above: Ordered: 06/25/2024 Reagin Ab [Presence] in Serum by RPR RPR Lab Routine Missed menses , unspecified gestational age Ordered: 04/27/2024 [facility] Comment on above: Ordered: 04/27/2024 Rubella antibody, IgG Rubella an tibody, IgG Lab Routine Missed menses , unspecified gestational age Ordered: 04/27/2024 [facility] Comment on above: Ordered: 04/27/2024 SURESWAB(R) ADVANCED VAGINITIS PLUS, TMA SURESWAB(R) ADVANCED VAGINITIS PLUS, TMA Pathology and Cytology Routine Vaginal discharge Ordered: 06/25/2024 [facility] Comment on above: Ordered: 06/25/2024 End: 09-05-2025 US for US OB follow up transabdominal approach Imaging Routine Gestational diabetes mellitus (GDM), antepartum, gestational diabetes method of control unspecified [id number] for 4 Occurrences starting 09/05/2024 until 09/05/2025 [facility] Work Phone: Comment on above: [id number] for 4 Occurr ences starting 09/05/2024 until 09/05/2025 Payers Date Payer Category Payer [facility] [id number] 2018 Unknown [id number] 1995 Unknown [id number] 2.16.84 [id number] 1995 Unknown [id number] 2.16.84 [id number] 1995 Unknown [id number] 2.16.84 [id number] 1995 Unknown [id number] 2.16.84 0.1.123746.3.579.2.9 1995 Unknown [id number] 2.16.84 [id number] 1995 Unknown [id number] 2.16.84 [id number] 1995 Unknown [id number] 2.16.84 0.1.523573.3.579.2.9 1995 Unknown [id number] 2.16.84 0.1.172825.3.579.2.9 1995 Unknown [id number] 2.16.84 0.1.892636.3.579.2.9 1995 Unknown [id number] 2.16.84 [id number] 1995 Unknown [id number] 2.16.84 0.1.855136.3.579.2.9 1995 Unknown [id number] 2.16.84 [id number] Social History Date Type Detail Facility Tobacco smoking stat [facility] Tobacco smoking consumption unknown [facility] [...] meal for a total of 4times daily. [id number] Start: 08-30-2024 End: 09-29-2024 1 each by In Vit ro route Daily Use to check FSBS four times daily [id number] Start: 08-30-2024 End: 09-29-2024 Use as instructed [id number] Start: 09-26-2024 End: 10-17-2024 Clinical Notes 04-27-2024 to 10-24-2024 Rema Espinoza LPN - 10/24/2024 1:30 PM MAURO Diego - 10/17/2024 1:10 PM Tee Espinoza LPN - 10/03/2024 2:00 PM Tee Espinoza LPN - 09/05/2024 1:50 PM MAURO Chinchilla - 08/21/2024 1:00 PM EST Note Date & Type Note Facility 10-24-2024 History of Presen t illness Narrative Reason for Appointment: Patient ID: Cole Batista is a 28 y.o. female who presents for Routine Visit Patient presents today for Return OB appointment. MEDICATIONS Current Outpatient Medications Medication Instructions Alcohol Swabs (Alcohol Prep Pad) 70 % pads 1 Pad, Topical, Daily, Use four times daily to check FSBS. Blood Glucose Monitoring Suppl ([employer] [employer] Glucometer) w/Device kit 1 kit, Does not [...] Constitutional: Appearance: Normal appearance. She is well-developed. Genitourinary: Vulva normal. Cardiovascular: Rate and Rhythm: Normal rate and [...] nursing note reviewed. Exam conducted with a assistant plant manager present. Vitals: There is no height or weight on file to calculate BMI. BP: 104/62 Patient's last menstrual period was 02/13/2024. ASSESSMENT & PLAN ICD-10-CM 1. Third trimester Z34.93 POCT urinalysis dipstick manually resulted CULTURE, GROUP B STREP WITH SUSCEPTIBLITY CULTURE, GROUP B STREP WITH SUSCEPTIBLITY 2. 36 weeks gestation of Z3A.36 Patient is doing well but has complaints of being tired and having maternal discomfort due to . Patient verbalized frequent movement and was instructed to perform kick counts three times per day. labor precautions were given, LARC consent was signed/declined, and GBS was obtained. Cervical check was performed and patient is 1cm dilated. Orders Placed This Encounter Procedures CULTURE, GROUP B STREP WITH SUSCEPTIBLITY POCT urinalysis dipstick manually resulted Follow Up: Patient is to return to office in 1 week for routine OB appointment Documented by Rema Espinoza LPN on behalf of: Wale Cox DO documented in this encounter [facility] 10-17-2024 History of Presen t illness Narrative [...] of: MAURO Quesada documented in this encounter [facility] 10-03-2024 History of Presen t illness Narrative [...] nursing note reviewed. Exam conducted with a assistant plant manager present. Vitals: There is no height or [...] Wale Cox DO documented in this encounter [facility] 09-05-2024 History of Presen t illness Narrative Reason for Appointment: Patient ID: Cole Batista is a 28 y.o. female who presents for Routine Visit Patient presents today for Return OB appointment. MEDICATIONS Current Outpatient Medications Medication Instructions Alcohol Swabs (Alcohol Prep Pad) 70 % pads 1 Pad, Topical, Daily, Use four times daily to check FSBS. Blood Glucose Monitoring Suppl ([employer] Glucometer) w/Device kit 1 kit, Does not [...] nursing note reviewed. Exam conducted with a assistant plant manager present. Vitals: There is no height or [...] Wale Cox DO documented in this encounter [facility] 08-21-2024 History of Presen t illness [...] of: MAURO Quesada documented in this encounter [facility] 07-24-2024 History of Presen t illness [...] nursing note reviewed. Exam conducted with a assistant plant manager present. Vitals: There is no height or [...] Wale Cox DO documented in this encounter [facility] 06-25-2024 History of Presen t illness [...] obtained without difficulty and patient was given [facility] order to have obtained. Orders Placed [...] nursing note reviewed. Exam conducted with a assistant plant manager present. Vitals: There is no height or [...] obtained without difficulty and patient was given [facility] order to have obtained. Orders Placed [...] of: MAURO Quesada documented in this encounter [facility] 05-28-2024 History of Presen t illness [...] nursing note reviewed. Exam conducted with a assistant plant manager present. Vitals: There is no height or [...] or undercooked meat, and stay away from [facility]. Patient has been consulted regarding any [...] Wale Cox DO documented in this encounter [facility] 04-27-2024 History of Presen t illness Narrative [...] or undercooked meat, and stay away from [facility]. Patient has also been advised to [...] by: Sophy Bhakta documented in this encounter [facility] Evaluation note Diagnosis Missed menses , [...] HealthcareEvaluation note* Diagnosis Third trimester state, incidental 36 weeks gestation of documented in this encounter [facility] N[facility]ative* Keisha NatarajnaDORY - 09/19/2024 3:20 PM EDT Reason for Appointment: Patient ID: Cole Batista is a 28 y.o. female who presents for Routine Visit Patient presents today for Return OB appointment. MEDICATIONS Current Outpatient Medications Medication Instructions Alcohol Swabs (Alcohol Prep Pad) 70 % pads 1 Pad, Topical, Daily, Use four times daily to check FSBS. Blood Glucose Monitoring Suppl ([employer] [employer] Glucometer) w/Device kit 1 kit, Does not [...] nursing note reviewed. Exam conducted with a assistant plant manager present. Vitals: There is no height or [...] and content) DATE CREATED AUTHOR 02/18/2021 [facility] DATE CREATED AUTHOR AUTHOR'S ORGANIZ ATION 10/19/2024 [facility] EPIC Reason for Visit (unrecogniz ed section and content) Reason Comments Initial Visit Reason Comments Routine Visit Care Teams (unrecognized sec tion and content) Contact Center Consultant Relationship Specialty Start Date End Date Steffen Marshall MD [address] [facility] [address] [place] [address] PCP - General Family Medicine 11/16/22 Contact Center Consultant Relationship Specialty Start Date End Date Steffen Marshall MD [address] [facility] [address] [place] [address] PCP - General Family Medicine 11/16/22 Contact Center Consultant Relationship Specialty Start Date End Date Steffen Marshall MD [address] [facility] [address] [place] [address] PCP - General Family Medicine 11/16/22 Contact Center Consultant Relationship Specialty Start Date End Date Steffen Marshall MD [address] [facility] [address] [place] [address] PCP - General Family Medicine 11/16/22 Contact Center Consultant Relationship Specialty Start Date End Date Steffen Marshall MD [address] [facility] [address] [place] [address] PCP - General Family Medicine 11/16/22 Contact Center Consultant Relationship Specialty Start Date End Date Steffen Marshall MD [address] [facility] [address] [place] [address] PCP - General Family Medicine 11/16/22 Contact Center Consultant Relationship Specialty Start Date End Date Steffen Marshall MD [address] [facility] [address] [place] [address] PCP - General Family Medicine 11/16/22 Contact Center Consultant Relationship Specialty Start Date End Date Steffen Marshall MD [address] [facility] [address] [place] [address] PCP - General Family Medicine 11/16/22 Contact Center Consultant Relationship Specialty Start Date End Date Steffen Marshall MD [address] [facility] [address] [place] [address] PCP - General Family Medicine 11/16/22 Contact Center Consultant Relationship Specialty Start Date End Date Steffen Marshall MD [address] [facility] [address] [place] [address] PCP - General Family Medicine 11/16/22 Contact Center Consultant Relationship Specialty Start Date End Date Steffen Marshall MD [address] [facility] [address] [place] [address] PCP - General Family Medicine 11/16/22 Contact Center Consultant Relationship Specialty Start Date End Date Steffen Marshall MD [address] [facility] [address] [place] [address] PCP - General Family Medicine 11/16/22 Contact Center Consultant Relationship Specialty Start Date End Date Steffen Marshall MD [address] [facility] [address] [place] [address] PCP - General Family Medicine 11/16/22 Contact Center Consultant Relationship Specialty Start Date End Date Steffen Marshall MD [address] [facility] [address] [place] [address] PCP - General Family Medicine 11/16/22 Contact Center Consultant Relationship Specialty Start Date End Date Steffen Marshall MD [address] [facility] [address] [place] [address] PCP - General Family Medicine 11/16/22 FOR [...] BE BASED ON THE PRIMARY CLINICAL RECORDS. [facility]. provides no warranty or guarantee of the accuracy or completeness of information in this document.
[2024-10-26 11:09] VITALS: BP 111/59; PULSE 83
== END 2024-10-26 11:35 | disposition home or self-care (01) ==
LOC: FBCO 11:01 → FBC 11:06
PROVIDERS: PCP Family Medicine; Visit Provider Obstetrics & Gynecology
DX: O24.419 Gestational diabetes mellitus in pregnancy, unspecified control (principal); Z3A.36 36 weeks gestation of pregnancy
CPT/HCPCS: 59025

== ENCOUNTER 2024-10-30 10:58 | Outpatient (OUT) | payer BC, SELFPAY ==
--- NOTE | 2024-10-30 11:01 | US_ITS ---
[place] [id number] Patient Name: COLE TIJERINA MRN: [id number] date: 1995 Sex: F Assigned Patient Location: [facility] Current Patient Location: Accession/Order Number: [id number] Exam Date: 10/30/2024 13:27 Report Date: 10/30/2024 13:28 At the request of: KELSEY MCNEILL Procedure: US OB BPP w non-stress Ultrasound biophysical profile HISTORY: Gestational diabetes There is adequate breathing movement, gross body movement, tone and amniotic fluid volume for total score of 8 out of 8. The amniotic fluid index is 10.6 cm within normal limits. The heart rate 135 bpm. US/US OB BPP w non-stress IMPRESSION: Adequate ultrasound biophysical profile. Impression dictated by: Baldemar López M.D.10/30/2024 1:28 PM Dictation Location: [place] [id number] Electronically authenticated by: [id number] Y Date: 10/30/2024 13:28
[2024-10-30 11:24] VITALS: BP 107/62; PULSE 64
== END 2024-10-30 11:57 | disposition home or self-care (01) ==
LOC: US 10:58 → FBC 10:59
PROVIDERS: PCP Family Medicine; Visit Provider Physician Assistant
DX: O24.419 Gestational diabetes mellitus in pregnancy, unspecified control (principal); Z3A.37 37 weeks gestation of pregnancy
CPT/HCPCS: 76818

== ENCOUNTER 2024-11-06 10:56 | Outpatient (OUT) | payer BC, SELFPAY ==
--- NOTE | 2024-11-06 | US_ITS ---
[address] [address] Patient Name: COLE TIJERINA MRN: [id number] date: 1995 Sex: F Assigned Patient Location: [facility] Current Patient Location: [facility] Accession/Order Number: [id number] Exam Date: 11/06/2024 12:08 Report Date: 11/06/2024 12:10 At the request of: KELSEY MCNEILL Procedure: US OB BPP w non-stress Biophysical profile. Reason for exam: Gestational diabetes. COMPARISON: BPP 10/30/2024. Technique. Transabdominal images of the gravid uterus were obtained. FINDINGS: The technologist reports a BPP of 8 out of 8. SP is 8.5 cm. heart rate 116 bpm. US/US OB BPP w non-stress Impression: BPP 8 out of 8. Impression dictated by: Ki Virk Jr. DSharriOSharri 11/06/2024 12:10 PM Dictation Location: [place] [address] Electronically authenticated by: [id number] Y Date: 11/06/2024 12:10
[2024-11-06 11:49] VITALS: PULSE 84
== END 2024-11-06 12:16 | disposition home or self-care (01) ==
LOC: US 10:56 → FBC 10:58
PROVIDERS: PCP Family Medicine; Visit Provider Physician Assistant
DX: O24.419 Gestational diabetes mellitus in pregnancy, unspecified control (principal)
CPT/HCPCS: 76818

== ENCOUNTER 2024-11-09 11:01 | Outpatient (OUT) | payer BC, SELFPAY ==
--- NOTE | 2024-11-09 11:06 | US_ITS ---
[address] [address] Patient Name: COLE TIJERINA MRN: [id number] date: 1995 Sex: F Assigned Patient Location: [facility] Current Patient Location: [facility] Accession/Order Number: [id number] Exam Date: 11/09/2024 11:48 Report Date: 11/09/2024 11:48 At the request of: WALE BRICEÑO DO Procedure: US OB amniotic fluid vol SP ultrasound. Reason for exam: Low SP. COMPARISON: None. FINDINGS: Transabdominal imaging of the gravid uterus was obtained. SP measures 7.3 cm. heart rate 118 bpm. presentation is cephalic at time of scanning. US/US OB amniotic fluid vol IMPRESSION: SP 7.3. Impression dictated by: Ki Virk Jr., D.O. 11/09/2024 11:48 AM [facility] Electron[facility] by: [id number] Y Date: 11/09/2024 11:48
[2024-11-09 11:24] VITALS: BP 108/56; PULSE 79
== END 2024-11-09 13:51 | disposition home or self-care (01) ==
LOC: FBCO 11:01 → FBC 11:05
PROVIDERS: PCP Family Medicine; Visit Provider Obstetrics & Gynecology
DX: O24.419 Gestational diabetes mellitus in pregnancy, unspecified control (principal); Z3A.38 38 weeks gestation of pregnancy
CPT/HCPCS: 59025; 76815

== ENCOUNTER 2024-11-13 18:19 | Inpatient (IN) | payer BC, SELFPAY ==
[2024-11-13] VITALS (13 sets, daily range): BP systolic 99–125; BP diastolic 55–73; PULSE 70–96
[2024-11-13 18:57] LABS: Hematocrit 31.2 % (36.0-48.0); Mean Corpuscular HGB Conc 32.1 g/dL (29.9-35.2); Mean Corpuscular Hemoglobin 24.5 pg (26.7-34.0); Mean Corpuscular Volume 76.5 fL (81.0-99.0); Mean Platelet Volume 10.2 fL (9.5-13.5); Platelet Count 321 10^3/uL (150-450); Red Blood Count 4.08 10^6/uL (4.20-5.40); Red Cell Distribution Width 14.3 % (11.0-15.0); White Blood Count 9.4 10^3/uL (4.0-11.0)
[2024-11-13 19:07] LABS: Amphetamine Screen Urine NEGATIVE (NEGATIVE); Barbiturates Screen Urine NEGATIVE (NEGATIVE); Benzodiazepines Screen Urine NEGATIVE (NEGATIVE); Buprenorphine Screen Urine NEGATIVE (NEGATIVE); Cannabinoid Screen Urine POSITIVE (NEGATIVE); Cocaine Screen Urine NEGATIVE (NEGATIVE); Methadone Screen Urine NEGATIVE (NEGATIVE); Methamphetamines Screen Urine NEGATIVE (NEGATIVE); Opiate Screen Urine NEGATIVE (NEGATIVE); Oxycodone Screen Urine NEGATIVE (NEGATIVE); Phencyclidine Screen Urine NEGATIVE (NEGATIVE); Tricyclic Antidepressant Urine NEGATIVE (NEGATIVE)
[2024-11-13] MEDS: MISOPROSTOL 100 MCG TABLET 25 MCG VAGINAL ×2 (19:54→22:56)
[2024-11-14] VITALS (88 sets, daily range): BP systolic 86–154; BP diastolic 49–92; PULSE 59–131; TEMP 35.6–37.4
[2024-11-14] MEDS: MISOPROSTOL 100 MCG TABLET 25 MCG VAGINAL (01:57)
[2024-11-14] MEDS: OXYTOCIN/0.9 % SODIUM CHLORIDE 10 UNITS/500 ML PLAST..BAG 6 UNIT IV (06:00)
[2024-11-14] MEDS: 0.9 % SODIUM CHLORIDE 1,000 ML 125 ML IV ×2 (06:00→15:20)
[2024-11-14] MEDS: NALBUPHINE HCL 10 MG/ML AMPULE IV (08:40)
[2024-11-14] MEDS: 0.9 % SODIUM CHLORIDE 1,000 ML 1000 ML IV (09:18)
[2024-11-14] MEDS: ROPIVACAINE HCL/PF 400 MG/200 ML PREMIX 6 MG EPIDURAL (09:52)
[2024-11-14] MEDS: ONDANSETRON PF 4 MG/2 ML VIAL IV (12:37)
[2024-11-14] MEDS: LIDOCAINE HCL 1% 200 MG/20 ML MDV INJ (20:02)
[2024-11-14] MEDS: OXYTOCIN/0.9 % SODIUM CHLORIDE 20 UNITS/1,000 ML PLAST..BAG 125 UNIT IV (20:12)
[2024-11-14] MEDS: CARBOPROST TROMETHAMINE 250 MCG/ML 1 ML VIAL IM (20:13)
--- NOTE | 2024-11-14 20:29 | PM.OBPRCVD ---
Procedure Intrapartal events: None Induction method: per misoprostol protocol Delivery augmentation: rupture of membranes and pitocin Delivery monitor: none Route of delivery: Episiotomy Description: midline L&D Laceration Description: perineal - 3rd degree Delivery repair: Vicryl Estimated blood loss (mL): 450 Anesthesia type: Spinal Disposition: floor Infant Delivery date: 11/14/24 Gender: male presentation: vertex Placental delivery description: Spontaneous cord description: 3 Vessels
[2024-11-14] MEDS: IBUPROFEN 600 MG TABLET PO (21:10)
[2024-11-14] MEDS: GLYCERIN/WITCH HAZEL PADS 1 PAD TOPICAL (21:10)
[2024-11-14] MEDS: BENZOCAINE/MENTHOL 85 GRAM SPRAY BOTTLE 1 APPLIC TOPICAL (21:11)
[2024-11-15] VITALS (15 sets, daily range): BP systolic 84–112; BP diastolic 50–56; PULSE 89–121; TEMP 36.1–37.4
[2024-11-15 06:23] LABS: Mean Corpuscular Hemoglobin 24.6 pg (26.7-34.0); Mean Corpuscular Volume 76.8 fL (81.0-99.0); Mean Platelet Volume 9.6 fL (9.5-13.5); Platelet Count 263 10^3/uL (150-450); Red Blood Count 2.85 10^6/uL (4.20-5.40); Red Cell Distribution Width 14.4 % (11.0-15.0); White Blood Count 25.7 10^3/uL (4.0-11.0)
[2024-11-15] MEDS: IBUPROFEN 600 MG TABLET PO ×3 (06:25→21:36)
[2024-11-15 06:27] LABS: Hematocrit 21.9 % (36.0-48.0)
[2024-11-15 06:33] LABS: Lymphocytes Absolute Manual 2.57 10^3/uL (1.20-3.80); Monocytes Absolute Manual 1.02 10^3/uL (0.30-0.80)
--- NOTE | 2024-11-15 08:20 | PM.OBPN ---
OB - PN: Subj Subjective Patient comments: no complaints and pain well controlled [place] status: doing well Exam Constitutional Vital Signs, click to edit/add: Last Vital Signs Temp 97.0 F L 11/15/24 07:34 Pulse 95 H 11/15/24 08:05 Resp 12 11/15/24 07:35 BP 92/55 11/15/24 08:05 O2 Del Method Room Air 11/15/24 07:35 Documenting provider has reviewed patient's vital signs: yes Common normals: no apparent distress Respiratory Common normals: normal respiratory effort and clear to auscultation bilaterally Cardio Common normals: regular rate and regular rhythm GI Common normals: Normal to inspection, nondistended, normoactive bowel sounds present Extremity Common normals: no clubbing, cyanosis or edema and no calf tenderness Results Labs Labs: Short CBC 11/15/24 Range/Units 06:13 WBC 25.7 H (4.0-11.0) 10^3/uL Hgb 7.0 L (12.0-16.0) g/dL Hct 21.9 L* (36.0-48.0) % Plt Count 263 (150-450) 10^3/uL OB - PN: A/P Plan - Vaginal Delivery day: 1 Plan: routine care Time Spent with Patient Time: Total time spent is greater than 50% in coordination of care (as documented) at patient's floor/unit and/or counseling patient: Total time spent with greater than 50% in coordination of care (as documented) at patient's floor/unit and/or counseling patient: less than 15 minutes
--- NOTE | 2024-11-15 08:21 | PM.OBPN ---
OB - PN: Subj Subjective Patient comments: no complaints [place] status: doing well feeding status: exclusively Exam Constitutional Vital Signs, click to edit/add: Last Vital Signs Temp 97.0 F L 11/15/24 07:34 Pulse 89 11/15/24 08:20 Resp 12 11/15/24 07:35 BP 94/50 11/15/24 08:20 O2 Del Method Room Air 11/15/24 07:35 Documenting provider has reviewed patient's vital signs: yes Common normals: no apparent distress General appearance: cooperative Orientation/consciousness: Yes awake, Yes oriented to person, Yes oriented to place and Yes oriented to time HENMT Common normals: normocephalic Eye Common normals: EOMs intact bilaterally General eye: normal appearance of both eyes Neck & C-Spine Common normals: full ROM General: normal visual inspection Lymph Lymphatic: no lymphadenopathy noted Chest Common normals: inspection of chest normal Respiratory Common normals: normal respiratory effort Effort & inspection: able to speak in complete sentences Auscultation: clear to auscultation bilaterally Cardio Common normals: regular rate and regular rhythm Rate: regular rate Rhythm: regular rhythm GI Common normals: Normal to inspection, nondistended, normoactive bowel sounds present Inspection: normal to inspection Palpation: soft Common normals: no CVA tenderness Back & Pelvis Common normals: no CVA tenderness Thoracic spine/upper back: normal to inspection Extremity Common normals: normal to inspection Neuro Common normals: oriented x3 Sensorium/orientation: awake, alert, oriented to person, oriented to place and oriented to time Psych Common normals: mental status grossly normal, thought process normal, cooperative, affect normal, speech normal, activity/motor behavior normal, denies hallucinations, denies homicidal ideation and denies suicidal ideation Attitude: calm Results Labs Labs: Short CBC 11/15/24 Range/Units 06:13 WBC 25.7 H (4.0-11.0) 10^3/uL Hgb 7.0 L (12.0-16.0) g/dL Hct 21.9 L* (36.0-48.0) % Plt Count 263 (150-450) 10^3/uL OB - PN: A/P Assessment and Plan (1) Term : Plan - Vaginal Delivery day: 1 Plan: routine care Time Spent with Patient Time: Total time spent is greater than 50% in coordination of care (as documented) at patient's floor/unit and/or counseling patient: Total time spent with greater than 50% in coordination of care (as documented) at patient's floor/unit and/or counseling patient: less than 15 minutes
[2024-11-15] MEDS: ACETAMINOPHEN 325 MG TABLET 650 MG PO (12:28)
[2024-11-15] MEDS: DOCUSATE SODIUM 100 MG CAPSULE PO (21:36)
[2024-11-16] VITALS (7 sets, daily range): BP systolic 88–105; BP diastolic 49–64; PULSE 78–95; TEMP 36.5–36.9
[2024-11-16 06:37] LABS: Basophils Percent Auto 0.1 % (0.2-2.0); Eosinophils Absolute Auto 0.2 10^3/uL (0.0-0.7); Immature Granulocytes Abs Auto 0.48 10^3/uL (0.00-0.03); Immature Granulocytes Pct Auto 2.2 % (0.0-0.5); Lymphocytes Percent Auto 9.3 % (20.5-60.0); Mean Corpuscular HGB Conc 31.5 g/dL (29.9-35.2); Mean Corpuscular Volume 79.5 fL (81.0-99.0); Mean Platelet Volume 9.7 fL (9.5-13.5); Monocytes Absolute Auto 1.4 10^3/uL (0.3-0.8); Monocytes Percent Auto 6.3 % (1.7-12.0); Neutrophils Absolute Auto 17.5 10^3/uL (1.4-6.5); Neutrophils Percent Auto 81.1 % (43.0-75.0); Platelet Count 225 10^3/uL (150-450); Red Blood Count 2.68 10^6/uL (4.20-5.40); Red Cell Distribution Width 15.2 % (11.0-15.0); White Blood Count 21.6 10^3/uL (4.0-11.0)
[2024-11-16 06:43] LABS: Hematocrit 21.3 % (36.0-48.0); Hemoglobin 6.7 g/dL (12.0-16.0)
--- NOTE | 2024-11-16 08:05 | PM.OBPN ---
OB - PN: Subj Subjective Patient comments: no complaints [place] status: doing well feeding status: exclusively Exam Constitutional Vital Signs, click to edit/add: Last Vital Signs Temp 97.8 F 11/16/24 03:42 Pulse 78 11/16/24 03:42 Resp 14 11/15/24 19:45 BP 88/49 L 11/16/24 03:42 O2 Del Method Room Air 11/15/24 19:45 Documenting provider has reviewed patient's vital signs: yes Common normals: no apparent distress General appearance: cooperative Orientation/consciousness: Yes awake, Yes oriented to person, Yes oriented to place and Yes oriented to time HENMT Common normals: normocephalic Eye Common normals: EOMs intact bilaterally General eye: normal appearance of both eyes Neck & C-Spine Common normals: full ROM General: normal visual inspection Lymph Lymphatic: no lymphadenopathy noted Chest Common normals: inspection of chest normal Respiratory Common normals: normal respiratory effort Effort & inspection: able to speak in complete sentences Auscultation: clear to auscultation bilaterally Cardio Common normals: regular rate and regular rhythm Rate: regular rate Rhythm: regular rhythm GI Common normals: Normal to inspection, nondistended, normoactive bowel sounds present Inspection: normal to inspection Auscultation: normoactive bowel sounds Palpation: soft Common normals: no CVA tenderness Back & Pelvis Common normals: no CVA tenderness Thoracic spine/upper back: normal to inspection Extremity Common normals: normal to inspection and full ROM Neuro Common normals: oriented x3 Sensorium/orientation: awake, alert, oriented to person, oriented to place and oriented to time Psych Common normals: mental status grossly normal, thought process normal, cooperative, affect normal, speech normal, activity/motor behavior normal, denies hallucinations, denies homicidal ideation and denies suicidal ideation Appearance: grossly normal Attitude: calm Results Labs Labs: Short CBC 11/16/24 Range/Units 06:30 WBC 21.6 H (4.0-11.0) 10^3/uL Hgb 6.7 L* (12.0-16.0) g/dL Hct 21.3 L* (36.0-48.0) % Plt Count 225 (150-450) 10^3/uL OB - PN: A/P Assessment and Plan (1) Term : Plan - Vaginal Delivery day: 1 Plan: routine care Time Spent with Patient Time: Total time spent is greater than 50% in coordination of care (as documented) at patient's floor/unit and/or counseling patient: Total time spent with greater than 50% in coordination of care (as documented) at patient's floor/unit and/or counseling patient: less than 15 minutes
[2024-11-16] MEDS: IBUPROFEN 600 MG TABLET PO (08:43)
[2024-11-16] MEDS: DOCUSATE SODIUM 100 MG CAPSULE PO (08:43)
[2024-11-16] MEDS: 0.9 % SODIUM CHLORIDE 250 ML 10 ML IV (08:44)
[2024-11-16] MEDS: GLYCERIN/WITCH HAZEL PADS 1 PAD TOPICAL (12:06)
--- NOTE | 2024-11-16 13:29 | SWNOTE1 ---
SW consulted due to positive THC drug screen on admission. No other concerns from nursing. SW met with pt and father of baby. Family in room as well, but pt and father of baby voiced it was fine to come in and talk about anything. This is their first child together. They do have everything they need at home for baby. Pt is breast feeding and voiced it is going well. They voiced they have great support at home between family, friend, and neighbors. SW did speak with pt about post depression, she voiced understanding. Pt voiced her and baby are doing well and planning on going home today. SW did speak with them about positive marijuana screen on admission. Pt admits to THC use, smoking it, due to stress and to help her sleep. Voiced she has a stressful job. At this time pt is unsure if she will continue use. Father and pt stated they will NOT do it around baby. SW advised pt and father of baby that SW is mandated reported and has to make report to CPS. They voiced understanding and no further questions at this time. SW to follow as needed. Report made to [facility] CPS. HIPAA form filled out and sent to
--- NOTE | 2024-11-16 13:38 | SWNOTE1 ---
Correction to previous note, [facility].
[2024-11-17 17:11] LABS: Cannabinoid Positive (.); Carboxy THC Conf, MS, UR 55 ng/mL (Cutoff=10)
== END 2024-11-16 15:00 | disposition home or self-care (01) | DRG 768 ==
PROVIDERS: Admitting Provider Obstetrics & Gynecology; PCP Family Medicine; Visit Provider Obstetrics & Gynecology
DX: O24.424 Gestational diabetes mellitus in childbirth, insulin controlled (principal); Z37.0 Single live birth; O70.20 Third degree perineal laceration during delivery, unspecified; D62 Acute posthemorrhagic anemia; O90.81 Anemia of the puerperium; Z3A.39 39 weeks gestation of pregnancy; Z91.013 Allergy to seafood
CPT/HCPCS: 36415; 36430; 51702; 59050; 59410; 80307; 80349; 85007; 85025; 85027; 86850; 86900; 86901; J0665; J2300; J2405; J2795; P9016

== ENCOUNTER 2024-11-19 10:30 | Outpatient (OUT) | payer BC, SELFPAY ==
--- OUTSIDE RECORDS SUMMARY | 2024-11-19 10:53 | XMS_ITS | CCD ---
Author Organization [facility] Care Team Providers Care Medical Manager Name Role Phone Aundrea LINDA, Steffen Jackson Primary Care Provider ZOEY MCNEILL Attending Unavailable KENNY, WALE Attending Unavailable KENNY, WALE Referring Unavailable ZOEY MCNEILL Attending Unavailable KENNY, WALE Attending Unavailable KENNY, WALE Attending Unavailable ZOEY MCNEILL Attending Unavailable KENNY, WALE Attending Unavailable VIRGIE MATHIS Attending Unavailable KENNY, WALE Attending Unavailable KENNY, WALE Attending Unavailable CHARITO, ZOEY Attending Unavailable KENNY, WALE Attending Unavailable Allergies Allergy Classification Reported Allergen(s) Allergy Type Date of Onset Reaction(s) Facility (20 sources) Shrimp product Propensity to adverse reactions 4 [facility] Medications Current Medications Medication Drug Class(es) Dates Sig (Normalized) Sig (Original) Blood Glucose Monitoring Suppl (D-Care Glucometer) w/Device kit (20 sources) Start: 08-30-2024 End: 08-30-2025 Blood Glucose [...] Discontinued isopropyl alcohol 0.7 ml/ml medicated pad (20 sources) Start: 08-30-2024 Alcohol Swabs (Alcohol Prep Pad) 70 % pads Indications: Gestational diabetes mellitus (GDM), antepartum, gestational diabetes method of control unspecified , Elevated glucose tolerance test Apply 1 Pad topically Daily Use four times daily to check FSBS. 150 each 3 08/30/2024 Active polysaccharide iron complex 391 mg oral capsule (20 sources) Start: 08-07-2024 End: 08-07-2025 take 1 [...] sources) Constipation; Translations: [Constipation, unspecified] 07-24-2024 Episodic Residual codes; unclassified (2 sources) [...] [36 weeks gestation of ] 10-24-2024 Episodic Residual codes; unclassified (2 sources) Gestation period, 37 weeks; Translations: [37 weeks gestation of ] 10-31-2024 Episodic Residual codes; unclassified (2 sources) Gestation period, 38 weeks; Translations: [38 weeks gestation of ] 11-06-2024 Episodic Residual codes; unclassified (2 sources) Gestation period, 39 weeks; Translations: [39 weeks gestation of ] 11-12-2024 Episodic Past or Other Problems Problem Classification Problem Date Documented Da te Episodic/Chronic Hemorrhage during ; abruptio placenta; placenta previa (20 sources) Placenta previa marginalis; Translations: [Partial placenta previa NOS or without hemorrhage, unspecified trimester] Onset: 07-05-2024 07-05-2024 Episodic Other complications of (20 sources) Headache; Translations: [Other specified related conditions, unspecified trimester] Onset: 05-28-2024 05-28-2024 Episodic Other and delivery including normal (20 [...] Test Name Value Interpretation Reference Range Facility ALL CBC WITH AUTO DIFFon BASOPHILS ABSOLUTE AUTO 0 [facility] Basophils/100 WBC (Bld) 0.1 % Low 0.2 - 2.0 % [facility] Eosinophils/100 WBC (Bld) 1 % 0.9 - 7.0 % [facility] Erythrocyte distribution width (RBC) [Ratio] 15.2 % High 11.0 - 15.0 % [facility] Hematocrit (Bld) [Volume fraction] 21.3 % Critically low 36.0 - 48.0 % [facility] Comment on above: RESULTS CALLED TO GONZALO Cui RN @BY Gary Hernandez [place] at 0640 Hemoglobin (Bld) [Mass/Vol] 6.7 g/dL Critically low 12.0 - 16.0 g/dL [facility] Comment on above: RESULTS CALLED TO GONZALO Cui RN @BY Gary Hernandez [place] at 0640 IMMATURE GRANULOCYTES ABS AUTO 0.48 High [facility] Immature granulocytes/100 WBC (Bld) 2.2 % High 0.0 - 0.5 % [facility] Interpretation and review of laboratory results Abnormal [facility] LYMPHOCYTES ABSOLUTE AUTO 2 [facility] Lymphocytes/100 WBC (Bld) 9.3 % Low 20.5 - 60.0 % [facility] MCH (RBC) [Entitic mass] 25 pg Low 26.7 - 34.0 pg [facility] MCHC (RBC) [Mass/Vol] 31.5 g/dL 29.9 - 35.2 g/dL [facility] MCV (RBC) [Entitic vol] 79.5 fL Low 81.0 - 99.0 fL [facility] MONOCYTES ABSOLUTE AUTO 1.4 High [facility] Monocytes/100 WBC (Bld) 6.3 % 1.7 - 12.0 % [facility] NEUTROPHILS ABSOLUTE AUTO 17.5 High [facility] Neutrophils/100 WBC (Bld) 81.1 % High 43.0 - 75.0 % [facility] Platelet mean volume (Bld) [Entitic vol] 9.7 fL 9.5 - 13.5 fL [facility] TB EO # 0.2 [facility] TB PLT 225 [facility] RBC 2.68 Low [facility] WBC 21.6 High [facility] ALL CBC WITH AUTO DIFFon Erythrocyte distribution width (RBC) [Ratio] 14.4 % 11.0 - 15.0 % [facility] Hematocrit (Bld) [Volume fraction] 21.9 % Critically low 36.0 - 48.0 % [facility] Comment on above: RESULTS CALLED TO GONZALO Odonnell RN @BY Gary Hernandez [place] at 0625 Hemoglobin (Bld) [Mass/Vol] 7 g/dL Low 12.0 - 16.0 g/dL [facility] Interpretation and review of laboratory results Abnormal [facility] MCH (RBC) [Entitic mass] 24.6 pg Low 26.7 - 34.0 pg [facility] MCHC (RBC) [Mass/Vol] 32 g/dL 29.9 - 35.2 g/dL [facility] MCV (RBC) [Entitic vol] 76.8 fL Low 81.0 - 99.0 fL [facility] Platelet mean volume (Bld) [Entitic vol] 9.6 fL 9.5 - 13.5 fL [facility] PLT 263 [facility] RBC 2.85 Low [facility] WBC 25.7 High [facility] HMHP CBC WITH PLATELET NO DI FFERENTIALon 11-13-2024 Erythrocyte distribution width (RBC) [Ratio] 14.3 % 11.0 - 15.0 % [facility] Hematocrit (Bld) [Volume fraction] 31.2 % Low 36.0 - 48.0 % [facility] Hemoglobin (Bld) [Mass/Vol] 10 g/dL Low 12.0 - 16.0 g/dL [facility] MCH (RBC) [Entitic mass] 24.5 pg Low 26.7 - 34.0 pg [facility] MCHC (RBC) [Mass/Vol] 32.1 g/dL 29.9 - 35.2 g/dL [facility] MCV (RBC) [Entitic vol] 76.5 fL Low 81.0 - 99.0 fL [facility] Platelet mean volume (Bld) [Entitic vol] 10.2 fL 9.5 - 13.5 fL [facility] TBH PLT 321 [facility] RBC 4.08 Low [facility] WBC 9.4 [facility] No Panel Informationon 11-13 Interpretation and review of laboratory results Abnormal [facility] DRUG SCREEN RAPID (URINE )on 11-13-2024 AMPHETAMINE SCREEN URINE Negative NEGATIVE [facility] BARBITURATES SCREEN URINE Negative NEGATIVE [facility] BENZODIAZEPINES SCREEN URINE Negative NEGATIVE [facility] BUPRENORPHINE SCREEN URINE Negative NEGATIVE [facility] Comment on above: DRUG CLASS TEST SYST EM CUT-OFF CONCENTRATIONS ARE FOLLOWS: AMP (Amphetamine): 500 ng/mL BAR (Barbiturates): 200 ng/mL BZO (Benzodiazepines): 150 ng/mL BUP (Buprenorphine): 10 ng/mL BUBBA (Cocaine): 150 ng/mL mAMP (Methamphetamine): 500 ng/mL MTD (Methadone): 200 ng/mL OPI (Opiates): 100 ng/mL OXY (Oxycodone): 100 ng/mL PCP (Phencyclidine): 25 ng/mL THC (Cannabinoids): 50 ng/mL TCA (Trycyclic Antidepressants): 300 ng/mL CANNABINOID SCREEN URINE Positive Abnormal NEGATIVE [facility] COCAINE SCREEN URINE Negative NEGATIVE [facility] METHADONE SCREEN URINE Negative NEGATIVE [facility] METHAMPHETAMINES SCREEN URINE Negative NEGATIVE [facility] OPIATE SCREEN URINE Negative NEGATIVE [facility] OXYCODONE SCREEN URINE Negative NEGATIVE [facility] PHENCYCLIDINE SCREEN URINE Negative NEGATIVE [facility] TRICYCLIC ANTIDEPRESSANT URINE Negative NEGATIVE [facility] Urinalysis macro (dipstick) panel (U)on 11-12-2024 Bilirubin, UA Negative Negative - 4(70) +++ mg/dL [facility] Blood, UA Negative Negative - 50 Calderon/mcL [facility] Clarity, UA Clear [facility] Color, UA Yellow [facility] Glucose, UA Negative Negative - 1999(110) ++++ mg/dL [facility] Interpretation and review of laboratory results Abnormal [facility] Ketones, UA Negative Negative - 160(16) ++++ mg/dL [facility] Leukocytes, UA Trace Negative - 500+++ Eyal/mcL [facility] Nitrite, UA Negative Negative - Positive [facility] pH, UA 7 5 - 9 [facility] Protein, UA Negative Negative - 1999(20) ++++ mg/dL [facility] Spec Grav, UA 1.015 1 - 1.03 [facility] Urobilinogen, UA 0.2 0.2 - 12 mg/dL [facility] US AMNIOTIC FLUID VOLUMEon 0 11-09-2024 [place] [address] Ultrasound Report Signed Patient: COLE BATISTA MR#: [id number] : 1995 Acct:[id number] Age/Sex: 28 / F ADM Date: 11/09/24 Loc: [facility] 252-[address]: Wale Cox D.O. Ordering Physician: Wale Cox D.O. Date of Service: 11/09/24 Procedure(s): US OB amniotic fluid vol Accession Number(s): [id number] cc: STEFFEN MARSHALL ; Wale Cox D.O. [place] [address] Patient Name: COLE BATISTA MRN: [facility]:[id number] date: 1995 Sex: F Assigned Patient Location: [facility] Current Patient Location: [facility] Accession/Order Number: [id number] Exam Date: 11/09/2024 11:48 Report Date: 11/09/2024 11:48 At the request of: WALE COX DO Procedure: US OB amniotic fluid vol SP ultrasound. Reason for exam: Low SP. COMPARISON: None. FINDINGS: Transabdominal imaging of the gravid uterus was obtained. SP measures 7.3 cm. heart rate 118 bpm. presentation is cephalic at time of scanning. US/US OB amniotic fluid vol IMPRESSION: SP 7.3. Impression dictated by: Ki Virk Jr., D.O. 11/09/2024 11:48 AM Dictation Location: [place] [address] Electronically authenticated by: [id number] Y Date: 11/09/2024 11:48 Dictated By: Ki Virk M.D. Signed By: 11/09/24 1151 DD/ 1148 TD/TT: Machine Assembler For Puller Over: [facility] Radiology, Radiologist, - 11/09/2024 [place] [address] Ultrasound Report Signed Patient: COLE BATISTA MR#: [id number] : 1995 Acct:[id number] Age/Sex: 28 / F ADM Date: 11/09/24 Loc: [facility] 252-[address]: Wale Cox D.O. Ordering Physician: Wale Cox D.O. Date of Service: 11/09/24 Procedure(s): US OB amniotic fluid vol Accession Number(s): [id number] cc: STEFFEN MARSHALL ; Wale Cox D.O. The [place] [id number] Patient Name: COLE BATISTA MRN: [facility]:[id number] date: 1995 Sex: F Assigned Patient Location: [facility] Current Patient Location: [facility] Accession/Order Number: [id number] Exam Date: 11/09/2024 11:48 Report Date: 11/09/2024 11:48 At the request of: WALE COX DO Procedure: US OB amniotic fluid vol SP ultrasound. Reason for exam: Low SP. COMPARISON: None. FINDINGS: Transabdominal imaging of the gravid uterus was obtained. SP measures 7.3 cm. heart rate 118 bpm. presentation is cephalic at time of scanning. US/US OB amniotic fluid vol IMPRESSION: SP 7.3. Impression dictated by: Ki Virk Jr., D.O. 11/09/2024 11:48 AM Dictation Location: [place] [address] Electronically authenticated by: [id number] Y Date: 11/09/2024 11:48 Dictated By: Ki Virk M.D. Signed By: 11/09/24 1151 DD/ 1148 TD/TT: Machine Assembler For Puller Over: [facility] Radiology Study observation (narrative) [facility] US AMNIOTIC FLUID VOLUMEOrde red By: Radiologist Radiology on 11-09-2024 [facility] Work Phone: US OB BPP W NON-STRESS on 11-06-[address] [address] Ultrasound Report Signed Patient: COLE BATISTA MR#: [id number] : 1995 Acct:[id number] Age/Sex: 28 / F ADM Date: 11/06/24 Loc: [facility] 250-[address]: Zoey Mcneill Ordering Physician: Zoey Mcneill Date of Service: 11/06/24 Procedure(s): US OB BPP w non-stress Accession Number(s): [id number] cc: STEFFEN MARSHALL ; Zoey Mcneill The [address] [address] Patient Name: COLE BATISTA MRN: [facility]:[id number] date: 1995 Sex: F Assigned Patient Location: [facility] Current Patient Location: [facility] Accession/Order Number: [id number] Exam Date: 11/06/2024 12:08 Report Date: 11/06/2024 12:10 At the request of: ZOEY MCNEILL Procedure: US OB BPP w non-stress Biophysical profile. Reason for exam: Gestational diabetes. COMPARISON: BPP 10/30/2024. Technique. Transabdominal images of the gravid uterus were obtained. FINDINGS: The technologist reports a BPP of 8 out of 8. SP is 8.5 cm. heart rate 116 bpm. US/US OB BPP w non-stress Impression: BPP 8 out of 8. Impression dictated by: Ki Virk Jr., D.O. 11/06/2024 12:10 PM Dictation Location: [place] [address] Electronically authenticated by: [id number] Y Date: 11/06/2024 12:10 Dictated By: Ki Virk M.D. Signed By: 11/06/24 1213 DD/ 1210 TD/TT: Machine Assembler For Puller Over: [facility] Radiology, Radiologist, - 11/06/2024 The [place] [id number] Ultrasound Report Signed Patient: COLE BATISTA MR#: [id number] : 1995 Acct:[id number] Age/Sex: 28 / F ADM Date: 11/06/24 Loc: [facility] 250-[address]: Zoey Mcneill Ordering Physician: Zoey Mcneill Date of Service: 11/06/24 Procedure(s): US OB BPP w non-stress Accession Number(s): [id number] cc: STEFFEN MARSHALL ; Zoey Mcneill [place] [address] Patient Name: COLE BATISTA MRN: [id number] date: 1995 Sex: F Assigned Patient Location: [facility] Current Patient Location: [facility] Accession/Order Number: [id number] Exam Date: 11/06/2024 12:08 Report Date: 11/06/2024 12:10 At the request of: ZOEY MCNEILL Procedure: US OB BPP w non-stress Biophysical profile. Reason for exam: Gestational diabetes. COMPARISON: BPP 10/30/2024. Technique. Transabdominal images of the gravid uterus were obtained. FINDINGS: The technologist reports a BPP of 8 out of 8. SP is 8.5 cm. heart rate 116 bpm. US/US OB BPP w non-stress Impression: BPP 8 out of 8. Impression dictated by: Ki Virk Jr., D.O. 11/06/2024 12:10 PM Dictation Location: [place] [address] Electronically authenticated by: [id number] Y Date: 11/06/2024 12:10 Dictated By: Ki Virk M.D. Signed By: 11/06/24 1213 DD/ 1210 TD/TT: Machine Assembler For Puller Over: [facility] Radiology Study observation (narrative) [facility] US OB BPP W NON-STRESS Ordered By: Radiologist Radiology on 11-06-2024 [facility] Work Phone: Urinalysis macro (dipstick) panel (U)on 11-06-2024 Bilirubin, UA Negative Negative - 4(70) +++ mg/dL [facility] Blood, UA Negative Negative - 50 Calderon/mcL [facility] Clarity, UA Clear [facility] Color, UA Yellow [facility] Glucose, UA Negative Negative - 1999(110) ++++ mg/dL [facility] Interpretation and review of laboratory results Abnormal [facility] Ketones, UA Negative Negative - 160(16) ++++ mg/dL [facility] Leukocytes, UA Positive Negative - 500+++ Eyal/mcL [facility] Nitrite, UA Negative Negative - Positive [facility] pH, UA 6 5 - 9 [facility] Protein, UA Negative Negative - 1999(20) ++++ mg/dL [facility] Spec Grav, UA 1.01 1 - 1.03 [facility] Urobilinogen, UA 0.2 0.2 - 12 mg/dL [facility] STREP GP B CULTURE+RFLXon STREP GP B CULTURE+RFLX SEE SCANNED REPORT [facility] Urinalysis macro (dipstick) panel (U)on 10-31-2024 Bilirubin, UA Negative Negative - 4(70) +++ mg/dL [facility] Blood, UA Negative Negative - 50 Calderon/mcL [facility] Clarity, UA Clear [facility] Color, UA Yellow [facility] Glucose, UA Negative Negative - 1999(110) ++++ mg/dL [facility] Interpretation and review of laboratory results Normal [facility] Ketones, UA Negative Negative - 160(16) ++++ mg/dL [facility] Leukocytes, UA Trace Negative - 500+++ Eyal/mcL [facility] Nitrite, UA Negative Negative - Positive [facility] pH, UA 7 5 - 9 [facility] Protein, UA Negative Negative - 1999(20) ++++ mg/dL [facility] Spec Grav, UA 1.015 1 - 1.03 [facility] Urobilinogen, UA 0.2 0.2 - 12 mg/dL [facility] US OB BPP W NON-STRESS on 10-30-2024 The [facility] [address] [place] [address] Ultrasound Report Signed Patient: COLE BATISTA MR#: [id number] : 1995 Acct:[id number] Age/Sex: 28 / F ADM Date: 10/30/24 Loc: US Attending Dr: Zoey Mcneill Ordering Physician: Zoey Mcneill Date of Service: 10/30/24 Procedure(s): US OB BPP w non-stress Accession Number(s): [id number] cc: STEFFEN MARSHALL ; Zoey Mcneill The [address] [address] Patient Name: COLE BATISTA MRN: [facility]:[id number] date: 1995 Sex: F Assigned Patient Location: [facility] Current Patient Location: Accession/Order Number: [id number] Exam Date: 10/30/2024 13:27 Report Date: 10/30/2024 13:28 At the request of: ZOEY MCNEILL Procedure: US OB BPP w non-stress Ultrasound biophysical profile HISTORY: Gestational diabetes There is adequate breathing movement, gross body movement, tone and amniotic fluid volume for total score of 8 out of 8. The amniotic fluid index is 10.6 cm within normal limits. The heart rate 135 bpm. US/US OB BPP w non-stress IMPRESSION: Adequate ultrasound biophysical profile. Impression dictated by: Baldemar López M.D.10/30/2024 1:28 PM Dictation Location: [place] [address] Electronically authenticated by: [id number] Y Date: 10/30/2024 13:28 Dictated By: Baldemar López D.O. Signed By: 10/30/24 1331 DD/ 1328 TD/TT: Machine Assembler For Puller Over: [facility] Radiology, Radiologist, MD - 10/30/2024 The [place] [id number] Ultrasound Report Signed Patient: COLE BATISTA MR#: [id number] : 1995 Acct:[id number] Age/Sex: 28 / F ADM Date: 10/30/24 Loc: US Attending Dr: Zoey Mcneill Ordering Physician: Zoey Mcneill Date of Service: 10/30/24 Procedure(s): US OB BPP w non-stress Accession Number(s): [id number] cc: STEFFEN MARSHALL ; Zoey Mcneill [address] [address] Patient Name: COLE BATISTA MRN: [facility]:[id number] date: 1995 Sex: F Assigned Patient Location: [facility] Current Patient Location: Accession/Order Number: [id number] Exam Date: 10/30/2024 13:27 Report Date: 10/30/2024 13:28 At the request of: ZOEY MCNEILL Procedure: US OB BPP w non-stress Ultrasound biophysical profile HISTORY: Gestational diabetes There is adequate breathing movement, gross body movement, tone and amniotic fluid volume for total score of 8 out of 8. The amniotic fluid index is 10.6 cm within normal limits. The heart rate 135 bpm. US/US OB BPP w non-stress IMPRESSION: Adequate ultrasound biophysical profile. Impression dictated by: Baldemar López M.D.10/30/2024 1:28 PM Dictation Location: [employer] Electronically authenticated by: [id number] Y Date: 10/30/2024 13:28 Dictated By: Baldemar López D.O. Signed By: 10/30/24 1331 DD/ 1328 TD/TT: Machine Assembler For Puller Over: [facility] Radiology Study observation (narrative) [facility] US OB BPP W NON-STRESS Ordered By: Radiologist Radiology on 10-30-2024 [facility] Work Phone: Urinalysis macro (dipstick) panel (U)on 10-24-2024 Bilirubin, UA Negative Negative - 4(70) +++ mg/dL [facility] Blood, UA Negative Negative - 50 Calderon/mcL [facility] Clarity, UA Clear [facility] Color, UA Yellow [facility] Glucose, UA Negative Negative - 2000(110) ++++ mg/dL [facility] Interpretation and review of laboratory results Normal [facility] Ketones, UA Negative Negative - 160(16) ++++ mg/dL [facility] Leukocytes, UA Trace Negative - 500+++ Eyal/mcL [facility] Nitrite, UA Negative Negative - Positive [facility] pH, UA 6.5 5 - 9 [facility] Protein, UA Negative Negative - 2000(20) ++++ mg/dL [facility] Spec Grav, UA 1.01 1 - 1.03 [facility] Urobilinogen, UA 0.2 0.2 - 12 mg/dL [facility] US OB BPP W NON-STRESS on 10-23-2024 [place] [address] Ultrasound Report Signed Patient: COLE BATISTA MR#: [id number] : 1995 Acct:[id number] Age/Sex: 28 / F ADM Date: 10/23/24 Loc: Attending Dr: Zoey Mcneill Ordering Physician: Zoey Mcnelil Date of Service: 10/23/24 Procedure(s): US OB BPP w non-stress Accession Number(s): [id number] cc: STEFFEN MARSHALL ; Zoey Mcneill [place] [id number] Patient Name: COLE BATISTA MRN: [id number] date: 1995 Sex: F Assigned Patient Location: Current Patient Location: US Accession/Order Number: [id number] Exam Date: 10/23/2024 11:42 Report Date: 10/23/2024 [...] Rema Farmer M.D.10/23/2024 11:44 AM Dictation Location: [place] [address] Electronically authenticated by: [id number] Y Date: 10/23/2024 11:44 Dictated By: Rema Farmer M.D. Signed By: 10/23/24 1146 DD/ 1144 TD/TT: Machine Assembler For Puller Over: [facility] Radiology, Radiologist, MD - 10/23/2024 [place] [address] Ultrasound Report Signed Patient: COLE BATISTA MR#: [id number] : 1995 Acct:[id number] Age/Sex: 28 / F ADM Date: 10/23/24 Loc: US Attending Dr: Zoey Mcneill Ordering Physician: Zoey Mcneill Date of Service: 10/23/24 Procedure(s): US OB BPP w non-stress Accession Number(s): [id number] cc: STEFFEN MARSHALL ; Zoey Mcneill [address] [address] Patient Name: COLE BATISTA MRN: [facility]:[id number] date: 1995 Sex: F Assigned Patient Location: Current Patient Location: Accession/Order Number: [id number] Exam Date: 10/23/2024 11:42 Report Date: 10/23/2024 [...] This is in low-normal range. Total score: 02/15 US/US OB BPP w non-stress IMPRESSION: NORMAL BIOPHYSICAL PROFILE Impression dictated by: Rema Farmer M.D.10/23/2024 11:44 AM Dictation Location: [place] [address] Electronically authenticated by: [id number] Y Date: 10/23/2024 11:44 Dictated By: Rema Farmer M.D. Signed By: 10/23/24 1146 DD/ 1144 TD/TT: Machine Assembler For Puller Over: [facility] Radiology Study observation (narrative) [facility] US OB BPP W NON-STRESS Ordered By: Radiologist Radiology on 10-23-2024 [facility] Work Phone: Urinalysis macro (dipstick) panel (U)on 10-17-2024 Bilirubin, UA Negative Negative - 4(70) +++ mg/dL [facility] Blood, UA Negative Negative - 50 Calderon/mcL [facility] Clarity, UA Clear [facility] Color, UA Yellow [facility] Glucose, UA Positive Negative - 1999(110) ++++ mg/dL [facility] Comment on above: 250 Interpretation and review of laboratory results Abnormal [facility] Ketones, UA Positive Negative - 160(16) ++++ mg/dL [facility] Comment on above: trace Leukocytes, UA Trace Negative - 500+++ Eyal/mcL [facility] Nitrite, UA Negative Negative - Positive [facility] pH, UA 6.5 5 - 9 [facility] Protein, UA Positive Negative - 2000(20) ++++ mg/dL [facility] Comment on above: trace Spec Grav, UA 1.025 1 - 1.03 [facility] Urobilinogen, UA 0.2 0.2 - 12 mg/dL [facility] Urinalysis macro (dipstick) panel (U)on 10-03-2024 Bilirubin, UA Negative Negative - 4(70) +++ mg/dL [facility] Blood, UA Negative Negative - 50 Calderon/mcL [facility] Clarity, UA Clear [facility] Color, UA Yellow [facility] Glucose, UA Negative Negative - 1999(110) ++++ mg/dL [facility] Interpretation and review of laboratory results Normal [facility] Ketones, UA Negative Negative - 160(16) ++++ mg/dL [facility] Leukocytes, UA Negative Negative - 500+++ Eyal/mcL [facility] Nitrite, UA Negative Negative - Positive [facility] pH, UA 6 5 - 9 [facility] Protein, UA Negative Negative - 2000(20) ++++ mg/dL [facility] Spec Grav, UA 1.01 1 - 1.03 [facility] Urobilinogen, UA 0.2 0.2 - 12 mg/dL [facility] US OB FOLLOW UP TRANSABDOMIN AL APPROACHon [...] II, MD, PHD at 20-Sep-2024 09:03:12 AM [facility] Normal Not Available Comment on above: Order Comment: US OB SCAN FOR GROWTH Estimated Date of Delivery: 11/19/24 Gestational Age as of 09/05/2024: 29w2d Urinalysis macro (dipstick) panel (U)on 09-19-2024 Bilirubin, UA Negative Negative - 4(70) +++ mg/dL [facility] Blood, UA Negative Negative - 50 Calderon/mcL [facility] Clarity, UA Clear [facility] Color, UA Yellow [facility] Glucose, UA Negative Negative - 1999(110) ++++ mg/dL [facility] Interpretation and review of laboratory results Normal [facility] Ketones, UA Negative Negative - 160(16) ++++ mg/dL [facility] Leukocytes, UA Negative Negative - 500+++ Eyal/mcL [facility] Nitrite, UA Negative Negative - Positive [facility] pH, UA 7.5 5 - 9 [facility] Protein, UA Negative Negative - 1999(20) ++++ mg/dL [facility] Spec Grav, UA 1.02 1 - 1.03 [facility] Urobilinogen, UA 0.2 0.2 - 12 mg/dL [facility] Urinalysis macro (dipstick) panel (U)on 09-05-2024 Bilirubin, UA Negative Negative - 4(70) +++ mg/dL [facility] Blood, UA Negative Negative - 50 Calderon/mcL [facility] Clarity, UA Clear [facility] Color, UA Micaela [facility] Glucose, UA Positive Negative - 1999(110) ++++ mg/dL [facility] Comment on above: 100 Interpretation and review of laboratory results Abnormal [facility] Ketones, UA Negative Negative - 160(16) ++++ mg/dL [facility] Leukocytes, UA Positive Negative - 500+++ Eyal/mcL [facility] Comment on above: small Nitrite, UA Negative Negative - Positive [facility] pH, UA 6 5 - 9 [facility] Protein, UA Negative Negative - 1999(20) ++++ mg/dL [facility] Spec Grav, UA 1.01 1 - 1.03 [facility] Urobilinogen, UA 0.2 0.2 - 12 mg/dL [facility] US OB LIMITED 1+ FETUSESon 0 08-27-2024 [...] II, MD, PHD at 29-Aug-2024 08:00:42 AM [facility] Normal Not Available Comment on above: Order Comment: US OB INCOMPLETE ANATOMY Estimated Date of Delivery: 11/19/24 Gestational Age as of 08/21/2024: 28w0d GLUCOSE TOLERANCE 3 HOURon 0 08-24-2024 GLUCOSE TOLERANCE 3 HOUR High mg/dL [facility] Comment on above: GLU FAST 96H (<95) C ol: 08/24/24 1004 GLU 1HR 189H (<180) Col: 08/24/24 1105 GLU 2HR 149 (<155) Col: 08/24/24 1207 GLU 3HR 119 (<140) Col: 08/24/24 1308 Interpretation and review of laboratory results Abnormal [facility] OB LIMITED 1+ FETUSESon 0 08-02-2024 OB [...] UA Negative Negative - 4(70) +++ mg/dL [facility] Blood, UA Negative Negative - 50 Calderon/mcL [facility] Clarity, UA Clear [facility] Color, UA Yellow [facility] Glucose, UA Negative Negative - 1999(110) ++++ mg/dL [facility] Interpretation and review of laboratory results Abnormal [facility] Ketones, UA Negative Negative - 160(16) ++++ mg/dL [facility] Leukocytes, UA Trace Negative - 500+++ Eyal/mcL [facility] Nitrite, UA Negative Negative - Positive [facility] pH, UA 7 5 - 9 [facility] Protein, UA Negative Negative - 2000(20) ++++ mg/dL [facility] Spec Grav, UA 1.02 1 - 1.03 [facility] Urobilinogen, UA 0.2 0.2 - 12 mg/dL [facility] AFP, SERUM, OPEN SPINA BIFID Aon 07-16-2024 AFP MOM 1.03 . [facility] AFP VALUE 76.2 ng/mL . [facility] COMMENT: Comment . [facility] Comment on above: Winifred Burch , Ph.D., [facility] Director References: Available Upon Request. Multiples Of Median Cutoffs For AFP Elevations Moffett 2.5 Black 2.8 IDD 2.0 Twins 4.5 Abbreviation Definitions IDD - Insulin Dep Diabetes OSBR - Open Spina Bifida Risk For further inquiries contact [facility] at [phone]. This test was developed and its performance characteristics determined by [employer]. It has not been cleared or approved by the Food and Drug Administration. Performed at: [facility] [address], [place], [place] [id number] [employer] Supervisor: Babita Carranza [facility], Phone: [phone] GEST. AGE ON COLLECTION DATE 21.6 . weeks [facility] GESTAT. AGE BASED ON LMP . [facility] Comment on above: Recalculations are n ot recommended when gestational dating by LMP and ultrasound are within 10 days. INSULIN DEP DIABETES No . [facility] INTERPRETATION Comment . [facility] Comment on above: Interpretation: Scre en Negative [...] Customer Services to discuss available options. The [employer] recommends amniocentesis be offered to women age 35 and older. [age] H[age]ARY [age] [facility] MULTIPLE GESTATION No . [facility] OSBR [place]K [address] [place] [id number] . [facility] RACE Other . [facility] RESULTS Report . [facility] TEST RESULTS: Negative . [facility] WEIGHT 135 . lbs [facility] N N LMP [id number] 19 N 1 Y 135 N N N N N Other [facility] IGP,APTIMA HPV,AGE GDLNon AGE GDLN ACOG TESTING Note . [facility] Comment on above: TESTS RESULT FLAG UN ITS REF RANGE LAB Clinician Provided Cytology Information Source.............[employer] Other.............. No. of containers..01 ThinPrep Vial Age Algo ACOG Bettye... FLAG LEGEND: L-Low Normal,H-High Normal,LL-Alert Low,HH-Alert High <-Panic Low,>-Panic High,A-Abnormal,AA-Critical Abnormal Performed at: 01 =G [facility] [place] [address] [facility] [place] [address] Grecia Wright MD, IGP, RFX APTIMA HPV ASCU Note . [facility] Comment on above: TESTS RESULT FLAG UN ITS REF RANGE LAB DIAGNOSIS: 02 NEGATIVE FOR INTRAEPITHELIAL LESION OR MALIGNANCY. Specimen adequacy: 02 Satisfactory for evaluation. No endocervical component is identified. An endocervical component is not commonly seen in the patient. Performed by: Claribel Minor, Cat Tender ([facility]) . 02 Note: Note 02 [...] High,A-Abnormal,AA-Critical Abnormal Performed at: 02 WB [facility] [place] [address] [place] [address] Grecia Wright MD, Performed at: = - [facility] [id number] [employer] Supervisor: Grecia Wright MD, Phone: [phone] Performed at: [facility] [id number] [employer] Supervisor: Grecia Wright MD, Phone: [phone] [facility] RECURRENT VAGINITIS (HTRX)on 06-26-2024 ATOPOBIUM VAGINAE 15.84 Abnormal [facility] ATOPOBIUM VAGINAE Detected Abnormal [facility] BVAB 2,3 (BACTERIAL VAGINOSIS ASSOCIATED BACTERIA 2, 3); MOBILUNCUS SPP 24.558 Abnormal [facility] BVAB 2,3 (BACTERIAL VAGINOSIS ASSOCIATED BACTERIA 2, 3); MOBILUNCUS SPP Detected Abnormal [facility] SOHAM ALBICANS, PARAPSILOSIS, TROPICALIS 0 [facility] SOHAM ALBICANS, PARAPSILOSIS, TROPICALIS Not detected [facility] SOHAM GLABRATA 0 [facility] SOHAM GLABRATA Not detected [facility] SOHAM KRUSEI 0 [facility] SOHAM KRUSEI Not [facility] CHL[facility] 0 [facility] CHLAMYDIA TRACHOMATIS Not detected [facility] GARDNERELLA VAGINALIS 21.394 Abnormal [facility] GARDNERELLA VAGINALIS Detected Abnormal [facility] Interpretation and review of laboratory results Abnormal [facility] MEGASPHAERA (TYPES 1, 2) 0 [facility] MEGASPHAERA (TYPES 1, 2) Not detected [facility] MYCOPLASMA GENITALIUM 0 [facility] MYCOPLASMA GENITALIUM Not detected [facility] NEISSERIA GONORRHOEAE 0 [facility] NEISSERIA GONORRHOEAE Not detected [facility] TET B, TET M 18.181 Abnormal [facility] TET B, TET M Detected Abnormal [facility] TRICHOMONAS VAGINALIS 0 [facility] TRICHOMONAS VAGINALIS Not detected N [facility] Urinalysis macro (dipstick) panel (U)on 06-25-2024 Bilirubin, UA Negative Negative - 4(70) +++ mg/dL [facility] Blood, UA Negative Negative - 50 Calderon/mcL [facility] Clarity, UA Clear [facility] Color, UA Yellow [facility] Glucose, UA Negative Negative - 2000(110) ++++ mg/dL [facility] Interpretation and review of laboratory results Abnormal [facility] Ketones, UA Negative Negative - 160(16) ++++ mg/dL [facility] Leukocytes, UA Trace Negative - 500+++ Eyal/mcL [facility] Nitrite, UA Negative Negative - Positive [facility] pH, UA 6 5 - 9 [facility] Protein, UA Negative Negative - 1999(20) ++++ mg/dL [facility] Spec Grav, UA 1.01 1 - 1.03 [facility] Urobilinogen, UA 0.2 0.2 - 12 mg/dL [facility] Urinalysis macro (dipstick) panel (U)on 05-28-2024 Bilirubin, UA Negative Negative - 4(70) +++ mg/dL [facility] Blood, UA Negative Negative - 50 Calderon/mcL [facility] Clarity, UA Clear [facility] Color, UA Yellow [facility] Glucose, UA Negative Negative - 1999(110) ++++ mg/dL [facility] Interpretation and review of laboratory results Normal [facility] Ketones, UA Negative Negative - 160(16) ++++ mg/dL [facility] Leukocytes, UA Negative Negative - 500+++ Eyal/mcL [facility] Nitrite, UA Negative Negative - Positive [facility] pH, UA 7 5 - 9 [facility] Protein, UA Negative Negative - 1999(20) ++++ mg/dL [facility] Spec Grav, UA 1.015 1 - 1.03 [facility] Urobilinogen, UA 0.2 0.2 - 12 mg/dL [facility] ALL CBC WITH AUTO DIFFon BASOPHILS ABSOLUTE AUTO 0 [facility] Basophils/100 WBC (Bld) 0.2 % 0.2 - 2.0 % [facility] Eosinophils/100 WBC (Bld) 1.1 % 0.9 - 7.0 % [facility] Erythrocyte distribution width (RBC) [Ratio] 12.2 % 11.0 - 15.0 % [facility] Hematocrit (Bld) [Volume fraction] 36.9 % 36.0 - 48.0 % [facility] Hemoglobin (Bld) [Mass/Vol] 12.8 g/dL 12.0 - 16.0 g/dL [facility] IMMATURE GRANULOCYTES ABS AUTO 0.03 [facility] Immature granulocytes/100 WBC (Bld) 0.3 % 0.0 - 0.5 % [facility] Interpretation and review of laboratory results Abnormal [facility] LYMPHOCYTES ABSOLUTE AUTO 1.8 [facility] Lymphocytes/100 WBC (Bld) 19.8 % Low 20.5 - 60.0 % [facility] MCH (RBC) [Entitic mass] 29.9 pg 26.7 - 34.0 pg [facility] MCHC (RBC) [Mass/Vol] 34.7 g/dL 29.9 - 35.2 g/dL [facility] MCV (RBC) [Entitic vol] 86.2 fL 81.0 - 99.0 fL [facility] MONOCYTES ABSOLUTE AUTO 0.5 [facility] Monocytes/100 WBC (Bld) 5.5 % 1.7 - 12.0 % [facility] NEUTROPHILS ABSOLUTE AUTO 6.5 [facility] Neutrophils/100 WBC (Bld) 73.1 % 43.0 - 75.0 % [facility] Platelet mean volume (Bld) [Entitic vol] 9.4 fL Low 9.5 - 13.5 fL [facility] EO # 0.1 [facility] PLT 309 [facility] RBC 4.28 [facility] WBC 9 [facility] HCG ( test) Ql (U)o n 04-27-2024 Interpretation and review of laboratory results Abnormal [facility] Preg Test, Ur Positive [facility] Urinalysis macro (dipstick) panel (U)on 04-27-2024 Bilirubin, UA Negative Negative - 4(70) +++ mg/dL [facility] Blood, UA Negative Negative - 50 Calderon/mcL [facility] Clarity, UA Clear [facility] Color, UA Yellow [facility] Glucose, UA Negative Negative - 1999(110) ++++ mg/dL [facility] Interpretation and review of laboratory results Abnormal [facility] Ketones, UA Negative Negative - 160(16) ++++ mg/dL [facility] Leukocytes, UA Trace Negative - 500+++ Eyal/mcL [facility] Nitrite, UA Negative Negative - Positive [facility] pH, UA 7.5 5 - 9 [facility] Protein, UA Negative Negative - 1999(20) ++++ mg/dL [facility] Spec Grav, UA 1.02 1 - 1.03 [facility] Urobilinogen, UA 0.2 0.2 - 12 mg/dL [facility] Registrationon 02-17-2021 Registration [id number]# 1.00CD:127 [facility] Consent for Treatmenton Consent for Treatment [id number]# 1.00CD:127 [facility] Vital Signs Date Time Vital Sign Value Performing Clinician Layne armando 11-12-2024 15:40-0400 Body weight 66.34 kg Wale Kenny DO Work Phone: [facility] 11-12-2024 15:40-0400 Diastolic blood pressure 80 mm[Hg] Wale Kenny DO Work Phone: [facility] 11-12-2024 15:40-0400 Systolic blood pressure 110 mm[Hg] Wale Kenny DO Work Phone: [facility] 11-06-2024 13:04-0400 Body weight 65.89 kg Wale Kenny DO Work Phone: [facility] 10-31-2024 13:23-0400 Body weight 64.86 kg Virgie Mathis MACHINE GUNNER Work Phone: [facility] 10-31-2024 13:23-0400 Diastolic blood pressure 62 mm[Hg] Virgie Del MACHINE GUNNER Work Phone: [facility] 10-31-2024 13:23-0400 Systolic blood pressure 102 mm[Hg] Virgie Del MACHINE GUNNER Work Phone: [facility] 10-24-2024 13:40-0400 Body weight 65.77 kg Wale Kenny DO Work Phone: [facility] 10-24-2024 13:40-0400 Diastolic blood pressure 62 mm[Hg] Wale Kenny DO Work Phone: [facility] 10-24-2024 13:40-0400 Systolic blood pressure 104 mm[Hg] Wale Kenny DO Work Phone: [facility] 10-17-2024 13:21-0400 Body weight 66.13 kg Zoey Charito PA Work Phone: [facility] 10-17-2024 13:21-0400 Diastolic blood pressure 70 mm[Hg] Zoey Charito PA Work Phone: [facility] 10-17-2024 13:21-0400 Systolic blood pressure 110 mm[Hg] Zoey Charito PA Work Phone: [facility] 10-03-2024 14:16-0400 Body weight 64.86 kg Wale Kenny DO Work Phone: [facility] 10-03-2024 14:16-0400 Diastolic blood pressure 68 mm[Hg] Wale Kenny DO Work Phone: [facility] 10-03-2024 14:16-0400 Systolic blood pressure 110 mm[Hg] Wale Kenny DO Work Phone: [facility] 09-19-2024 14:50-0400 Body weight 65.77 kg Zoey Charito PA Work Phone: [facility] 09-19-2024 14:50-0400 Diastolic blood pressure 70 mm[Hg] Zoey Charito PA Work Phone: [facility] 09-19-2024 14:50-0400 Systolic blood pressure 118 mm[Hg] Zoey Mcneill PA Work Phone: [facility] 09-05-2024 13:56-0500 Body weight 65.23 kg Wale Kenny DO Work Phone: [facility] 09-05-2024 13:56-0500 Diastolic blood pressure 60 mm[Hg] Wale Kenny DO Work Phone: [facility] 09-05-2024 13:56-0500 Systolic blood pressure 118 mm[Hg] Wale Kenny DO Work Phone: [facility] 08-21-2024 13:34-0500 Body weight 64.41 kg Zoey Charito PA Work Phone: [facility] 08-21-2024 13:34-0500 Diastolic blood pressure 68 mm[Hg] Zoey WADE Work Phone: [facility] 08-21-2024 13:34-0500 Systolic blood pressure 102 mm[Hg] Zoey Mcneill PA Work Phone: [facility] 07-24-2024 14:29-0500 Body weight 64.32 kg Wale Kenny DO Work Phone: [facility] 07-24-2024 14:29-0500 Diastolic blood pressure 72 mm[Hg] Wale Kenny DO Work Phone: [facility] 07-24-2024 14:29-0500 Systolic blood pressure 100 mm[Hg] Wale Kenny DO Work Phone: [facility] 06-25-2024 14:52-0500 Body weight 61.15 kg Zoey WADE Work Phone: [facility] 06-25-2024 14:52-0500 Diastolic blood pressure 70 mm[Hg] Zoey WADE Work Phone: [facility] 06-25-2024 14:52-0500 Systolic blood pressure 104 mm[Hg] Zoey WADE Work Phone: [facility] 05-28-2024 14:27-0500 Body weight 59.88 kg Wale Kenny DO Work Phone: [facility] 05-28-2024 14:27-0500 Diastolic blood pressure 62 mm[Hg] Wale Kenny DO Work Phone: [facility] 05-28-2024 14:27-0500 Systolic blood pressure 100 mm[Hg] Wale Kenny DO Work Phone: [facility] 04-27-2024 10:48-0400 Body weight 57.61 kg Noms Nurse [facility] 04-27-2024 10:48-0400 Diastolic blood pressure 68 mm[Hg] Noms Nurse [facility] 04-27-2024 10:48-0400 Systolic blood pressure 100 mm[Hg] [facility] Encounters Encounter Date Encounter Type Care Provider Facility Start: 11-16-2024 End: 11-16-2024 Clinisync Result Encounter Wale Kenny DO Work Phone: [facility] Unsolicited Start: 11-16-2024 End: 11-16-2024 Clinisync Result Encounter Wale Kenny DO Work Phone: [facility] Unsolicited Start: 11-15-2024 End: 11-15-2024 Clinisync Result Encounter Wale Kenny DO Work Phone: [facility] Unsolicited Start: 11-15-2024 End: 11-15-2024 [facility]ync Result Encounter Wale Kenny DO Work Phone: [facility] Unsolicited Start: 11-13-2024 End: 11-13-2024 Clinisync Result Encounter Wale Kenny DO Work Phone: [facility] Unsolicited Start: 11-13-2024 End: 11-13-2024 Clinisync Result Encounter Wale Kenny DO Work Phone: [facility] Unsolicited Start: 11-12-2024 End: 11-12-2024 flow sheet Wale Kenny DO Work Phone: [facility] Comment on above: Third trimester preg zac; 39 weeks gestation of Start: 11-12-2024 End: 11-12-2024 ambulatory WALE KENNY Not Available Start: 11-12-2024 End: 11-12-2024 Bamboo flowsheet Wale Kenny DO Work Phone: [facility] Start: 11-12-2024 End: 11-12-2024 Bamboo flowsheet Wale Kenny DO Work Phone: [facility] Start: 11-09-2024 End: 11-09-2024 Clinisync Result Encounter Generic External Data Provider [facility] Unsolicited Start: 11-09-2024 End: 11-09-2024 Clinisync Result Encounter Generic External Data Provider [facility] Unsolicited Start: 11-06-2024 End: 11-06-2024 Clinisync Result Encounter Generic External Data Provider [facility] Unsolicited Start: 11-06-2024 End: 11-06-2024 Clinisync Result Encounter Generic External Data Provider [facility] Unsolicited Start: 11-06-2024 End: 11-06-2024 flow sheet Wale Kenny DO Work Phone: [facility] Comment on above: Third trimester preg zac; 38 weeks gestation of Start: 11-06-2024 End: 11-06-2024 ambulatory WALE KENNY Not Available Start: 10-31-2024 End: 10-31-2024 Bamboo flowsheet Virgie Del MACHINE GUNNER Work Phone: [facility] Start: 10-31-2024 End: 10-31-2024 Bamboo flowsheet Virgie Del MACHINE GUNNER Work Phone: [facility] Start: 10-31-2024 End: 10-31-2024 flow sheet Virgie Del MACHINE GUNNER Work Phone: [facility] Comment on above: Third trimester preg zac; 37 weeks gestation of Start: 10-31-2024 End: 10-31-2024 ambulatory VIRGIE DEL Not Available Start: 10-30-2024 End: 10-30-2024 Clinisync Result Encounter Zoey WADE Work Phone: [facility] Unsolicited Start: 10-30-2024 End: 10-30-2024 Clinisync Result Encounter Zoey WADE Work Phone: [facility] Unsolicited Start: 10-24-2024 End: 10-24-2024 Bamboo flowsheet Wale Kenny DO Work Phone: [facility] Start: 10-24-2024 End: 11-02-2024 Bamboo flowsheet Wale Kenny DO Work Phone: [facility] Start: 10-24-2024 End: 11-02-2024 Clinisync Result Encounter Generic External Data Provider [facility] Unsolicited Start: 10-24-2024 End: 10-24-2024 flow sheet Wale Kenny DO Work Phone: [facility] Comment on above: Third trimester preg zac; 36 weeks gestation of Start: 10-24-2024 End: 10-24-2024 ambulatory WALE KENNY Not Available Start: 10-23-2024 End: 10-23-2024 Clinisync Result Encounter [...] Start: 07-24-2024 End: 07-24-2024 flow sheet Wale Kenyn DO Work Phone: [facility] Comment on above: 23 weeks gestation o f ; Second trimester ; Diabetes mellitus screening; Constipation, unspecified constipation type Start: 07-24-2024 End: 07-24-2024 ambulatory WALE KENNY Not Available Start: 07-24-2024 End: 07-24-2024 Bamboo flowsheet Wale Kenny DO Work Phone: [facility] Start: 07-24-2024 End: 07-24-2024 Bamboo flowsheet Wale Kenny DO Work Phone: [facility] Start: 07-13-2024 End: 07-16-2024 Clinisync Result Encounter Generic External Data Provider [facility] External Department Unsolicited Start: 07-13-2024 End: 07-16-2024 Clinisync Result Encounter Generic External Data Provider [facility] External Department Unsolicited Start: 06-25-2024 End: 06-25-2024 Patient encounter procedure Zoey WADE Work Phone: [facility] Start: 06-25-2024 End: 06-25-2024 flow sheet Zoey WADE Work Phone: [facility] Comment on above: 19 weeks gestation o f ; Second trimester ; Screening, , for anatomic survey; Exposure to STD; Vaginal discharge; Well woman exam with routine gynecological exam Start: 06-25-2024 End: 06-25-2024 ambulatory ZOEY MCNEILL Not Available Start: 06-25-2024 End: 06-25-2024 Bamboo flowsheet Zoey WADE Work Phone: [facility] Start: 06-25-2024 End: 07-02-2024 Bamboo flowsheet Zoey WADE Work Phone: [facility] Start: 06-25-2024 End: 07-02-2024 Clinisync Result Encounter Zoey WADE Work Phone: [facility] Unsolicited Start: 06-25-2024 End: 06-26-2024 External Result Encounter Zoey Charito WADE Work Phone: [facility] Unsolicited [...] Date Procedure Procedure Detail Performing Clinician Start: 11-16-2024 ALL CBC WITH AUTO DIFF Wale Kenny DO Work Phone: Start: 11-15-2024 ALL CBC WITH AUTO DIFF Wale Kenny DO Work Phone: Start: 11-13-2024 [facility] CBC WITH PLATEL ET NO DIFFERENTIAL Wale Kenny DO Work Phone: Start: 11-13-2024 [facility] DRUG SCREEN RAPI D (URINE) Wale Kenny DO Work Phone: Start: 11-12-2024 Urnls dip stick/tabl et rgnt non-auto w/o micrscp Wale Kenny DO Work Phone: Start: 11-09-2024 US AMNIOTIC FLUID VOLUME Generic External Data Provider Start: 11-06-2024 Urnls dip stick/tabl et rgnt non-auto w/o micrscp Wale Kenny DO Work Phone: Start: 11-06-2024 US OB BPP W NON-STRESS Generic External Data Provider Start: 10-31-2024 Urnls dip stick/tabl et rgnt non-auto w/o micrscp Virgie Mathis NP Work Phone: Start: 10-30-2024 US OB BPP W NON-STRESS Zoey WADE Work Phone: Start: 10-24-2024 Urnls dip stick/tabl et rgnt non-auto w/o micrscp Wale Kenny DO Work Phone: Start: 10-24-2024 STREP GP B CULTURE+RFLX Wale Kenny DO Work Phone: Start: 10-23-2024 [...] Influenza vaccination Influenz a Vaccine (Season Ended) [facility] Start: 11-13-2024 End: 11-13-2024 Patient encounter procedure 11/13/2024 1:00 PM EDT Routine [facility] [address] [place] [address] Wale Cox, DO [facility] [address] [place], [place] [id number] [facility] Start: 11-12-2024 End: 11-12-2024 Patient encounter procedure 11/12/2024 3:20 PM EDT Routine [facility] [address] [place] [address] Wale Cox, DO [address] [place] [address] Arrived [facility] Comment on above: Arrived Start: 11-06-2024 End: 11-06-2024 Patient encounter procedure 11/06/2024 1:00 PM EDT Routine [facility] [address] [place] [id number] Wale Cox, DO [address] [place] [address] [facility] Start: 10-31-2024 End: 10-31-2024 Patient encounter procedure [facility] Comment on above: Arrived Start: 10-24-2024 End: 10-24-2025 CULTURE, GROUP B STREP WITH SUSCEPTIBLITY CULTURE, GROUP B STREP WITH SUSCEPTIBLITY Lab Routine Third trimester Expected: 10/24/2024, Expires: 10/24/2025 [facility] Work Phone: Comment on above: Expected: 10/24/2024 , Expires: 10/24/2025 Start: 10-24-2024 End: 10-24-2024 Patient encounter procedure 10/24/2024 1:30 PM EDT Routine [facility] [address] [place] [address] Wale Cox, DO [address] [place] [address] [place] [address] [facility] Start: 10-17-2024 End: 10-17-2025 [...] PM EDT Routine [facility] [address] [place] [address] Zoey Mcneill PA [address] [place] [address] [facility] Start: 09-19-2024 End: 09-19-2024 Professional / ancillary services management 09/19/2024 2:00 PM EDT Ancillary Procedure [facility] [address] [place] [address] [facility] Start: 09-05-2024 End: 09-05-2024 Patient encounter procedure 09/05/2024 1:50 PM EST Routine [facility] [address] [place] [address] Wale Cox DO [address] [facility] [place] [address] [facility] Start: 08-27-2024 End: 08-27-2024 Professional / ancillary services management 08/27/2024 12:30 PM EST Ancillary Procedure [facility] [address] [place] [address] [facility] Start: 08-21-2024 End: 08-21-2025 US for US OB limited 1+ fetuses Imaging Routine Encounter for follow-up ultrasound of anatomy Expected: 08/21/2024, Expires: 08/21/2025 [facility] Work Phone: Comment on above: Expected: 08/21/2024 , Expires: 08/21/2025 Start: 08-21-2024 End: 08-21-2024 Patient encounter procedure 08/21/2024 1:00 PM EST Routine [facility] [address] [place] [place] [id number] Zoey Mcneill PA [address] [facility] [place], [place] [id number] [facility] Start: 08-02-2024 End: 08-02-2024 Professional / ancillary services management 08/02/2024 10:30 AM EST Ancillary Procedure [facility] [address] [place] [address] [facility] Start: 07-24-2024 End: 07-24-2024 Patient encounter procedure [facility] Comment on above: Arrived Start: 07-24-2024 End: 07-24-2025 CBC panel - Blood by Automated count CBC Lab Routine Diabetes mellitus screening Expected: 07/24/2024 (Approximate), Expires: 07/24/2025 [facility] Work Phone: Comment on above: Expected: 07/24/2024 (Approximate), Expires: 07/24/2025 Start: 07-24-2024 End: 07-24-2025 Measurement of glucose 1 hour after glucose challenge for glucose tolerance test Glucose tolerance, 1 hour Lab Routine Diabetes mellitus screening Expected: 07/24/2024 (Approximate), Expires: 07/24/2025 [facility] Comment on above: Expected: 07/24/2024 (Approximate), Expires: 07/24/2025 Start: 06-25-2024 End: 06-25-2024 Patient encounter procedure [facility] Comment on above: Arrived Start: 06-25-2024 End: 07-26-2024 Alpha fetoprotein, maternal Alpha fetoprotein, maternal Lab Routine 19 weeks gestation of Second trimester Expected: 06/25/2024 (Approximate), Expires: 07/26/2024 [facility] Comment on above: Expected: 06/25/2024 (Approximate), Expires: 07/26/2024 Start: 06-25-2024 End: 06-25-2025 US for US OB ANATOMY SINGLE W US OB CERVICAL LENGTH Imaging Routine Screening, , for anatomic survey Expected: 06/25/2024 (Approximate), Expires: 06/25/2025 [facility] Comment on above: Expected: 06/25/2024 (Approximate), Expires: 06/25/2025 Start: 05-28-2024 End: 05-28-2025 US for US OB ANATOMY SINGLE W US OB CERVICAL LENGTH Imaging Routine Second trimester Screening, , for anatomic survey Expected: 05/28/2024 (Approximate), Expires: 05/28/2025 [facility] Work Phone: Comment on above: Expected: 05/28/2024 (Approximate), Expires: 05/28/2025 Start: 05-28-2024 End: 05-28-2024 Patient encounter procedure 05/28/2024 1:40 PM EST Routine [facility] [address] [place] [address] Wale Cox, [address] [facility] [address] [place] [address] [facility] Start: 04-27-2024 End: 04-27-2025 ABO/Rh ABO/Rh Lab Routine Missed menses , unspecified gestational age Expected: 04/27/2024 (Approximate), Expires: 04/27/2025 [facility] Comment on above: Expected: 04/27/2024 (Approximate), Expires: 04/27/2025 Start: 04-27-2024 End: 04-27-2025 Blood type and Indirect antibody screen panel - Blood Type and screen Lab Routine Missed menses , unspecified gestational age Expected: 04/27/2024 (Approximate), Expires: 04/27/2025 [facility] Work Phone: Comment on above: Expected: 04/27/2024 (Approximate), Expires: 04/27/2025 Start: 04-27-2024 End: 04-27-2025 Drugs of abuse panel - Urine by Screen method Rapid drug screen, urine Lab Routine , unspecified gestational age Encounter for supervision of normal first in first trimester Expected: 04/27/2024 (Approximate), Expires: 04/27/2025 [facility] Comment on above: Expected: 04/27/2024 (Approximate), Expires: 04/27/2025 Start: 04-27-2024 End: 04-27-2025 US Pelvis transvaginal US OB transvaginal Imaging Routine Missed menses Expected: 04/27/2024 (Approximate), Expires: 04/27/2025 [facility] Comment on above: Expected: 04/27/2024 (Approximate), Expires: 04/27/2025 Start: 03-11-2024 Influenza vaccination Influenza Vacc ine (#1) [facility] Bacteria identified in Urine by Culture Urine culture Microbiology Routine Missed menses Ordered: 04/27/2024 [facility] Comment on above: Ordered: 04/27/2024 CBC W Auto Different ial panel - Blood CBC and differential Lab Routine Missed menses , unspecified gestational age Ordered: 04/27/2024 [facility] Comment on above: Ordered: 04/27/2024 CHLAMYDIA TRACHOMATI S (GENITO/STI) CHLAMYDIA TRACHOMATIS (GENITO/STI) Lab Routine Exposure to STD Ordered: 06/25/2024 [facility] Comment on above: Ordered: 06/25/2024 Cytology Cervical or vaginal smear or scraping study Pap Smear Pathology and Cytology Routine Well woman exam with routine gynecological exam Ordered: 06/25/2024 [facility] Work Phone: Comment on above: Ordered: 06/25/2024 Hemoglobin A1c/Hemoglobin.total in Blood Hemoglobin A1c Lab Routine Missed menses , unspecified gestational age Ordered: 04/27/2024 [facility] Comment on above: Ordered: 04/27/2024 Hepatitis B virus surface Ag [Presence] in Serum or Plasma by Immunoassay Hepatitis B surface antigen Lab Routine Missed menses , unspecified gestational age Ordered: 04/27/2024 [facility] Comment on above: Ordered: 04/27/2024 Hepatitis C virus Ab [Presence] in Serum or Plasma by Immunoassay Hepatitis C antibody Lab Routine Missed menses , unspecified gestational age Ordered: 04/27/2024 [facility] Comment on above: Ordered: 04/27/2024 HIV-1/HIV-2 antigen/antibody combination immunoassay HIV-1 and HIV-2 antibodies Lab Routine Missed menses , unspecified gestational age Ordered: 04/27/2024 [facility] Comment on above: Ordered: 04/27/2024 Neisseria gonorrhoea e DNA [Presence] in Unspecified specimen by CEDRICK with probe detection Neisseria gonorrhea DNA probe, direct Lab Routine Exposure to STD Ordered: 06/25/2024 [facility] Comment on above: Ordered: 06/25/2024 Reagin Ab [Presence] in Serum by RPR RPR Lab Routine Missed menses , unspecified gestational age Ordered: 04/27/2024 [facility] Comment on above: Ordered: 04/27/2024 Rubella antibody, IgG Rubella an tibody, IgG Lab Routine Missed menses , unspecified gestational age Ordered: 04/27/2024 [facility] Comment on above: Ordered: 04/27/2024 SURESWAB(R) ADVANCED VAGINITIS PLUS, TMA SURESWAB(R) ADVANCED VAGINITIS PLUS, TMA Pathology and Cytology Routine Vaginal discharge Ordered: 06/25/2024 [facility] Comment on above: Ordered: 06/25/2024 End: 09-05-2025 US for US OB follow up transabdominal approach Imaging Routine Gestational diabetes mellitus (GDM), antepartum, gestational diabetes method of control unspecified [id number] for 4 Occurrences starting 09/05/2024 until 09/05/2025 [facility] Work Phone: Comment on above: [id number] for 4 Occurr ences starting 09/05/2024 until 09/05/2025 Payers Date Payer Category Payer [facility] [id number] [id number] 2018 Unknown [id number] 1995 Unknown [id number] 2.16.84 [id number] 1995 Unknown [id number] 2.16.84 0.1.615838.3.579.2.1259 1995 Unknown [id number] 2.16.84 0.1.226507.3.579.2.9 1995 Unknown [id number] 2.16.84 0.1.526769.3.579.2.9 1995 Unknown [id number] 2.16.84 0.1.274170.3.579.2.9 1995 Unknown [id number] 2.16.84 0.1.402225.3.579.2.1258 1995 Unknown [id number] 2.16.84 0.1.851809.3.579.2.1258 1995 Unknown [id number] 2.16.84 0.1.297925.3.579.2.1258 1995 Unknown [id number] 2.16.84 0.1.876803.3.579.2.9 1995 Unknown [id number] 2.16.84 0.1.494227.3.579.2.1258 1995 Unknown [id number] 2.16.84 0.1.122634.3.579.2.9 1995 Unknown [id number] 2.16.84 0.1.181589.3.579.2.9 1995 Unknown [id number] 2.16.84 0.1.153139.3.579.2.9 1995 Unknown [id number] 2.16.84 0.1.530427.3.579.2.1258 1995 Unknown [id number] 2.16.84 0.1.585799.3.579.2.9 1995 Unknown [id number] 2.16.84 0.1.254972.3.579.2.1259 Social History Date Type Detail Facility Tobacco smoking stat [facility] Tobacco smoking consumption unknown [facility] Start: 02-27-2024 [facility] Start: 1995 Sex assigned at Not on file [facility] Gender identity Not on file [facility] Medical Equipment Procedure Code Equipment Code Equipment Origin al Text Equipment Identifier Dates [id number] Start: 08-30-2024 End: 09-29-2024 1 each by In Vit ro route Daily Use to check FSBS four times daily [id number] Start: 08-30-2024 End: 09-29-2024 Use as instructed [id number] Start: 09-26-2024 End: 10-17-2024 Clinical Notes 04-27-2024 to 11-12-2024 Virgie Mathis NP - 11/12/2024 3:20 PM Tee Espinoza LPN - 11/06/2024 1:00 PM EDPiter Natarajan MA - 10/31/2024 1:10 PM Tee Espinoza LPN - 10/24/2024 1:30 PM EDT Note Date & Type Note Facility 11-12-2024 History of Presen t illness Narrative Reason for Appointment: Patient ID: Cole Batista is a 28 y.o. female who presents for Routine Visit Patient presents today for Return OB appointment. MEDICATIONS Current Outpatient Medications Medication Instructions Alcohol Swabs (Alcohol Prep Pad) 70 % pads 1 Pad, Topical, Daily, Use four times daily to check FSBS. BD Veo Insulin Syringe U/F 31G X 15/64 0.5 ML misc USE DIRECTED Blood Glucose Monitoring Suppl ([employer] Glucometer) w/Device [...] nursing note reviewed. Exam conducted with a fuel cell battery technician present. Vitals: There is no height or weight on file to calculate BMI. BP: 110/80 Patient's last menstrual period was 02/13/2024. ASSESSMENT & PLAN ICD-10-CM 1. Third trimester Z34.93 2. 39 weeks gestation of Z3A.39 Return OB: Patient presents today for a routine obstetrics appointment. Patient is currently 39w0d . Patient states she is doing well but has complaints of being tired due to current . No orders of the defined types were placed in this encounter. Follow Up: Patient is scheduled for Cytotec induction 11/13/24 at 6:30 pm Documented by Vrigie Mathis NP on behalf of: Wale Cox DO documented in this encounter [facility] 11-06-2024 History of Presen t illness Narrative Reason for Appointment: Patient ID: Cole Batista is a 28 y.o. female who presents for Routine Visit Patient presents today for Return OB appointment. MEDICATIONS Current Outpatient Medications Medication Instructions Alcohol Swabs (Alcohol Prep Pad) 70 % pads 1 Pad, Topical, Daily, Use four times daily to check FSBS. BD Veo Insulin Syringe U/F 31G X 15/64 0.5 ML misc USE DIRECTED Blood Glucose Monitoring Suppl ([facility] Glucometer) w/Device kit 1 kit, Does not [...] nursing note reviewed. Exam conducted with a fuel cell battery technician present. Vitals: There is no height or weight on file to calculate BMI. BP: Patient's last menstrual period was 02/13/2024. ASSESSMENT & PLAN ICD-10-CM 1. Third trimester Z34.93 POCT urinalysis dipstick manually resulted 2. 38 weeks gestation of Z3A.38 Return OB: Patient presents today for a routine obstetrics appointment. Patient is currently 38w1d . Patient states she is doing well but has complaints of being tired due to current . Patient has verbalizes frequent movement. labor precautions was discussed/given and patient was instructed to perform kick counts three times a day. Orders Placed This Encounter Procedures POCT urinalysis dipstick manually resulted Follow Up: Patient is to return to office in 1 week for routine OB appointment. Documented by Rema Espinoza LPN on behalf of: Wale Cox DO documented in this encounter [facility] 10-31-2024 History of Presen t illness Narrative Reason for Appointment: Patient ID: Cole Batista is a 28 y.o. female who presents for Routine Visit Patient presents today for Return OB appointment. MEDICATIONS Current Outpatient Medications Medication Instructions Alcohol Swabs (Alcohol Prep Pad) 70 % pads 1 Pad, Topical, Daily, Use four times daily to check FSBS. BD Veo Insulin Syringe U/F 31G X 15/64 0.5 ML misc USE DIRECTED Blood Glucose Monitoring Suppl (D-Care Glucometer) w/Device [...] nursing note reviewed. Exam conducted with a fuel cell battery technician present. Vitals: There is no height or weight on file to calculate BMI. BP: 102/62 Patient's last menstrual period was 02/13/2024. ASSESSMENT & PLAN ICD-10-CM 1. Third trimester Z34.93 POCT urinalysis dipstick manually resulted 2. 37 weeks gestation of Z3A.37 Return OB: Patient presents today for a routine obstetrics appointment. Patient is currently 37w2d . Patient states she is doing well but has complaints of being tired due to current . Patient has verbalizes frequent movement. labor precautions was discussed/given and patient was instructed to perform kick counts three times a day. Orders Placed This Encounter Procedures POCT urinalysis dipstick manually resulted Patient did not bring FSBS results with her today. Patient is have antepartum testing done at [facility] and will bring sugars to next appointment. Follow Up: Patient is to return to office in 1 week for routine OB appointment. Documented by Keisha Natarajan MA on behalf of: Virgie Mathis NP documented in this encounter [facility] 10-24-2024 History of Presen t illness Narrative Reason for Appointment: Patient ID: Cole Batista is a 28 y.o. female who presents for Routine Visit Patient presents today for Return OB appointment. MEDICATIONS Current Outpatient Medications Medication Instructions Alcohol Swabs (Alcohol Prep Pad) 70 % pads 1 Pad, Topical, Daily, Use four times daily to check FSBS. Blood Glucose Monitoring Suppl ([employer] Glucometer) w/Device kit 1 kit, Does not [...] nursing note reviewed. Exam conducted with a fuel cell battery technician present. Vitals: There is no height or [...] Wale Cox DO documented in this encounter [facility] 10-17-2024 History of Presen t illness Narrative [...] of: MAURO Quesada documented in this encounter [facility] 10-03-2024 History of Presen t illness Narrative [...] nursing note reviewed. Exam conducted with a fuel cell battery technician present. Vitals: There is no height or [...] Wale Cox DO documented in this encounter [facility] 09-05-2024 History of Presen t illness Narrative Reason for Appointment: Patient ID: Cole Batista is a 28 y.o. female who presents for Routine Visit Patient presents today for Return OB appointment. MEDICATIONS Current Outpatient Medications Medication Instructions Alcohol Swabs (Alcohol Prep Pad) 70 % pads 1 Pad, Topical, Daily, Use four times daily to check FSBS. Blood Glucose Monitoring Suppl ([employer] Glucometer) w/Device kit 1 kit, Does not [...] nursing note reviewed. Exam conducted with a fuel cell battery technician present. Vitals: There is no height or [...] Wale Cox DO documented in this encounter [facility] 08-21-2024 History of Presen t illness Narrative [...] of: MAURO Quesada documented in this encounter [facility] 07-24-2024 History of Presen t illness Narrative [...] nursing note reviewed. Exam conducted with a fuel cell battery technician present. Vitals: There is no height or [...] Wale Cox DO documented in this encounter [facility] 06-25-2024 History of Presen t illness Narrative [...] obtained without difficulty and patient was given [facility] order to have obtained. Orders Placed [...] nursing note reviewed. Exam conducted with a fuel cell battery technician present. Vitals: There is no height or [...] obtained without difficulty and patient was given [facility] order to have obtained. Orders Placed [...] of: MAURO Quesada documented in this encounter [facility] 05-28-2024 History of Presen t illness Narrative [...] nursing note reviewed. Exam conducted with a fuel cell battery technician present. Vitals: There is no height or [...] or undercooked meat, and stay away from [facility]. Patient has been consulted regarding any [...] Wale Cox DO documented in this encounter [facility] 04-27-2024 History of Presen t illness Narrative [...] or undercooked meat, and stay away from [facility]. Patient has also been advised to [...] by: Sophy Bhakta documented in this encounter [facility] Healthcare Evaluation note Diagnosis Missed menses , [...] HealthcareEvaluation note* Diagnosis Third trimester state, incidental 37 weeks gestation of [facility] Diagnosis Third trimester state, incidental 38 weeks gestation of documented [facility] Diagnosis Third trimester state, incidental 39 weeks gestation of documented in this encounter [facility] Narrative* Keisha Natarajan MA - 09/19/2024 3:20 PM EDT Reason for Appointment: Patient ID: Cole Batista is a 28 y.o. female who presents for Routine Visit Patient presents today for Return OB appointment. MEDICATIONS Current Outpatient Medications Medication Instructions Alcohol Swabs (Alcohol Prep Pad) 70 % pads 1 Pad, Topical, Daily, Use four times daily to check FSBS. Blood Glucose Monitoring Suppl (D-[employer] Glucometer) w/Device kit 1 kit, Does not [...] nursing note reviewed. Exam conducted with a fuel cell battery technician present. Vitals: There is no height or [...] section and content) DATE CREATED AUTHOR 02/18/[address] [facility] DATE CREATED AUTHOR AUTHOR'S ORGANIZ ATION 11/15/2024 [facility] EPIC Reason for Visit (unrecogniz ed section and content) Reason Comments Initial Visit Reason Comments Routine Visit Care Teams (unrecognized sec tion and content) Medical Manager Relationship Specialty Start Date End Date Steffen Marshall MD [address] [facility] [address] [place] [address] PCP - General Family Medicine 11/16/22 Medical Manager Relationship Specialty Start Date End Date Steffen Marshall MD [address] [facility] [address] [place] [address] PCP - General Family Medicine 11/16/22 Medical Manager Relationship Specialty Start Date End Date Steffen Marshall MD [address] [facility] [address] [place] [address] PCP - General Family Medicine 11/16/22 Medical Manager Relationship Specialty Start Date End Date Steffen Marshall MD [address] [facility] [address] [place] [address] PCP - General Family Medicine 11/16/22 Medical Manager Relationship Specialty Start Date End Date Steffen Marshall MD [address] [facility] [address] [place] [address] PCP - General Family Medicine 11/16/22 Medical Manager Relationship Specialty Start Date End Date Steffen Marshall MD [address] [facility] [address] [place] [address] PCP - General Family Medicine 11/16/22 Medical Manager Relationship Specialty Start Date End Date Steffen Marshall MD [address] [facility] [address] [place] [address] PCP - General Family Medicine 11/16/22 Medical Manager Relationship Specialty Start Date End Date Steffen Marshall MD [address] [facility] [address] [place] [address] PCP - General Family Medicine 11/16/22 Medical Manager Relationship Specialty Start Date End Date Steffen Marshall MD [address] [facility] [address] [place] [address] PCP - General Family Medicine 11/16/22 Medical Manager Relationship Specialty Start Date End Date Steffen Marshall MD [address] [facility] [address] [place] [address] PCP - General Family Medicine 11/16/22 Medical Manager Relationship Specialty Start Date End Date Steffen Marshall MD [address] [facility] [address] [place] [address] PCP - General Family Medicine 11/16/22 Medical Manager Relationship Specialty Start Date End Date Steffen Marshall MD [address] [facility] [address] [place] [address] PCP - General Family Medicine 11/16/22 Medical Manager Relationship Specialty Start Date End Date Steffen Marshall MD [address] [facility] [address] [place] [address] PCP - General Family Medicine 11/16/22 Medical Manager Relationship Specialty Start Date End Date Steffen Marshall MD [address] [facility] [address] [place] [address] PCP - General Family Medicine 11/16/22 Medical Manager Relationship Specialty Start Date End Date Steffen Marshall MD [address] [facility] [address] [place] [address] PCP - General Family Medicine 11/16/22 Medical Manager Relationship Specialty Start Date End Date Steffen Marshall MD [address] [facility] [address] [place] [address] PCP - General Family Medicine 11/16/22 FOR [...] BE BASED ON THE PRIMARY CLINICAL RECORDS. [facility]. provides no warranty or guarantee of the accuracy or completeness of information in this document.
--- NOTE | 2024-11-19 15:58 | PC.NURSE ---
Alisha, Warren and Epifanio (Ursulaillio) arrive for follow up. Parents states feeling rested today but that first days at home were hard. Mom states milk coming in has helped tremendously. Baby continues to latch with shield, has copious milk and audible swallows. Parents reports frequent diaper changes with 6+ wets and 5+ stols. Infant has 2 voids during assessment and 1 green yellow stool. Alisha has VSS and assessment WNL. States stitches are bothersome today, feels irritated and itchy. Encouraged to use saw bottle, tucks and dermaplast for care. Maria Esther is quiet and alert, slight jaundice noted. Vss and assessment WNL. rooting and searching. Mom uses good positioning and latch skills, breast is large and heavy with milk coming in fully. encouraged to support the breast for latch. Baby latches and pulls off several times. Mom places shield correctly and latches easily. Nurses 20 min. Attempted to remove shield X 1 and infant just held nipple in mouth. Finished feed with shield. Discussed methods to discontinue shield use, parents verbalize understanding. Will return in 1 week for support. Family leaves ambulatory with in car seat.
[2024-11-19 15:59] VITALS: BP 123/76; PULSE 62; TEMP 36.7; O2SAT 98
== END 2024-11-19 16:03 | disposition home or self-care (01) ==
LOC: FBCO 10:31
PROVIDERS: PCP Family Medicine; Visit Provider Obstetrics & Gynecology
DX: Z39.1 Encounter for care and examination of lactating mother (principal)

== ENCOUNTER 2024-11-26 08:58 | Outpatient (OUT) | payer BC, SELFPAY | END 2024-11-26 13:36 | disposition home or self-care (01) | LOC: FBCO 09:00 | PROVIDERS: PCP Family Medicine; Visit Provider Obstetrics & Gynecology | DX: Z39.1 Encounter for care and examination of lactating mother (principal) | CPT/HCPCS: G0463 ==

== ENCOUNTER 2025-06-27 19:02 | Outpatient (REF) | payer OTHER, SELFPAY ==
--- OUTSIDE RECORDS SUMMARY | 2025-06-27 09:30 | XMS_ITS | Encounter Summary ---
Author Organization [facility] Address [address] [facility] [place] [address] Care Team Providers Care Farmworker Poultry Name Role Phone Unallocated, Noms Provider Primary Care Provi dora Reason for Visit * ReasonCommentsGynecologic Exam Encounter Details DateTypeDepartmentCare Team (Latest Contact Info)Bdeqxoezwqe44/18/2025 9:30 AM ESTOffice Visit IRIS NAVARRETE [address] [address] Zoey Dickson PA [address] [place], [place] [id number] Well woman exam with routine gynecological exam Social History Tobacco UseTypesPacks/DayYears UsedDateSmoking Tobacco: Never Assessed CommentsUnknownSex and Gender InformationValueDate RecordedSex Assigned at Not on fileLegal WxuFljixy04/15/2023 6:54 PM EDTGender IdentityNot on fileSexual OrientationNot on filedocumented as of this encounter Last Filed Vital Signs Vital SignReadingTime TakenCommentsBlood Unvnqsis489/6806/27/2025 9:49 AM EST Pulse--Temperature--Respiratory Rate--Oxygen Saturation--Inhaled Oxygen Concentration--Ltqxfi27.1 kg (148 lb)06/27/2025 9:49 AM ESTHeight--Body Mass Index--documented in this encounter Progress Notes * MAURO Quesada - 06/27/2025 9:30 AM EST Reason for Appointment: Patient ID: Alisha Batista is a 29 y.o. female who presents for Gynecologic Exam Patient presents today for Annual Exam. MEDICATIONS Current Outpatient Medications Medication Instructions ??? Alcohol Swabs (Alcohol Prep Pad) 70 % pads 1 Pad, Topical, Daily, Use four times daily to checkFSBS. ??? BD Veo Insulin Syringe U/F 31G X 0.5 ML misc USE DIRECTED ??? Blood Glucose Monitoring Suppl (D-Care Glucometer) w/Device kit 1 kit, Does not apply, Daily, Use four times daily to check FSBS. In the morning prior to breakfast & 1 hour after each meal for a total of 4times daily. ??? iron polysaccharides (PROFE) 391.3 mg, Oral, Daily ??? norethindrone (MICRONOR) 0.35 mg, Oral, Daily, Take 1 tablet by mouth daily ALLERGIES Allergies Allergen Reactions ??? Shrimp (Diagnostic) PROBLEMS Active Ambulatory Problems Diagnosis Date Noted ??? Screening, , for anatomic survey ([facility]) 05/28/2024 Resolved Ambulatory Problems Diagnosis Date Noted ??? Second trimester ([facility]) 05/28/2024 ??? 15 weeks gestation of ([facility]) 05/28/2024 ??? headache, antepartum ([facility]) 05/28/2024 ??? Marginal placenta previa ([facility]) 07/05/2024 Past Medical History: Diagnosis Date ??? Gestational diabetes ([facility]) HISTORY PAST MEDICAL HISTORY SOCIAL HISTORY Past Medical History: Diagnosis Date ??? Gestational diabetes ([facility]) Social History Tobacco Use ??? Smoking status: Not on file ??? Smokeless tobacco: Not on file Substance Use Topics ??? Alcohol use: Not on file ??? Drug use: Not on file FAMILY HISTORY [...] nursing note reviewed. Exam conducted with a research biostatistician present. Vitals: There is no height or weight on file to calculate BMI. BP: 108/68 No LMP recorded. ASSESSMENT & PLAN ICD-10-CM 1. Well woman exam with routine gynecological exam Z01.419 Pap Smear Assessment/Plan Annual Exam: Patient presents today for an annual exam. Patient states she is doing well and has no complaints. Pap was obtained without difficulty. No orders of the defined types were placed in this encounter. Follow Up: Patient is to return in one year for annual unless needed otherwise. Documented by Neisha Jones CST on behalf of: MAURO Quesada documented in this encounter Plan of Treatment DateTypeDepartmentCare Team (Latest Contact Info)Lcctzqvusgz45/22/2026 10:00 AM ESTProcedure Visit IRIS NAVARRETE [address] [place] [address] Zoey Dickson PA [address] [place] [address] NameTypePriorityAssociated DiagnosesOrder SchedulePap SmearPathology and CytologyRoutine Well woman exam with routine gynecological exam Ordered: 06/27/2025documented as of this encounter Visit Diagnoses Diagnosis Well woman exam with routine gynecological exam Routine gynecological examination documented in this encounter Care Teams Team MemberRelationshipSpecialtyStart DateEnd Date Unallocated, Nombrayan Ramos MD [address] [place] [address] PCP - GeneralFamily Medicine11/16/24documented as of this encounter
--- OUTSIDE RECORDS SUMMARY | 2025-06-27 19:06 | XMS_ITS | Clinical Summary ---
Author Organization [facility] Address [address] [place] [address] Care Team Providers Care Full Stack Net Developer Name Role Phone Unallocated, Noms Provider Primary Care Provi dora Allergies Active AllergyReactionsCriticalityNoted DateCommentsShrimp (Diagnostic) 04/27/2024 Medications MedicationSigDispense QuantityRefillsLast FilledStart DateEnd DateStatus iron polysaccharides (ProFe) 391.3 (180 Fe) MG capsule Indications:Anemia during in second trimester ([facility])Take 1 capsule (391.3 mg) by mouth Daily 30 capsule 11008/07/0602636Active Alcohol Swabs (Alcohol Prep Pad) 70 % pads Indications:Gestational diabetes mellitus (GDM), antepartum, gestational diabetes method of control unspecified([facility]),Elevated glucose tolerance test Apply 1 Pad topically Daily Use four times daily to check FSBS. 150 each 5Active Blood Glucose Monitoring Suppl (D-Care Glucometer) w/Device kit Indications:Gestational diabetes mellitus (GDM), antepartum, gestational diabetes method of control unspecified([facility]),Elevated glucose tolerance test1 kit Daily Use four times daily to check FSBS. In the morning prior to breakfast & 1 hour after each meal for a total of 4times daily. 1 kit 506Active BD Veo Insulin Syringe U/F 31G X 15/64 0.5 ML misc USE NWEVGAUL48/19/2025Active norethindrone (Micronor) 0.35 MG tablet Indications:6 weeks follow-up ([facility])Take 1 tablet (0.35 mg) by mouth Daily for 28 days Take 1 tablet by mouth daily 28 tablet 1105Active Active Problems ProblemNoted DateDiagnosed DateScreening, , for anatomic survey ([facility])05/28/2024 Resolved Problems ProblemNoted DateDiagnosed DateResolved DateMarginal placenta previa ([facility]) /12/2024Second trimester ([facility])/5 weeks gestation of ([facility])/12/2024Pregnancy headache, antepartum ([facility])/12/2024 Encounters DateTypeDepartmentCare SqprSvcqxwapzus39/18/2025 9:30 AM ESTOffice Visit NOMDavid NAVARRETE [facility] [place] [address] Zoey Dickson PA Well woman exam with routine gynecological exam06/27/2025amboo flowsheet NOMDavid NAVARRETE [address] [place] [address] Zoey Dickson PA from Last 3 Months Social History Tobacco UseTypesPacks/DayYears UsedDateSmoking Tobacco: Never Assessed CommentsUnknownSex and Gender InformationValueDate RecordedSex Assigned at Not on fileLegal XqwBgwnay80/15/2023 6:54 PM EDTGender IdentityNot on fileSexual OrientationNot on file Last Filed Vital Signs Vital SignReadingTime TakenCommentsBlood Hupmlmhr495/6806/27/2025 9:49 AM EST Pulse--Temperature--Respiratory Rate--Oxygen Saturation--Inhaled Oxygen Concentration--Vpfvvv71.1 kg (148 lb)06/27/2025 9:49 AM ESTHeight--Body Mass Index-- Plan of Treatment DateTypeDepartmentCare Team (Latest Contact Info)Afooosylhxx69/22/2026 10:00 AM ESTProcedure Visit NOMDaivd NAVARRETE [address] [place] [address] Zoey Dickson, PA [address] [place], [place] [id number] Health MaintenanceDue DateLast DoneCommentsCOVID-19 Vaccine (2024-26 season) 2025Influenza Vaccine (#1)2025Pneumococcal Vaccine: Pediatrics (0 to 5 Years) and At-Risk Patients (6 to 64 Years)Aged OutNo longer eligible based on patient's age to complete this topic Insurance Care Teams Team MemberRelationshipSpecialtyStart DateEnd Date Unallocated, Noms Provider, [address] [place] [address] PCP - GeneralFamily Medicine11/16/24
--- OUTSIDE RECORDS SUMMARY | 2025-06-27 19:06 | XMS_ITS | Encounter Summary ---
Author Organization [facility] Address [address] [facility] [address] [place] [address] Care Team Providers Care Rag Boiler Name Role Phone Unallocated, Noms Provider Primary Care Provi dora Encounter Details DateTypeDepartmentCare Team (Latest Contact Info)Nvcwajlrzum48/18/2025amboo flowsheet IRIS NAVARRETE [address] [place] [address] Zoey Dickson, PA [address] [place] [address] Social History Tobacco UseTypesPacks/DayYears UsedDateSmoking Tobacco: Never Assessed CommentsUnknownSex and Gender InformationValueDate RecordedSex Assigned at Not on fileLegal ZwvKjsblq48/15/2023 6:54 PM EDTGender IdentityNot on fileSexual OrientationNot on filedocumented as of this encounter Plan of Treatment DateTypeDepartmentCare Team (Latest Contact Info)Yxfnofkhhle14/22/2026 10:00 AM ESTProcedure Visit IRIS NAVARRETE [address] [place] [address] Zoey Dickson PA [address] [place] [address] documented as of this encounter Visit Diagnoses Not on filedocumented in this encounter Care Teams Team MemberRelationshipSpecialtyStart DateEnd Date Unallocated, [place] [address] PCP - GeneralFamily Medicine11/16/24documented as of this encounter
[2025-07-02 12:13] LABS: Age Gdln ACOG Testing Note (.); IGP, rfx Aptima HPV ASCU Note (.)
== END 2025-06-27 19:03 | disposition home or self-care (01) ==
LOC: LAB 19:02
PROVIDERS: PCP Family Medicine; Visit Provider Physician Assistant
DX: Z01.419 Encounter for gynecological examination (general) (routine) without abnormal findings (principal)
CPT/HCPCS: 88175